=== PATIENT | male | born 1950 | race Two or more races ===

== ENCOUNTER 2020-08-12 08:43 | Outpatient (REF) | payer MEDICARE, MEDICAID, SELFPAY ==
[2020-08-12 11:23] LABS: Blood Urea Nitrogen 31 mg/dL (9-16); Estimated Glomerular Filt Rate > 60
== END 2020-08-12 08:44 | disposition home or self-care (01) ==
LOC: HO.LAB 08:43
PROVIDERS: PCP Internal Medicine; Visit Provider Urology
DX: C61 Malignant neoplasm of prostate (principal)
CPT/HCPCS: 36415; 82565; 84520

== ENCOUNTER → 2020-08-15 10:47 | Outpatient (REF) | payer MEDICARE, MEDICAID, SELFPAY ==
--- NOTE | 2020-08-15 | NM_ITS ---
EXAMINATION: NM BONE SCAN OF THE WHOLE BODY CLINICAL INFORMATION: Prostate cancer. COMPARISON: No previous bone scan or recent radiographs are available for comparison. TECHNIQUE: Multiple gamma scintillation camera images of the whole body were performed 2.5 hours following the intravenous administration of 37 mCi Tc-99m MDP. FINDINGS: In the head, no significant abnormalities are present. In the thoracic cage and upper extremities, there is mildly increased activity in the acromioclavicular and sternoclavicular joints bilaterally. Some residual radiopharmaceutical at the injection site in the right antecubital fossa is noted. In the spine, no significant abnormalities are present. In the pelvis, no significant abnormalities are present. In the lower extremities, minimally increased activity is present in the patellar and medial compartments of both knees and there is a mild diffuse increase in activity in the proximal right foot. No other definite bony abnormalities are noted. The urinary bladder and faint visualization of both kidneys are noted. IMPRESSION: A few mild nonspecific abnormalities are noted as described above and these are all likely arthritic or traumatic in etiology. None of these abnormalities is strongly suspicious for metastatic disease.
== END ==
LOC: HO.NUCMED 10:47
PROVIDERS: PCP Internal Medicine; Visit Provider Urology
DX: C61 Malignant neoplasm of prostate (principal)
CPT/HCPCS: 78306; A9503

== ENCOUNTER 2020-08-23 07:43 | Outpatient (REF) | payer MEDICARE, MEDICAID, SELFPAY ==
--- NOTE | 2020-08-23 08:02 | CT_ITS ---
EXAMINATION: CT ABDOMEN AND PELVIS WITH CONTRAST CLINICAL INFORMATION: Prostate cancer. COMPARISON: Previous bone scan from earlier this month. TECHNIQUE: Multidetector volumetric images were obtained from the superior aspect of the liver through the pubic symphysis following administration 85 mL of Omnipaque 350 intravenous contrast. Sagittal and coronal reformatted images were obtained on the technologist's workstation. Oral contrast: No This CT examination was performed using dose optimization techniques as appropriate, variously including the following: *Automated exposure control *Adjustment of mA and/or kV according to patient size (this includes techniques or standardized protocols for targeted exams where dose is matched to indication/reason for exam; i.e. extremities or head) *Use of iterative reconstruction technique DLP: 707 mGy-cm FINDINGS: LUNG BASES: There are 2 small calcified 3 mm left lower lobe pulmonary nodules. These may represent calcified granulomas. Lung bases are otherwise clear. LIVER, GALLBLADDER, AND BILIARY TREE: The liver is normal in size, shape, and attenuation. No focal hepatic lesion or biliary ductal dilatation is present. The gallbladder is unremarkable with no evidence of radiopaque gallstones, gallbladder wall thickening, or obvious pericholecystic inflammatory changes. PANCREAS: Unremarkable. SPLEEN: Unremarkable. ADRENAL GLANDS: Unremarkable. KIDNEYS AND URETERS: There is a small, 4 mm, low-attenuation lesion in the lower pole of the left kidney axial image 37 series 3. This is difficult to characterize due to small size and is questionable for angiomyolipoma versus cyst. There is a small, 3 mm, low-attenuation lesion in the upper pole of the right kidney axial images 31 and 32 series 3 also too small to definitely characterize. The kidneys are otherwise unremarkable. BLADDER: Not optimally distended. GASTROINTESTINAL TRACT: The small and large bowel are unremarkable. The appendix is unremarkable. ABDOMINAL WALL: No significant hernia is appreciated. LYMPH NODES: There are small bilateral retroperitoneal lymph nodes. Largest right lymph node is an iliac bifurcation lymph node measuring 8 mm axial image 75 series 3. Largest left lymph node is an external iliac node measuring 6 mm in diameter axial image 77 series 3. There are also bilateral lymph nodes adjacent to the common femoral arteries measuring 1 cm in diameter axial image 85 series 3. VASCULAR: Unremarkable. PELVIC VISCERA: The prostate gland is slightly enlarged measuring 4.7 x 5.2 cm in AP and transverse dimension. The periprostatic soft tissues are unremarkable. OSSEOUS STRUCTURES: There are degenerative changes of the spine. No bone lesion is seen. IMPRESSION: Slightly enlarged prostate gland. Small bilateral pelvic retroperitoneal lymph nodes.
[2020-08-23 08:49] LABS: Blood Urea Nitrogen 22 mg/dL (9-16); Estimated Glomerular Filt Rate > 60
[2020-08-23] MEDS: iohexoL 350 MG/ML 100 ML INFUS..BTL IV (10:23)
[2020-08-23] MEDS: Barium Sulfate Oral (Vanilla) 450 ML ORAL.SUSP 900 ML PO (10:24)
== END 2020-08-23 07:44 | disposition home or self-care (01) ==
LOC: HO.CT 07:43
PROVIDERS: PCP Internal Medicine; Visit Provider Urology
DX: C61 Malignant neoplasm of prostate (principal)
CPT/HCPCS: 74177; 82565; 84520

== ENCOUNTER → 2020-09-02 09:34 | Outpatient (BNVA) | payer MEDICARE, MEDICAID, SELFPAY | PROVIDERS: PCP Internal Medicine; Visit Provider Urology | DX: C61 Malignant neoplasm of prostate (principal); Z87.891 Personal history of nicotine dependence | CPT/HCPCS: 99214 ==

== ENCOUNTER → 2020-09-24 14:00 | Outpatient (BNVA) | payer MEDICARE, MEDICAID, SELFPAY | PROVIDERS: PCP Internal Medicine; Visit Provider Urology | DX: Z76.89 Persons encountering health services in other specified circumstances (principal) | CPT/HCPCS: 99212 ==

== ENCOUNTER 2020-10-22 07:49 | Outpatient (REF) | payer MEDICARE, MEDICAID, SELFPAY ==
[2020-10-22 08:09] VITALS: BP 163/79; PULSE 75; RESP 16; TEMP 37; O2SAT 96
[2020-10-22 08:13] VITALS: BMI 34.2
[2020-10-22 08:52] VITALS: BP 146/49; PULSE 71; RESP 16; O2SAT 99
--- NOTE | 2020-10-22 08:53 | P.HPSUR_ITS ---
Pre-Procedural Eval Section B Chief Complaint: PROSTATE CA, GOLD SEED IN MINOR Details of Present Illness: prostate cancer Relevant Family History (Specify if Yes): No Relevant Social History: None Present Medications: see Short Stay Collaborative assessment Medical History: No relevant PMH Allergies: Allergies Allergy/AdvReac Type Severity Reaction Status Date / Time seafood AdvReac Mild Nausea and Verified 08/26/20 09:33 Vomiting Review of Systems Sugical H&P ROS: Negative: Constitution, Cardiovascular, Respiratory, Neurological, Psychiatric, Hem-Onc, Allergic/Immunologic, Gastrointestinal, Genitourinary, Musculoskeletal, Integumentary, Endocrine and Eyes/Ears/Nose/Thr oat Exam Surgical H&P Exam: Normal: HEENT, Normal: Heart, Normal: Lungs, Normal: Extremities, Normal: Abdomen, Normal: Skin and Normal: Neurological Plan Diagnosis/Plan: Unchanged Patient has been examined and remains a candidate for the planned procedure
--- NOTE | 2020-10-22 08:54 | PM.OP ---
Brief Operative Note Date of Service: 10/22/20 Pre-op diagnosis: prostate cancer Post-op diagnosis: same Procedure: US guided gold seed implants Implants: 3 gold seeds Surgeon: Stuart Long MD Anesthesia: local Estimated blood loss (mL): 0 Pathology: none sent Condition: stable Disposition: same day
--- NOTE | 2020-10-22 08:55 | W.PM.OPN ---
Operative Note Operative Note Date of Service: 10/22/20 Narrative: Preoperative diagnosis: Prostate cancer Postoperative diagnosis: Prostate cancer Procedure: 1. Transrectal ultrasound-guided pudendal nerve block 2. Transrectal ultrasound-guided gold seed placement Surgeon: Dr. Stuart Long Anesthetic: Local Indications for procedure: Prostate Cancer Procedure: After informed consent was verified, the patient was brought into the procedure area and lay left-hand side down on the table. Patient identity confirmed. Perioperative antibiotics confirmed. Gel was placed per rectum Ultrasound probe was placed per rectum A ultrasound-guided pudendal nerve block was performed using 10 cc of 1% lidocaine. 8 cc was placed at the base and 2 cc of the apex. 3 gold seed markers placed. 2 on the right, 1 on the left. The purpose is for triangulation. He tolerated the procedure well. Was able to ambulate to bathroom after 5 minutes. Printed instructions regarding antibiotic use and common side effects such as low-grade temperature and bleeding were given
== END 2020-10-22 07:50 | disposition home or self-care (01) ==
LOC: HO.MS 07:49
PROVIDERS: Urology; PCP Internal Medicine; Visit Provider Nuclear Medicine
PROC: (CPT 55876; principal; 2020-10-22 08:30)
DX: C61 Malignant neoplasm of prostate (principal)
CPT/HCPCS: 55876; 76942; A4648

== ENCOUNTER 2020-11-28 08:54 | Outpatient (REF) | payer MEDICARE, MEDICAID, SELFPAY ==
[2020-11-28 09:34] LABS: MANUAL DIFF FLAG NO
[2020-11-28 09:38] LABS: Basophils Percent Auto 0.8 % (0-2); Eosinophils Absolute Auto 0.2 X10*3/uL (0.0-0.4); Eosinophils Percent Auto 4.2 % (0-4); Hemoglobin 13.7 g/dl (14.0-18.0); Imm Gran Abs Auto 0.02 X10*3/uL (0.00-0.03); Imm Gran Pct Auto 0.4 % (0.0-0.4); Lymphocytes Absolute Auto 1.5 X10*3/uL (1.2-4.9); Lymphocytes Percent Auto 29.8 % (20-40); Mean Corpuscular HGB Conc 32.6 g/dl (31.0-36.0); Mean Corpuscular Hemoglobin 29.1 pg (27.0-33.0); Mean Corpuscular Volume 89.4 fL (80-98); Mean Platelet Volume 10.9 fL (9.4-12.4); Monocytes Absolute Auto 0.4 X10*3/uL (0.1-1.2); Monocytes Percent Auto 8.8 % (2-11); Neutrophils Absolute Auto 2.8 X10*3/uL (2.0-8.3); Platelet Count 165 X10*3/uL (160-400); Red Cell Distribution Width 12.6 % (11.0-16.0)
[2020-11-28 09:45] LABS: Glucose Urine UA NEG (NEG); Leukocyte Esterase Urine NEG (NEG); Nitrite Urine NEG (NEG); PH 5.5 (5.0-8.0); Specific Gravity - Urine >= 1.030 (1.005-1.025); Urine Blood 2+ (NEG); Urine Ketones NEG (NEG); Urine Protein NEG (NEG-TRACE)
[2020-11-28 09:46] LABS: Appearance Urine CLEAR; Color Urine YELLOW
[2020-11-28 10:01] LABS: Mucus Urine TRACE /LPF; WBC Urine 0-2 /HPF (0-4)
[2020-11-28 10:08] LABS: Alanine Aminotransferase 17 U/L (0-40); Albumin Level 4.3 g/dL (3.5-5.0); Alkaline Phosphatase 40 U/L (39-117); Anion Gap 13 (12-20); Aspartate Amino Transferase 18 U/L (5-37); Bilirubin Total 0.7 mg/dL (0.0-1.0); Blood Urea Nitrogen 23 mg/dL (9-16); Calcium 8.9 mg/dL (8.4-10.2); Carbon Dioxide 26 mmol/L (22-29); Chloride 104 mmol/L (96-108); Cholesterol 171 mg/dL; Estimated Glomerular Filt Rate > 60; Glucose Fasting 156 mg/dL (60-99); HDL Cholesterol 57 mg/dL; LDL Cholesterol Calculated 97 mg/dl; Sodium 139 mmol/L (135-145); Total Protein 7.3 g/dL (6.5-8.0); Triglycerides 86 mg/dL
[2020-11-28 10:35] LABS: TSH reflex Free T4 1.17 mIU/mL (0.32-4.0)
[2020-11-28 10:49] LABS: Creatinine Urine 177.51 mg/dL; Microalbum/Creatinine Ratio Ur 19.1 ug/mg cr
[2020-11-28 10:53] LABS: Estimated Average Glucose 143 mg/dL; Hemoglobin A1c % 6.6 %
== END 2020-11-28 08:55 | disposition home or self-care (01) ==
LOC: HO.LAB 08:54
PROVIDERS: PCP Internal Medicine; Visit Provider Internal Medicine
DX: I10 Essential (primary) hypertension (principal); E11.9 Type 2 diabetes mellitus without complications; C61 Malignant neoplasm of prostate; D69.3 Immune thrombocytopenic purpura; E66.9 Obesity, unspecified
CPT/HCPCS: 36415; 80053; 80061; 81001; 82043; 83036; 84443; 85025

== ENCOUNTER → 2021-02-19 09:33 | Outpatient (BNVA) | payer MEDICARE, MEDICAID, SELFPAY | PROVIDERS: PCP Internal Medicine; Visit Provider Urology | DX: C61 Malignant neoplasm of prostate (principal) | CPT/HCPCS: 51798; 99212 ==

== ENCOUNTER 2021-03-18 09:13 | Outpatient (REF) | payer MEDICARE, MEDICAID, SELFPAY ==
[2021-03-18 10:59] LABS: Prostate Specific Antigen < 0.05 ng/mL (<0.05-4.0)
[2021-03-23 12:23] LABS: Testosterone, Total 14 ng/dL (250-1100)
== END 2021-03-18 09:14 | disposition home or self-care (01) ==
LOC: HO.LAB 09:13
PROVIDERS: PCP Internal Medicine; Visit Provider Urology
DX: N40.1 Benign prostatic hyperplasia with lower urinary tract symptoms (principal); N13.8 Other obstructive and reflux uropathy; E29.1 Testicular hypofunction; C61 Malignant neoplasm of prostate; Z12.5 Encounter for screening for malignant neoplasm of prostate
CPT/HCPCS: 36415; 84153; 84403

== ENCOUNTER 2021-03-31 09:43 | Outpatient (REF) | payer MEDICARE, MEDICAID, SELFPAY ==
[2021-03-31 10:21] LABS: MANUAL DIFF FLAG NO
[2021-03-31 10:42] LABS: Alanine Aminotransferase 17 U/L (0-40); Albumin Level 4.3 g/dL (3.5-5.0); Alkaline Phosphatase 44 U/L (39-117); Anion Gap 12 (12-20); Aspartate Amino Transferase 18 U/L (5-37); Bilirubin Total 0.9 mg/dL (0.0-1.0); Blood Urea Nitrogen 25 mg/dL (9-16); Calcium 9.2 mg/dL (8.4-10.2); Carbon Dioxide 25 mmol/L (22-29); Chloride 105 mmol/L (96-108); Cholesterol 175 mg/dL; Estimated Average Glucose 128 mg/dL; Estimated Glomerular Filt Rate > 60; Glucose Fasting 143 mg/dL (60-99); HDL Cholesterol 58 mg/dL; Hemoglobin A1c % 6.1 %; LDL Cholesterol Calculated 103 mg/dl; Sodium 138 mmol/L (135-145); Total Protein 7.2 g/dL (6.5-8.0); Triglycerides 72 mg/dL
[2021-03-31 10:46] LABS: Glucose Urine UA NEG (NEG); Leukocyte Esterase Urine NEG (NEG); Nitrite Urine NEG (NEG); PH 5.5 (5.0-8.0); Specific Gravity - Urine >= 1.030 (1.005-1.025); Urine Blood 2+ (NEG); Urine Ketones NEG (NEG); Urine Protein NEG (NEG-TRACE)
[2021-03-31 10:47] LABS: Appearance Urine CLEAR; Color Urine YELLOW
[2021-03-31 10:56] LABS: Eosinophils Absolute Auto 0.2 X10*3/uL (0.0-0.4); Eosinophils Percent Auto 4.9 % (0-4); Hematocrit 41.3 % (42-52); Hemoglobin 13.1 g/dl (14.0-18.0); Imm Gran Abs Auto 0.01 X10*3/uL (0.00-0.03); Imm Gran Pct Auto 0.3 % (0.0-0.4); Lymphocytes Absolute Auto 0.9 X10*3/uL (1.2-4.9); Lymphocytes Percent Auto 22.4 % (20-40); Mean Corpuscular HGB Conc 31.7 g/dl (31.0-36.0); Mean Corpuscular Hemoglobin 28.7 pg (27.0-33.0); Mean Corpuscular Volume 90.6 fL (80-98); Mean Platelet Volume 11.1 fL (9.4-12.4); Monocytes Absolute Auto 0.3 X10*3/uL (0.1-1.2); Monocytes Percent Auto 8.8 % (2-11); Neutrophils Absolute Auto 2.4 X10*3/uL (2.0-8.3); Neutrophils Percent Auto 62.6 % (45-73); Platelet Count 159 X10*3/uL (160-400); Red Blood Count 4.56 X10*6/uL (4.60-5.80); Red Cell Distribution Width 12.2 % (11.0-16.0); White Blood Count 3.9 X10*3/uL (4.8-10.8)
[2021-03-31 10:58] LABS: Mucus Urine 1+ /LPF; WBC Urine 0 /HPF (0-4)
[2021-03-31 10:59] LABS: Amorphous Sediment Urine 1+ /LPF; Uric Acid Crystals Urine 1+ /LPF
[2021-03-31 11:05] LABS: TSH reflex Free T4 1.09 uIU/mL (0.32-4.0)
[2021-03-31 11:23] LABS: Creatinine Urine 246.41 mg/dL; Microalbum/Creatinine Ratio Ur 12.9 ug/mg cr
== END 2021-03-31 09:44 | disposition home or self-care (01) ==
LOC: HO.LAB 09:43
PROVIDERS: PCP Internal Medicine; Visit Provider Internal Medicine
DX: I10 Essential (primary) hypertension (principal); E11.9 Type 2 diabetes mellitus without complications; D69.3 Immune thrombocytopenic purpura; C61 Malignant neoplasm of prostate; E66.9 Obesity, unspecified
CPT/HCPCS: 36415; 80053; 80061; 81001; 82043; 83036; 84443; 85025

== ENCOUNTER → 2021-04-04 13:04 | Outpatient (BNVA) | payer MEDICARE, MEDICAID, SELFPAY | PROVIDERS: PCP Internal Medicine; Visit Provider Urology | DX: C61 Malignant neoplasm of prostate (principal); N52.9 Male erectile dysfunction, unspecified; I10 Essential (primary) hypertension; E11.9 Type 2 diabetes mellitus without complications; Z79.899 Other long term (current) drug therapy; Z87.891 Personal history of nicotine dependence | CPT/HCPCS: 96402; 99212; J9217 ==

== ENCOUNTER 2021-07-25 08:29 | Outpatient (REF) | payer MEDICARE, MEDICAID, SELFPAY ==
[2021-07-25 11:40] LABS: Prostate Specific Antigen < 0.05 ng/mL (<0.05-4.0)
[2021-07-30 11:21] LABS: Testosterone, Total 17 ng/dL (250-1100)
== END 2021-07-25 08:30 | disposition home or self-care (01) ==
LOC: HO.LAB 08:29
PROVIDERS: PCP Internal Medicine; Visit Provider Urology
DX: C61 Malignant neoplasm of prostate (principal)
CPT/HCPCS: 36415; 84153; 84403

== ENCOUNTER 2021-09-03 09:14 | Outpatient (REF) | payer MEDICARE, MEDICAID, SELFPAY ==
[2021-09-03 09:31] LABS: MANUAL DIFF FLAG NO
[2021-09-03 09:45] LABS: Eosinophils Absolute Auto 0.2 X10*3/uL (0.0-0.4); Eosinophils Percent Auto 4.3 % (0-4); Hematocrit 39.9 % (42-52); Hemoglobin 12.5 g/dl (14.0-18.0); Imm Gran Abs Auto 0.01 X10*3/uL (0.00-0.03); Imm Gran Pct Auto 0.2 % (0.0-0.4); Lymphocytes Absolute Auto 0.9 X10*3/uL (1.2-4.9); Lymphocytes Percent Auto 21.4 % (20-40); Mean Corpuscular HGB Conc 31.3 g/dl (31.0-36.0); Mean Corpuscular Hemoglobin 28.5 pg (27.0-33.0); Mean Corpuscular Volume 91.1 fL (80-98); Mean Platelet Volume 10.6 fL (9.4-12.4); Monocytes Absolute Auto 0.4 X10*3/uL (0.1-1.2); Monocytes Percent Auto 8.6 % (2-11); Neutrophils Absolute Auto 2.7 X10*3/uL (2.0-8.3); Neutrophils Percent Auto 64.5 % (45-73); Platelet Count 169 X10*3/uL (160-400); Red Blood Count 4.38 X10*6/uL (4.60-5.80); White Blood Count 4.2 X10*3/uL (4.8-10.8)
[2021-09-03 09:57] LABS: Estimated Average Glucose 140 mg/dL; Hemoglobin A1c % 6.5 %
[2021-09-03 10:14] LABS: Appearance Urine CLEAR; Color Urine YELLOW; Glucose Urine UA NEG (NEG); Leukocyte Esterase Urine NEG (NEG); Nitrite Urine NEG (NEG); PH 5.5 (5.0-8.0); Specific Gravity - Urine >= 1.030 (1.005-1.025); UACC Culture Trigger NO; Urine Blood 2+ (NEG); Urine Ketones NEG (NEG); Urine Protein NEG (NEG-TRACE)
[2021-09-03 10:14] LABS: Alanine Aminotransferase 13 U/L (0-40); Albumin Level 4.2 g/dL (3.5-5.0); Alkaline Phosphatase 46 U/L (39-117); Anion Gap 12 (12-20); Aspartate Amino Transferase 16 U/L (5-37); Bilirubin Total 0.5 mg/dL (0.0-1.0); Blood Urea Nitrogen 26 mg/dL (9-16); Calcium 8.9 mg/dL (8.4-10.2); Carbon Dioxide 26 mmol/L (22-29); Chloride 104 mmol/L (96-108); Cholesterol 164 mg/dL; Estimated Glomerular Filt Rate > 60; Glucose Fasting 165 mg/dL (60-99); HDL Cholesterol 54 mg/dL; LDL Cholesterol Calculated 91 mg/dl; Potassium 4.4 mmol/L (3.3-5.1); Sodium 138 mmol/L (135-145); Total Protein 7.2 g/dL (6.5-8.0); Triglycerides 95 mg/dL
[2021-09-03 10:26] LABS: Squamous Epithelial Cell Urine TRACE /LPF; WBC Urine 0 /HPF (0-4)
[2021-09-03 10:36] LABS: TSH reflex Free T4 1.16 uIU/mL (0.32-4.0)
[2021-09-03 10:38] LABS: Creatinine Urine 158.34 mg/dL; Microalbum/Creatinine Ratio Ur 17.6 ug/mg cr
== END 2021-09-03 09:15 | disposition home or self-care (01) ==
LOC: HO.LAB 09:14
PROVIDERS: PCP Internal Medicine; Visit Provider Internal Medicine
DX: I10 Essential (primary) hypertension (principal); E78.00 Pure hypercholesterolemia, unspecified; E66.9 Obesity, unspecified; E11.9 Type 2 diabetes mellitus without complications; C61 Malignant neoplasm of prostate; G47.33 Obstructive sleep apnea (adult) (pediatric); Z86.2 Personal history of diseases of the blood and blood-forming organs and certain disorders involving the immune mechanism
CPT/HCPCS: 36415; 80053; 80061; 81001; 82043; 83036; 84443; 85025

== ENCOUNTER → 2021-10-21 11:06 | Outpatient (BNVA) | payer MEDICARE, MEDICAID, SELFPAY | PROVIDERS: PCP Internal Medicine; Visit Provider Urology | DX: C61 Malignant neoplasm of prostate (principal) | CPT/HCPCS: 96402; 99212; J9217 ==

== ENCOUNTER → 2021-12-17 09:52 | Outpatient (BNVA) | payer MEDICARE, MEDICAID, SELFPAY | PROVIDERS: PCP Internal Medicine; Visit Provider Internal Medicine | DX: G47.33 Obstructive sleep apnea (adult) (pediatric) (principal); E66.9 Obesity, unspecified; Z68.36 Body mass index [BMI] 36.0-36.9, adult | CPT/HCPCS: 99202 ==

== ENCOUNTER 2022-01-01 08:29 | Outpatient (REF) | payer MEDICARE, MEDICAID, SELFPAY ==
[2022-01-01 09:05] LABS: MANUAL DIFF FLAG NO
[2022-01-01 09:31] LABS: Basophils Percent Auto 0.8 % (0-2); Eosinophils Absolute Auto 0.2 X10*3/uL (0.0-0.4); Hematocrit 42.1 % (42.0-52.0); Hemoglobin 13.1 g/dl (14.0-18.0); Lymphocytes Percent Auto 25.8 % (20-40); Mean Corpuscular HGB Conc 31.1 g/dl (31.0-36.0); Mean Corpuscular Hemoglobin 27.8 pg (27.0-33.0); Mean Corpuscular Volume 89.2 fL (80.0-98.0); Mean Platelet Volume 10.7 fL (9.4-12.4); Monocytes Absolute Auto 0.3 X10*3/uL (0.1-1.2); Neutrophils Absolute Auto 2.4 x10*3/uL (2.0-8.3); Neutrophils Percent Auto 59.4 % (45-73); Platelet Count 184 X10*3/uL (160-400); Red Blood Count 4.72 X10*6/uL (4.60-5.80); Red Cell Distribution Width 13.1 % (11.0-16.0)
[2022-01-01 09:56] LABS: Alanine Aminotransferase 14 U/L (0-40); Albumin Level 4.2 g/dL (3.5-5.0); Alkaline Phosphatase 49 U/L (39-117); Anion Gap 10 (12-20); Aspartate Amino Transferase 19 U/L (5-37); Bilirubin Total 0.6 mg/dL (0.0-1.0); Blood Urea Nitrogen 22 mg/dL (9-16); Calcium 9.3 mg/dL (8.4-10.2); Carbon Dioxide 28 mmol/L (22-29); Chloride 104 mmol/L (96-108); Cholesterol 168 mg/dL; Estimated Glomerular Filt Rate > 60; Glucose Fasting 140 mg/dL (60-99); HDL Cholesterol 53 mg/dL; LDL Cholesterol Calculated 96 mg/dl; Potassium 4.4 mmol/L (3.3-5.1); Sodium 138 mmol/L (135-145); Total Protein 7.4 g/dL (6.5-8.0); Triglycerides 98 mg/dL
[2022-01-01 10:02] LABS: Estimated Average Glucose 148 mg/dL; Hemoglobin A1c % 6.8 %
[2022-01-01 10:21] LABS: TSH reflex Free T4 1.23 uIU/mL (0.32-4.0); Vitamin D 25-OH Total 21.5 ng/mL (>30)
[2022-01-01 10:51] LABS: Appearance Urine CLEAR; Color Urine YELLOW; Creatinine Urine 155.77 mg/dL; Glucose Urine UA NEG (NEG); Leukocyte Esterase Urine NEG (NEG); Microalbum/Creatinine Ratio Ur 16.6 ug/mg cr; Nitrite Urine NEG (NEG); PH 5.5 (5.0-8.0); Specific Gravity - Urine 1.025 (1.005-1.025); UACC Culture Trigger NO; Urine Blood 2+ (NEG); Urine Ketones NEG (NEG); Urine Protein NEG (NEG-TRACE)
[2022-01-01 11:04] LABS: Mucus Urine 1+ /LPF; WBC Urine 0-2 /HPF (0-4)
[2022-01-01 11:28] LABS: PSA,Total (Free>4and<10) < 0.05 ng/mL (0.00-4.00)
[2022-01-07 00:16] LABS: Testosterone, Total 16 ng/dL (250-1100)
== END 2022-01-01 08:30 | disposition home or self-care (01) ==
LOC: HO.LAB 08:29
PROVIDERS: PCP Internal Medicine; Visit Provider Urology
DX: I10 Essential (primary) hypertension (principal); E11.9 Type 2 diabetes mellitus without complications; E78.00 Pure hypercholesterolemia, unspecified; E66.9 Obesity, unspecified; E55.9 Vitamin D deficiency, unspecified; C61 Malignant neoplasm of prostate; G47.33 Obstructive sleep apnea (adult) (pediatric); Z12.5 Encounter for screening for malignant neoplasm of prostate
CPT/HCPCS: 36415; 80053; 80061; 81001; 82043; 82306; 83036; 84153; 84403; 84443; 85025

== ENCOUNTER → 2022-01-12 09:58 | Outpatient (REF) | payer MEDICARE, MEDICAID, SELFPAY | LOC: HO.SL 09:58 | PROVIDERS: PCP Internal Medicine; Visit Provider Internal Medicine | DX: G47.33 Obstructive sleep apnea (adult) (pediatric) (principal); R40.0 Somnolence; E66.9 Obesity, unspecified | CPT/HCPCS: 95806 ==

== ENCOUNTER 2022-01-26 10:08 | Outpatient (REF) | payer MEDICARE, MEDICAID, SELFPAY ==
[2022-01-26 10:57] LABS: Appearance Urine HAZY; Color Urine YELLOW; Glucose Urine UA NEG (NEG); Leukocyte Esterase Urine NEG (NEG); Nitrite Urine NEG (NEG); Specific Gravity - Urine >= 1.030 (1.005-1.025); UACC Culture Trigger NO; Urine Blood 2+ (NEG); Urine Ketones NEG (NEG); Urine Protein NEG (NEG-TRACE)
[2022-01-26 12:17] LABS: Mucus Urine 2+ /LPF; WBC Urine 0 /HPF (0-4)
== END 2022-01-26 10:09 | disposition home or self-care (01) ==
LOC: HO.LAB 10:08
PROVIDERS: PCP Internal Medicine; Visit Provider Internal Medicine
DX: I10 Essential (primary) hypertension (principal)
CPT/HCPCS: 81001

== ENCOUNTER → 2022-02-05 08:38 | Outpatient (BNVA) | payer MEDICARE, MEDICAID, SELFPAY | PROVIDERS: PCP Internal Medicine; Visit Provider Urology | DX: Z13.89 Encounter for screening for other disorder (principal) | CPT/HCPCS: Q3014 ==

== ENCOUNTER → 2022-02-11 10:17 | Outpatient (BNVA) | payer MEDICARE, MEDICAID, SELFPAY | PROVIDERS: PCP Internal Medicine; Visit Provider Internal Medicine | DX: E66.9 Obesity, unspecified (principal); G47.33 Obstructive sleep apnea (adult) (pediatric) | CPT/HCPCS: 99212 ==

== ENCOUNTER 2022-04-02 08:40 | Outpatient (REF) | payer MEDICARE, MEDICAID, SELFPAY ==
[2022-04-02 10:26] LABS: Prostate Specific Antigen < 0.05 ng/mL (<0.05-4.0)
[2022-04-07 18:57] LABS: Testosterone, Total 15 ng/dL (250-1100)
== END 2022-04-02 08:41 | disposition home or self-care (01) ==
LOC: HO.LAB 08:40
PROVIDERS: PCP Internal Medicine; Visit Provider Urology
DX: C61 Malignant neoplasm of prostate (principal); Z12.5 Encounter for screening for malignant neoplasm of prostate
CPT/HCPCS: 36415; 84153; 84403

== ENCOUNTER → 2022-04-10 08:08 | Outpatient (BNVA) | payer MEDICARE, MEDICAID, SELFPAY | PROVIDERS: PCP Internal Medicine; Visit Provider Urology | DX: C61 Malignant neoplasm of prostate (principal) | CPT/HCPCS: 99212 ==

== ENCOUNTER → 2022-04-15 10:24 | Outpatient (BNVA) | payer MEDICARE, MEDICAID, SELFPAY | PROVIDERS: PCP Internal Medicine; Visit Provider Internal Medicine | DX: G47.33 Obstructive sleep apnea (adult) (pediatric) (principal); E66.9 Obesity, unspecified; J45.909 Unspecified asthma, uncomplicated; U07.1 COVID-19 | CPT/HCPCS: Q3014 ==

== ENCOUNTER 2022-06-24 07:47 | Outpatient (REF) | payer MEDICARE, MEDICAID, SELFPAY ==
[2022-06-24 08:01] LABS: MANUAL DIFF FLAG NO
[2022-06-24 08:27] LABS: Estimated Average Glucose 146 mg/dL; Hemoglobin A1c % 6.7 %
[2022-06-24 08:31] LABS: Basophils Percent Auto 0.9 % (0-2); Eosinophils Absolute Auto 0.3 X10*3/uL (0.0-0.4); Eosinophils Percent Auto 5.7 % (0-4); Hematocrit 39.3 % (42.0-52.0); Hemoglobin 12.4 g/dl (14.0-18.0); Imm Gran Abs Auto 0.02 X10*3/uL (0.00-0.03); Imm Gran Pct Auto 0.5 % (0.0-0.4); Lymphocytes Absolute Auto 1.5 X10*3/uL (1.2-4.9); Lymphocytes Percent Auto 33.6 % (20-40); Mean Corpuscular HGB Conc 31.6 g/dl (31.0-36.0); Mean Corpuscular Hemoglobin 28.1 pg (27.0-33.0); Mean Corpuscular Volume 88.9 fL (80.0-98.0); Mean Platelet Volume 11.2 fL (9.4-12.4); Monocytes Absolute Auto 0.4 X10*3/uL (0.1-1.2); Neutrophils Absolute Auto 2.2 x10*3/uL (2.0-8.3); Neutrophils Percent Auto 49.3 % (45-73); Platelet Count 158 X10*3/uL (160-400); Red Blood Count 4.42 X10*6/uL (4.60-5.80); Red Cell Distribution Width 14.1 % (11.0-16.0); White Blood Count 4.4 X10*3/uL (4.8-10.8)
[2022-06-24 08:57] LABS: Alanine Aminotransferase 17 U/L (0-40); Alkaline Phosphatase 47 U/L (39-117); Anion Gap 15 (12-20); Aspartate Amino Transferase 17 U/L (5-37); Bilirubin Total 0.3 mg/dL (0.0-1.0); Blood Urea Nitrogen 24 mg/dL (9-16); Calcium 8.9 mg/dL (8.4-10.2); Carbon Dioxide 26 mmol/L (22-29); Chloride 105 mmol/L (96-108); Cholesterol 175 mg/dL; Estimated Glomerular Filt Rate > 60; Glucose Fasting 154 mg/dL (60-99); HDL Cholesterol 54 mg/dL; Potassium 4.4 mmol/L (3.3-5.1); Sodium 142 mmol/L (135-145); Total Protein 7.3 g/dL (6.5-8.0)
[2022-06-24 09:03] LABS: LDL Cholesterol Calculated 107 mg/dl; Triglycerides 70 mg/dL
[2022-06-24 09:12] LABS: TSH reflex Free T4 1.88 uIU/mL (0.32-4.0); Vitamin D 25-OH Total 22.7 ng/mL (>30)
[2022-06-24 09:39] LABS: Appearance Urine Clear; Color Urine Yellow; Glucose Urine UA Negative (Negative); Leukocyte Esterase Urine Negative (Negative); Nitrite Urine Negative (Negative); Urine Blood Small (1+) (Negative); Urine Ketones Negative (Negative); Urine Protein Negative (Neg-Trace)
[2022-06-24 09:52] LABS: Creatinine Urine 137.58 mg/dL; Microalbum/Creatinine Ratio Ur 15.2 ug/mg cr
[2022-06-24 09:58] LABS: Bacteria Urine None Seen (None Seen); Hyaline Casts Urine 0-2 /LPF (0-2); RBC Urine 0-2 /HPF (0-2); Squamous Epithelial Cell Urine 0-2 /HPF (0-2); WBC Urine 0-5 /HPF (0-5)
== END 2022-06-24 07:48 | disposition home or self-care (01) ==
LOC: HO.LAB 07:47
PROVIDERS: PCP Internal Medicine; Visit Provider Internal Medicine
DX: I10 Essential (primary) hypertension (principal); E55.9 Vitamin D deficiency, unspecified; E11.9 Type 2 diabetes mellitus without complications; E78.00 Pure hypercholesterolemia, unspecified
CPT/HCPCS: 36415; 80053; 80061; 81001; 82043; 82306; 83036; 84443; 85025

== ENCOUNTER 2022-07-29 08:40 | Outpatient (REF) | payer MEDICARE, MEDICAID, SELFPAY ==
[2022-07-29 09:52] LABS: Prostate Specific Antigen < 0.05 ng/mL (<0.05-4.0)
[2022-08-03 14:06] LABS: Testosterone, Total 91 ng/dL (250-1100)
== END 2022-07-29 08:41 | disposition home or self-care (01) ==
LOC: HO.LAB 08:40
PROVIDERS: PCP Internal Medicine; Visit Provider Urology
DX: Z12.5 Encounter for screening for malignant neoplasm of prostate (principal); J45.909 Unspecified asthma, uncomplicated; E66.9 Obesity, unspecified; G47.33 Obstructive sleep apnea (adult) (pediatric)
CPT/HCPCS: 36415; 84153; 84403; 99212

== ENCOUNTER → 2022-08-11 11:23 | Outpatient (BNVA) | payer MEDICARE, MEDICAID, SELFPAY | PROVIDERS: PCP Internal Medicine; Visit Provider Urology | DX: E11.69 Type 2 diabetes mellitus with other specified complication (principal); N52.1 Erectile dysfunction due to diseases classified elsewhere; C61 Malignant neoplasm of prostate; E34.9 Endocrine disorder, unspecified | CPT/HCPCS: Q3014 ==

== ENCOUNTER 2022-10-21 09:38 | Outpatient (REF) | payer MEDICARE, MEDICAID, SELFPAY ==
[2022-10-21 09:59] LABS: MANUAL DIFF FLAG NO
[2022-10-21 10:20] LABS: Basophils Percent Auto 0.9 % (0-2); Eosinophils Absolute Auto 0.2 X10*3/uL (0.0-0.4); Eosinophils Percent Auto 3.7 % (0-4); Hematocrit 38.9 % (42.0-52.0); Imm Gran Abs Auto 0.01 X10*3/uL (0.00-0.03); Imm Gran Pct Auto 0.2 % (0.0-0.4); Lymphocytes Percent Auto 23.3 % (20-40); Mean Corpuscular HGB Conc 30.8 g/dl (31.0-36.0); Mean Corpuscular Hemoglobin 27.3 pg (27.0-33.0); Mean Corpuscular Volume 88.6 fL (80.0-98.0); Mean Platelet Volume 10.8 fL (9.4-12.4); Monocytes Absolute Auto 0.3 X10*3/uL (0.1-1.2); Monocytes Percent Auto 7.6 % (2-11); Neutrophils Absolute Auto 2.8 x10*3/uL (2.0-8.3); Neutrophils Percent Auto 64.3 % (45-73); Platelet Count 181 X10*3/uL (160-400); Red Blood Count 4.39 X10*6/uL (4.60-5.80); Red Cell Distribution Width 13.5 % (11.0-16.0); White Blood Count 4.3 X10*3/uL (4.8-10.8)
[2022-10-21 10:46] LABS: Appearance Urine Clear; Color Urine Yellow; Glucose Urine UA Negative (Negative); Leukocyte Esterase Urine Negative (Negative); Nitrite Urine Negative (Negative); UMIC TRIGGER UACC YES; Urine Blood Small (1+) (Negative); Urine Ketones Negative (Negative); Urine Protein Negative (Neg-Trace)
[2022-10-21 10:57] LABS: Bacteria Urine None Seen (None Seen); Hyaline Casts Urine 0-2 /LPF (0-2); RBC Urine 0-2 /HPF (0-2); Squamous Epithelial Cell Urine 0-2 /HPF (0-2); WBC Urine 0-5 /HPF (0-5)
[2022-10-21 11:13] LABS: Creatinine Urine 144.62 mg/dL; Microalbum/Creatinine Ratio Ur 18.6 ug/mg cr
[2022-10-21 11:14] LABS: Estimated Average Glucose 137 mg/dL; Hemoglobin A1c % 6.4 %
[2022-10-21 15:09] LABS: Folate 14.8 ng/mL (> or = 4.0); Vitamin B12 575 pg/mL (200-900)
[2022-10-21 16:57] LABS: Alanine Aminotransferase 18 U/L (0-40); Albumin Level 4.1 g/dL (3.5-5.0); Alkaline Phosphatase 49 U/L (39-117); Anion Gap 12 (12-20); Aspartate Amino Transferase 18 U/L (5-37); Bilirubin Total 0.5 mg/dL (0.0-1.0); Blood Urea Nitrogen 23 mg/dL (9-16); Carbon Dioxide 25 mmol/L (22-29); Chloride 106 mmol/L (96-108); Cholesterol 156 mg/dL; Estimated Glomerular Filt Rate > 60; Glucose Fasting 163 mg/dL (60-99); HDL Cholesterol 55 mg/dL; LDL Cholesterol Calculated 91 mg/dl; Potassium 4.3 mmol/L (3.3-5.1); Sodium 139 mmol/L (135-145); TSH reflex Free T4 1.21 uIU/mL (0.32-4.0); Triglycerides 51 mg/dL; Vitamin D 25-OH Total 29.7 ng/mL (>30)
== END 2022-10-21 09:39 | disposition home or self-care (01) ==
LOC: HO.LAB 09:38
PROVIDERS: PCP Internal Medicine; Visit Provider Internal Medicine
DX: E78.00 Pure hypercholesterolemia, unspecified (principal); E11.9 Type 2 diabetes mellitus without complications; E53.8 Deficiency of other specified B group vitamins; I10 Essential (primary) hypertension; E55.9 Vitamin D deficiency, unspecified; Z86.2 Personal history of diseases of the blood and blood-forming organs and certain disorders involving the immune mechanism
CPT/HCPCS: 36415; 80053; 80061; 81001; 82043; 82306; 82607; 82746; 83036; 84443; 85025

== ENCOUNTER → 2022-11-19 09:18 | Outpatient (BNVA) | payer MEDICARE, MEDICAID, SELFPAY | PROVIDERS: PCP Internal Medicine; Visit Provider Internal Medicine | DX: G47.33 Obstructive sleep apnea (adult) (pediatric) (principal); E66.9 Obesity, unspecified; J45.909 Unspecified asthma, uncomplicated; Z68.35 Body mass index [BMI] 35.0-35.9, adult | CPT/HCPCS: 99212 ==

== ENCOUNTER 2022-12-04 09:20 | Outpatient (REF) | payer MEDICARE, MEDICAID, SELFPAY ==
[2022-12-04 12:20] LABS: Prostate Specific Antigen < 0.10 ng/mL (<0.05-4.0)
[2022-12-17 10:49] LABS: Testosterone, Total 202 ng/dL (250-1100)
== END 2022-12-04 09:21 | disposition home or self-care (01) ==
LOC: HO.LAB 09:20
PROVIDERS: PCP Internal Medicine; Visit Provider Urology
DX: Z12.5 Encounter for screening for malignant neoplasm of prostate (principal); C61 Malignant neoplasm of prostate; E29.1 Testicular hypofunction
CPT/HCPCS: 36415; 84153; 84403

== ENCOUNTER → 2022-12-17 08:56 | Outpatient (BNVA) | payer MEDICARE, MEDICAID, SELFPAY | PROVIDERS: PCP Internal Medicine; Visit Provider Urology | DX: E11.69 Type 2 diabetes mellitus with other specified complication (principal); N52.1 Erectile dysfunction due to diseases classified elsewhere; C61 Malignant neoplasm of prostate | CPT/HCPCS: 99212 ==

== ENCOUNTER 2023-02-25 09:33 | Outpatient (REF) | payer MEDICARE, MEDICAID, SELFPAY ==
[2023-02-25 09:45] LABS: MANUAL DIFF FLAG NO
[2023-02-25 09:58] LABS: Basophils Percent Auto 0.9 % (0-2); Eosinophils Absolute Auto 0.2 X10*3/uL (0.0-0.4); Eosinophils Percent Auto 3.5 % (0-4); Hematocrit 41.7 % (42.0-52.0); Hemoglobin 12.9 g/dl (14.0-18.0); Imm Gran Abs Auto 0.01 X10*3/uL (0.00-0.03); Imm Gran Pct Auto 0.2 % (0.0-0.4); Lymphocytes Absolute Auto 1.1 X10*3/uL (1.2-4.9); Lymphocytes Percent Auto 24.9 % (20-40); Mean Corpuscular HGB Conc 30.9 g/dl (31.0-36.0); Mean Corpuscular Hemoglobin 27.3 pg (27.0-33.0); Mean Corpuscular Volume 88.3 fL (80.0-98.0); Monocytes Absolute Auto 0.4 X10*3/uL (0.1-1.2); Monocytes Percent Auto 8.5 % (2-11); Neutrophils Absolute Auto 2.6 x10*3/uL (2.0-8.3); Platelet Count 176 X10*3/uL (160-400); Red Blood Count 4.72 X10*6/uL (4.60-5.80); Red Cell Distribution Width 13.7 % (11.0-16.0); White Blood Count 4.3 X10*3/uL (4.8-10.8)
[2023-02-25 10:22] LABS: Estimated Average Glucose 154 mg/dL
[2023-02-25 10:46] LABS: Alanine Aminotransferase 16 U/L (0-40); Albumin Level 4.2 g/dL (3.5-5.0); Alkaline Phosphatase 49 U/L (39-117); Anion Gap 13 (12-20); Aspartate Amino Transferase 16 U/L (5-37); Bilirubin Total 0.7 mg/dL (0.0-1.0); Blood Urea Nitrogen 22 mg/dL (9-16); Calcium 9.1 mg/dL (8.4-10.2); Carbon Dioxide 27 mmol/L (22-29); Chloride 105 mmol/L (96-108); Cholesterol 154 mg/dL; Estimated Glomerular Filt Rate 59; Glucose Fasting 166 mg/dL (60-99); HDL Cholesterol 51 mg/dL; LDL Cholesterol Calculated 94 mg/dl; Potassium 4.5 mmol/L (3.3-5.1); Sodium 140 mmol/L (135-145); Total Protein 7.1 g/dL (6.5-8.0); Triglycerides 46 mg/dL
[2023-02-25 11:19] LABS: Folate 15.2 ng/mL (> or = 4.0); Vitamin B12 600 pg/mL (200-900); Vitamin D 25-OH Total 33.8 ng/mL (>30)
[2023-02-25 11:23] LABS: Appearance Urine Clear; Color Urine Yellow; Glucose Urine UA Negative (Negative); Leukocyte Esterase Urine Negative (Negative); Nitrite Urine Negative (Negative); PH 5.5 (5.0-9.0); Specific Gravity - Urine 1.025 (1.005-1.025); UMIC TRIGGER UACC YES; Urine Blood Small (1+) (Negative); Urine Ketones Negative (Negative); Urine Protein Negative (Neg-Trace)
[2023-02-25 11:33] LABS: Bacteria Urine None Seen (None Seen); Hyaline Casts Urine 0-2 /LPF (0-2); RBC Urine 0-2 /HPF (0-2); Squamous Epithelial Cell Urine 0-2 /HPF (0-2); WBC Urine 0-5 /HPF (0-5)
[2023-02-25 11:39] LABS: Creatinine Urine 168.53 mg/dL; Microalbum/Creatinine Ratio Ur 26.7 ug/mg cr
== END 2023-02-25 09:34 | disposition home or self-care (01) ==
LOC: HO.LAB 09:33
PROVIDERS: PCP Internal Medicine; Visit Provider Internal Medicine
DX: E11.9 Type 2 diabetes mellitus without complications (principal); E78.00 Pure hypercholesterolemia, unspecified; E55.9 Vitamin D deficiency, unspecified; E53.8 Deficiency of other specified B group vitamins; I10 Essential (primary) hypertension
CPT/HCPCS: 36415; 80053; 80061; 81001; 81003; 82043; 82306; 82607; 82746; 83036; 84443; 85025

== ENCOUNTER 2023-03-26 09:23 | Outpatient (REF) | payer MEDICARE, MEDICAID, SELFPAY ==
[2023-03-26 11:31] LABS: Prostate Specific Antigen < 0.10 ng/mL (<0.05-4.0)
[2023-04-02 12:14] LABS: Testosterone, Total 224 ng/dL (250-1100)
== END 2023-03-26 09:24 | disposition home or self-care (01) ==
LOC: HO.LAB 09:23
PROVIDERS: PCP Internal Medicine; Visit Provider Urology
DX: Z12.5 Encounter for screening for malignant neoplasm of prostate (principal); C61 Malignant neoplasm of prostate
CPT/HCPCS: 36415; 84153; 84403

== ENCOUNTER → 2023-04-08 09:29 | Outpatient (BNVA) | payer MEDICARE, MEDICAID, SELFPAY | PROVIDERS: PCP Internal Medicine; Visit Provider Internal Medicine | DX: G47.33 Obstructive sleep apnea (adult) (pediatric) (principal); J45.909 Unspecified asthma, uncomplicated; E66.9 Obesity, unspecified; Z68.35 Body mass index [BMI] 35.0-35.9, adult | CPT/HCPCS: 99212 ==

== ENCOUNTER → 2023-04-09 08:52 | Outpatient (BNVA) | payer MEDICARE, MEDICAID, SELFPAY | PROVIDERS: PCP Internal Medicine; Visit Provider Urology | DX: E11.69 Type 2 diabetes mellitus with other specified complication (principal); N52.1 Erectile dysfunction due to diseases classified elsewhere; C61 Malignant neoplasm of prostate | CPT/HCPCS: 99212 ==

== ENCOUNTER 2023-07-26 08:54 | Outpatient (REF) | payer MEDICARE, MEDICAID, SELFPAY ==
[2023-07-26 10:56] LABS: Prostate Specific Antigen < 0.10 ng/mL (<0.05-4.0)
[2023-07-30 13:33] LABS: Testosterone, Total 269 ng/dL (250-1100)
== END 2023-07-26 08:55 | disposition home or self-care (01) ==
LOC: HO.LAB 08:54
PROVIDERS: Absent Provider Urology; PCP Internal Medicine; Visit Provider Internal Medicine
DX: Z12.5 Encounter for screening for malignant neoplasm of prostate (principal); C61 Malignant neoplasm of prostate
CPT/HCPCS: 36415; 84153; 84403

== ENCOUNTER 2023-08-02 09:32 | Outpatient (AMB) | payer MEDICARE, MEDICAID, SELFPAY ==
[2023-08-02 09:38] VITALS: BP 110/76; PULSE 74; O2SAT 98; BMI 34.4
--- NOTE | 2023-08-02 09:38 | A.OFFPC_ITS ---
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 Required: No Accompanied by: Self / Same As Patient Allergies seafood Adverse Reaction (Mild, Verified 08/02/23 10:03) Nausea and Vomiting Medication List - Last Reconciled 08/02/23 by Colton Gagnon MD blood sugar diagnostic (FreeStyle Test strips) As directed- test once a day - E11.9 blood-glucose meter (FreeStyle Lite Meter kit) As directed cholecalciferol (vitamin D3) 50 mcg PO DAILY 90 days lancets (FreeStyle Lancets) As directed - test once a day - E11.9 leuprolide acetate (6 month) (Eligard) 45 mg subcut [id number] lisinopril 10 mg PO DAILY 90 days tadalafil 5 mg PO DAILY 90 days tamsulosin 0.8 mg (2 x 0.4 mg) PO DAILY Tobacco use date assessed: 08/02/23 Fall risk assessment: No Falls in past year Last assessed Fall Risk: 08/02/23 Dental Screening Dental Screen Date: 08/02/23 Did you have a dental visit in the last 12 months?: No Did you have a dental problem in the last 6 months where you did not have access to dental care?: No Was dental information given to patient?: No HPI 5 month f/u HPI Details Patient comes in today for his follow up visit States that he feels okay He denies any headaches or dizziness Denies any chest pains, no SOB No nausea/vomiting, no abdominal pain No change in bowel habits noted States that he went to the lab last week and got his PSA and testosterone level done but for unknown reasons, never had the rest of his follow up labs done - recalls that he was advised that he had lab orders from both Dr. Long and Dr. Gagnon when he was there [facility] Medical History COVID-19 Asthma Vitamin D deficiency Somnolence, daytime Hypotestosteronism Tubular adenoma of colon (~08/20/17) Obesity (BMI 30-39.9) Obstructive sleep apnea hypopnea, severe History of autoimmune thrombocytopenia Type 2 diabetes mellitus without complication Benign essential hypertension Primary prostate adenocarcinoma Synovial cyst of sacral region Asthma Surgical History Status post surgery (~1999) Family History Brother Gallbladder cancer Mother Cancer Social History Household Members: Family Housing: House Alcohol intake: current Alcohol intake frequency: holidays/special occasions only Patient Tobacco Use Status: Former Tobacco user Tobacco use type: Cigarette e-Cigarette/Vaping Use: Never Used Second Hand Smoke Exposure: Yes service: No Current occupational status: disabled Cognitive needs: No Hearing needs: No Vision needs: Yes Questionnaire PHQ-9 Over the last 2 weeks, how often have you been bothered by any of the following problems? 1. Little interest or pleasure in doing things: not at all 2. Feeling down, depressed, or hopeless: not at all 3. Trouble falling or staying asleep, or sleeping too much: not at all 4. Feeling tired or having little energy: not at all 5. Poor appetite or overeating: not at all 6. Feeling bad about yourself - or that you are a failure or have let yourself or your family down: not at all 7. Trouble concentrating on things, such as reading the newspaper or watching television: not at all 8. Moving or speaking so slowly that other people could have noticed. Or the opposite - being so fidgety or restless that you have been moving around a lot more than usual: not at all 9. Thoughts that you would be better off or of hurting yourself in some way: not at all Total score: 0 Depression Screening Interpretation: Negative [id number] - PHQ-9 Billing: Yes Source: Developed by Drs. Buzz Camacho, Sheree Long, Edgar Meyers and colleagues, with an educational toro from [employer]. Thrive Questionnaire Date Thrive assessed: 08/02/23 I am a: Patient What is your living situation today?: I have a steady place to live Within the past 12 months, did the food you bought not last and you didn't have the money to get more?: Never true Within the past 12 months, did you worry whether your food would run out before you got money to buy more?: Never true Do you have trouble paying for medicines?: No Do you have trouble getting transportation to medical appointments?: No Do you have trouble paying your heating and electricity bill?: No Do you have trouble taking care of your child, family member or friend?: No Do you have trouble with day-to-day activities such as bathing, preparing meals, shopping, managing finances, etc.?: No Are you currently unemployed and looking for a job?: No Are you interested in more education?: No Please select the resources that you would like help with: None Currently or been in a relationship where the following occur: no concerns reported AUDIT C Alcohol Use Questionnaire (AUDIT-C) 1. How often do you have a drink containing alcohol?: Monthly or less 2. How many drinks containing alcohol do you have on a typical day when you are drinking?: 1 or 2 3. How often do you have six or more drinks on one occasion?: Never Total Score: 1 Score Reviewed/Action Taken: Yes JIMENEZ-7 AMB Questionnaire JIMENEZ-7 Date JIMENEZ - 7 assessed: 08/02/23 Feeling nervous, anxious, or on edge: 0 = Not at all Not being able to stop or control worryin = Not at all Worrying too much about different things: 0 = Not at all Trouble relaxin = Not at all Being so restless that it is hard to sit still: 0 = Not at all Becoming easily annoyed or irritable: 0 = Not at all Feeling afraid as if something awful might happen: 0 = Not at all Total JIMENEZ-7 score (0-4 normal; 5-9 mild; 10-14 moderate; 15-21 severe): 0 Source: Developed by Drs. Buzz Camacho, Sheree Long, Edgar Meyers and colleagues, with an educational toro from [employer]. Review of Systems Const Denies chills, Denies fatigue, Denies fever(s) and Denies headache(s) ENT Denies dysphagia, Denies dizziness, Denies otalgia, Denies headache(s), Denies neck pain, Denies odynophagia and Denies sore throat Card Denies chest pain, Denies palpitations and Denies dyspnea Resp Denies cough, Denies dyspnea and Denies wheezing GI Denies abdominal pain, Denies constipation, Denies dysphagia, Denies heartburn, Denies diarrhea, Denies nausea, Denies odynophagia and Denies vomiting Denies dysuria, Denies nocturia and Denies urinary frequency Musc Denies back pain and Denies neck pain Skin/Breast Denies rash Neuro Denies dizziness and Denies headache(s) Endo Denies fatigue and Denies palpitations Aller/Immun Denies wheezing Physical exam (Primary Care) Vital Signs: Last Vital Signs Pulse 74 08/02/23 09:38 BP 110/76 08/02/23 09:38 Pulse Ox 98 08/02/23 09:38 Oxygen Delivery Method Room Air 08/02/23 09:38 BMI result Body Mass Index 34.4 Tobacco/Smoking Status: Tobacco use Status Tobacco use date assessed 08/02/23 08/02/23 09:43 Patient Tobacco Use Status Former Tobacco user 08/02/23 09:43 Tobacco use type Cigarette 08/02/23 09:43 e-Cigarette/Vaping Use Never Used 08/02/23 09:43 PHQ-9: PHQ-9 Score PHQ-9: Total score 0 08/02/23 10:04 Depression Screening Interpretation: Negative Thrive Assessment: Date of Thrive Assessment Date Thrive assessed 08/02/23 08/02/23 09:43 Currently or been in a relationship where the following occur: no concerns reported Const General: no acute distress and alert HENMT Ears: TM's normal bilaterally and EAC's normal Throat: Yes posterior oropharynx normal and Yes tonsils normal (no TP congestion noted) Neck Neck: Yes no lymphadenopathy and Yes supple Resp Auscultation: clear to auscultation bilaterally, no rales and no wheezes Cardio Rate: regular rate Rhythm: regular rhythm Heart sounds: no murmurs GI Palpation (GI): Soft to palpation and nontender Auscultation: normal bowel sounds General: Yes no CVA tenderness Back/Spine/Pelvis Back: no CVA tenderness Skin Rashes: no rashes Extrem General: Yes no clubbing, cyanosis or edema Results AMB Hemoglobin A1c AMB Hemoglobin A1c 6.5 % Last Edit by Quentin Woods on 08/02/23 10:19 Assessment and Plan Assessment & Plan (1) Type 2 diabetes mellitus without complication: Code(s): E11.9 - Type 2 diabetes mellitus without complications Qualifiers: Diabetes mellitus supervisor intermediates insulin use: without supervisor intermediates use Qualified Code(s): E11.9 - Type 2 diabetes mellitus without complications Plan: Patient states that he went to the lab last week but for unclear reasons, his follow up labs were not done and he only had his PSA and testosterone level drawn In-office HgbA1c done today is at 6.5% (his HgbA1c increased to 7.0% from 6.4% previously) - goal is at least < 7.0%, but preferably < 6.5% Reinforced diabetic diet Patient was taken off Metformin a couple of years ago as his sensor was reportedly showing frequent episodes of hypoglycemia As his HgbA1c has again improved from previous, advised that we can hold off on starting him back on Rx and just have him continue to watch his diet for now Follow up with endocrinology as scheduled Will have him recheck his labs in 4 months for follow up - lab orders are printed out and handed to patient so hopefully we can avoid what happened again this time when the lab inexplicably did not do his follow up labs and only did the ones urology ordered (2) Benign essential hypertension: Code(s): I10 - Essential (primary) hypertension Plan: Reinforced low sodium diet - goal is systolic BP of at least 130 to 140 mm or less Continue Lisinopril 10 mg QD Patient again notes that his blood pressure readings tend to be a lot lower when he has it checked at home (3) Obstructive sleep apnea hypopnea, severe: Comment: PATIENT IS A KNOWN CASE OF SEVERE OBSTRUCTIVE SLEEP APNEA WITH TOTAL SLEEP TIME AHI 85 PATIENT ON CPAP , VERY COMPLIANT AND BENEFITTING . PRESSURE SETTING 6-20 CM WITH FULL FACE MASK. COMPLIANCE DATA COULD NOT BE DOWNLOADED. BUT ACCORDING TO HIM HE IS USING EVERY NIGHT AND IS SLEEPING OK. I ADVISED HIM TO CONTINUE USING IT EVERY NIGHT . WILL RECHECK HIM IN 6 MONTHS WITH THE COMPLIANCE DATA. Code(s): G47.33 - Obstructive sleep apnea (adult) (pediatric) Plan: Continue using his CPAP device when sleeping at night daily Follow up with Sleep Medicine as scheduled (4) Vitamin D deficiency: Code(s): E55.9 - Vitamin D deficiency, unspecified Plan: Continue Vitamin D3 2000 units QD (5) Prostate cancer: Code(s): C61 - Malignant neoplasm of prostate Plan: Completed external beam radiation with Dr Hill at [facility] (total of 8 weeks) last year (2020) Is currently still on GnRH (Eligard 45 mg Q 6 months) - started in 09/2020 Continue Tamsulosin 0.8 mg Q HS Follow up with urology as scheduled (6) Hypotestosteronism: Code(s): E34.9 - Endocrine disorder, unspecified Plan: Serum testosterone level remained very low when last checked a few months ago Follow up with urology as scheduled for this as testosterone replacement Tx needs to be done with caution in patients with prior malignancy (7) History of autoimmune thrombocytopenia: Code(s): Z86.2 - Personal history of diseases of the blood and blood-forming organs and certain disorders involving the immune mechanism Plan: (+) Hx of ITP Stable with no recent recurrence Will continue to monitor his CBC regularly Has not seen hematology / oncology since 2019 - was advised to just follow up with them as needed as his platelet count has been stable for years now (8) Obesity (BMI 30-39.9): Comment: LONGSTANDING GROSS OBESITY. PATIENT IS AWARE OF THIS ISSUE AND HE IS TRYING TO LOSE WEIGHT GRADUALLY. HE HAS SUCCESSFULLY LOST ABOUT 11 LB OF WEIGHT IN THE LAST 6 MONTHS. Code(s): E66.9 - Obesity, unspecified Plan: Reinforced diet/exercise as tolerated/lose weight Plan Follow up in 4 months Orders: Orders Complete Blood Count Auto Diff 4 Months I10 - Essential (primary) hypertension, Z86.2 - Personal history of diseases of the blood and blood-forming organs and certain disorders involving the immune mechanism Comprehensive [place]. Panel Fast 4 Months E78.00 - Pure hypercholesterolemia, unspecified Lipid Panel 4 Months E78.00 - Pure hypercholesterolemia, unspecified Hemoglobin A1c 4 Months E11.9 - Type 2 diabetes mellitus without complications Microalbumin, Random (w Creat) 4 Months E11.9 - Type 2 diabetes mellitus without complications UA CC w/rflx Micro + Cult 4 Months R30.0 - Dysuria TSH reflex Free T4 4 Months E78.00 - Pure hypercholesterolemia, unspecified Coding Level of Care Code Est Pt Level 4 (04609) Diagnoses Type 2 diabetes mellitus without complication, without long-term current use of insulin E11.9 Diabetes mellitus penitentiary insulin use: without penitentiary use Benign essential hypertension I10 Obstructive sleep apnea hypopnea, severe G47.33 Vitamin D deficiency E55.9 Prostate cancer C61 Hypotestosteronism E34.9 History of autoimmune thrombocytopenia Z86.2 Obesity (BMI 30-39.9) E66.9
== END 2023-08-02 10:19 | disposition home or self-care (01) ==
PROVIDERS: PCP Internal Medicine; Visit Provider Internal Medicine
DX: E11.9 Type 2 diabetes mellitus without complications (principal); I10 Essential (primary) hypertension; E55.9 Vitamin D deficiency, unspecified; C61 Malignant neoplasm of prostate; E66.9 Obesity, unspecified; Z68.34 Body mass index [BMI] 34.0-34.9, adult; Z86.2 Personal history of diseases of the blood and blood-forming organs and certain disorders involving the immune mechanism; G47.33 Obstructive sleep apnea (adult) (pediatric); E34.9 Endocrine disorder, unspecified
CPT/HCPCS: 83036; 99214

== ENCOUNTER 2023-08-13 10:18 | Outpatient (AMB) | payer MEDICARE, MEDICAID, SELFPAY ==
--- NOTE | 2023-08-13 10:24 | MHC.OFFVIS ---
Intake Intake Visit Reasons: 4M PSA/TESTO(Erectile Dys/Prostate Cancer)(set) Intake Note: Patient is Present for Follow Up LABS Urology Medication: Eligard(Q6M), Tadalafil, Tamsulosin Antibiotic Allergies: None Blood Thinners: None Pharmacy: [facility] Allergies seafood Adverse Reaction (Mild, Verified 08/13/23 10:25) Nausea and Vomiting Medication List - Last Reconciled 08/13/23 by Stuart Long MD blood sugar diagnostic (FreeStyle Test strips) As directed- test once a day - E11.9 blood-glucose meter (FreeStyle Lite Meter kit) As directed cholecalciferol (vitamin D3) 50 mcg PO DAILY 90 days lancets (FreeStyle Lancets) As directed - test once a day - E11.9 leuprolide acetate (6 month) (Eligard) 45 mg subcut [id number] lisinopril 10 mg PO DAILY 90 days tadalafil 5 mg PO DAILY 90 days tamsulosin 0.8 mg (2 x 0.4 mg) PO DAILY HPI HPI Comments History of Present Illness Details Fuentes is a pleasant Urdu-speaking male. He is a patient of Dr. Gagnon. He is seen for the following urologic conditions - prostate cancer - erectile dysfunction in setting of diabetes Urdu translation provided by qualified medical records specialist PSA remains low Testosterone recovered Scanty 6 month follow-up Prostate cancer diagnosis September 2020, grade group 4, initial therapy EXBRT with hormones Last GnRH 10/28 Labs PSA 07/30 <0.1 T 91, 11/30 <0.1, 03/30 P <0.1 T 224, 07/31 <0.1 T 269 Prostate cancer diagnosed by Dr. Nina September 2020 Initial biopsy - Jane 8 multi core Initial therapy - external beam radiation with [facility] GnRH - 09/27, 03/28, 10/28 Staging - 08/27 bone scan negative, CT scan NAD PSA 07/29 <0.1 T 17, 12/30 <0.1 16, 07/30 <0.1 T 91 Associated symptoms erectile dysfunction managed with generic Viagra Therapeutic plan continue Q 6 month surveillance Erectile dysfunction Background diabetes Initiate daily tadalafil PFSH Medical History COVID-19 Asthma Vitamin D deficiency Somnolence, daytime Hypotestosteronism Tubular adenoma of colon (~08/20/17) Obesity (BMI 30-39.9) Obstructive sleep apnea hypopnea, severe History of autoimmune thrombocytopenia Type 2 diabetes mellitus without complication Benign essential hypertension Primary prostate adenocarcinoma Synovial cyst of sacral region Asthma Surgical History Status post surgery (~1999) Family History Brother Gallbladder cancer Mother Cancer Social History Household Members: Family Housing: House Alcohol intake: current Alcohol intake frequency: holidays/special occasions only Patient Tobacco Use Status: Former Tobacco user Tobacco use type: Cigarette e-Cigarette/Vaping Use: Never Used Second Hand Smoke Exposure: Yes service: No Current occupational status: disabled Cognitive needs: No Hearing needs: No Vision needs: Yes Review of Systems Const Denies chills and Denies fever(s) Card Reports no additional complaints and Denies syncope Resp Denies cough GI Denies abdominal pain and Denies heartburn Reports as per HPI and Denies change in libido Neuro Denies syncope Psych Denies change in libido Endo Denies change in libido Physical Exam Const General: cooperative, healthy appearing, comfortable and no acute distress Orientation/consciousness: patient oriented x3 HEENT Face and sinus: Yes normal facial exam Mouth: moist mucous membranes Neck Neck: Yes normal visual inspection, Yes full ROM and Yes trachea midline Chest Chest palpation & inspection: normal inspection of the chest Resp Effort & Inspection: normal respiratory effort, able to speak in complete sentences and no respiratory distress GI Inspection: Yes normal to inspection Back/Spine/Pelvis Cervical Spine: normal cervical lordosis Thoracic/Lumbar Spine: thoracic and lumbar spine normal to inspection Skin General skin exam: no rashes or lesions noted Neuro General: patient oriented x3, gait normal, tone normal and moves all extremities Extrem General: Yes normal to inspection and Yes capillary refill normal Assessment & Plan Assessment & Plan (1) Erectile dysfunction associated with type 2 diabetes mellitus: Code(s): E11.69 - Type 2 diabetes mellitus with other specified complication; N52.1 - Erectile dysfunction due to diseases classified elsewhere (2) Primary prostate adenocarcinoma: Comment: High-grade disease. External beam radiation with hormones September 2020 Code(s): C61 - Malignant neoplasm of prostate Plan 6 month Orders: Orders Prostate Specific Antigen 6 Months C61 - Malignant neoplasm of prostate Medications: Refilled tadalafil 5 mg PO DAILY 90 tabs 1RF sexual activity 90 days E11.69 - Type 2 diabetes mellitus with other specified complication, N52.1 - Erectile dysfunction due to diseases classified elsewhere Patient Instructions: Imaging studies, laboratory and physical exam results were discussed and reviewed in detail. No major barriers to patient understanding were identified. An opportunity to ask questions regarding the treatment plan was provided. All questions were answered. The patient expressed understanding and agreement with the above treatment plan. The patient is aware they should contact our office by phone for worsening of their current condition or the appearance of new urologic symptoms. Compliance is encouraged with any medications and followup testing that is ordered. It is a privilege to participate in the urologic care of your patient. If you have any questions or concerns regarding treatment for the above conditions, or other urologic issues, please do not hesitate to contact me. The office telephone contact is [phone]. This note is constructed using voice recognition software. While every effort has been made to ensure accuracy group president errors may have been included. Yours sincerely, Dr Stuart Long MD, [facility] - Urology Providers of Expert, Compassionate Care for the Genitourinary System Coding Level of Care Code Est Pt Level 4 (92628) Diagnoses Erectile dysfunction associated with type 2 diabetes mellitus E11.; N52.1 Primary prostate adenocarcinoma C61
== END 2023-08-13 10:57 | disposition home or self-care (01) ==
PROVIDERS: PCP Internal Medicine; Visit Provider Urology
DX: E11.69 Type 2 diabetes mellitus with other specified complication (principal); N52.1 Erectile dysfunction due to diseases classified elsewhere; C61 Malignant neoplasm of prostate
CPT/HCPCS: 99213

== ENCOUNTER → 2023-08-13 10:18 | Outpatient (BNVA) | payer MEDICARE, MEDICAID, SELFPAY | PROVIDERS: PCP Internal Medicine; Visit Provider Urology | DX: E11.69 Type 2 diabetes mellitus with other specified complication (principal); N52.1 Erectile dysfunction due to diseases classified elsewhere; C61 Malignant neoplasm of prostate | CPT/HCPCS: 99212 ==

== ENCOUNTER 2023-10-20 09:14 | Outpatient (AMB) | payer MEDICARE, MEDICAID, SELFPAY ==
[2023-10-20 09:26] VITALS: BP 140/70; PULSE 71; O2SAT 98
--- NOTE | 2023-10-20 09:26 | MHC.OFFVIS ---
Intake Vital Signs 10/20/23 09:26 Weight 244 lb BP 140/70 H Blood Pressure Location Lt brachial Position Sitting Pulse 71 Pulse Source Pulse Oximeter Pulse Oximetry (%) 98 Oxygen Delivery Method Room Air Intake Visit Reasons: Obstructive sleep apnea Allergies seafood Adverse Reaction (Mild, Verified 10/20/23 09:45) Nausea and Vomiting Medication List - Last Reconciled 10/20/23 by Tamera Simon MD blood sugar diagnostic (FreeStyle Test strips) As directed- test once a day - E11.9 blood-glucose meter (FreeStyle Lite Meter kit) As directed cholecalciferol (vitamin D3) 50 mcg PO DAILY 90 days lancets (FreeStyle Lancets) As directed - test once a day - E11.9 leuprolide acetate (6 month) (Eligard) 45 mg subcut [id number] lisinopril 10 mg PO DAILY 90 days tadalafil 5 mg PO DAILY 90 days tamsulosin 0.8 mg (2 x 0.4 mg) PO DAILY Do you need a note to return to daycare/school/sports/work: No HPI Obstructive sleep apnea HPI Details This 73 years old gentleman who is grossly obese and diagnosis of obstructive sleep apnea is coming for follow-up after 6 months. He claims that he uses the CPAP every night and sleeps about 6-7 hours with the mask on. He is having some issue with the supplies and the mask, has not gotten any new supplies in the last 6 months. His machine does not record compliance but he expresses that he uses every night. Breathing simon has been stable no symptoms of cough or wheezing. [facility] Medical History COVID-19 Asthma Vitamin D deficiency Somnolence, daytime Hypotestosteronism Tubular adenoma of colon (~08/20/17) Obesity (BMI 30-39.9) Obstructive sleep apnea hypopnea, severe History of autoimmune thrombocytopenia Type 2 diabetes mellitus without complication Benign essential hypertension Primary prostate adenocarcinoma Synovial cyst of sacral region Asthma Surgical History Status post surgery (~1999) Family History Brother Gallbladder cancer Mother Cancer Social History Household Members: Family Housing: House Alcohol intake: current Alcohol intake frequency: holidays/special occasions only Patient Tobacco Use Status: Former Tobacco user Tobacco use type: Cigarette e-Cigarette/Vaping Use: Never Used Second Hand Smoke Exposure: Yes service: No Current occupational status: disabled Cognitive needs: No Hearing needs: No Vision needs: Yes Review of Systems Const All systems reviewed & are unremarkable except as noted in HPI and below Eyes Reports no additional complaints ENT Reports no additional complaints Card Denies chest pain, Denies irregular heart rhythm and Denies leg edema Resp Reports cough (Mild to moderate at this time because of COVID infection) and Denies wheezing GI Reports no additional complaints Reports nocturia Musc Reports no additional complaints Skin/Breast Reports dry skin Neuro Reports no additional complaints Psych Reports no additional complaints Aller/Immun Denies wheezing Physical Exam Vital Signs: Last Vital Signs Pulse 71 10/20/23 09:26 BP 140/70 H 10/20/23 09:26 Pulse Ox 98 10/20/23 09:26 Oxygen Delivery Method Room Air 10/20/23 09:26 LOOKS GROSSLY OBESE WITH A ROUND FACE AND VERY FAT NECK. Const General: comfortable, no acute distress, alert and awake Orientation/consciousness: patient oriented x3 HEENT Head: Yes normal to inspection General nose exam: No nasal polyps present and No nasal discharge present Face and sinus: Yes sinuses nontender Mouth: oropharynx abnormals (MALLAMPATI CLASS 4) Throat: Yes posterior oropharynx normal Eyes General: appearance normal, both eyes and all related structures Neck Neck: Yes normal visual inspection, Yes no lymphadenopathy, Yes trachea midline, Yes no JVD and Yes other (NECK SIZE 19 INCH) Thyroid: Thyroid normal Chest Chest palpation & inspection: normal inspection of the chest, normal palpation of entire chest wall and no tenderness Resp Effort & Inspection: normal respiratory effort Auscultation: clear to auscultation bilaterally, no crackles, no rales and no wheezes Percussion: percussion normal Cardio Palpation: normal PMI Rate: regular rate Rhythm: regular rhythm Heart sounds: no gallops and no murmurs GI Palpation (GI): Soft to palpation, nontender, No hepatosplenomegaly present, no masses and Other GI palpation findings present (IS GROSSLY OBESE AND PROTUBERANT) Auscultation: normal bowel sounds Back/Spine/Pelvis Thoracic/Lumbar Spine: thoracic and lumbar spine normal to inspection Skin General skin exam: no rashes or lesions noted Neuro General: patient oriented x3 and no focal motor deficits Cranial nerves: Yes CN's II-XII intact bilaterally Extrem General: Yes normal to inspection, Yes no clubbing, cyanosis or edema and Yes no calf tenderness Psych Appearance: grossly normal and well kempt Speech and movement: Normal speech and movement present Results Reviewed Results Reviewed: No printable compliance report, but he claims that he is using the CPAP every night 6-7 hours per night Assessment & Plan Assessment & Plan (1) Obesity (BMI 30-39.9): Comment: LONGSTANDING GROSS OBESITY. PATIENT IS AWARE OF THIS ISSUE AND HE IS TRYING TO LOSE WEIGHT GRADUALLY. NOW IT IS AT A STANDSTILL. Code(s): E66.9 - Obesity, unspecified Plan: ABOVE (2) Obstructive sleep apnea hypopnea, severe: Comment: PATIENT IS A KNOWN CASE OF SEVERE OBSTRUCTIVE SLEEP APNEA WITH TOTAL SLEEP TIME AHI 85 PATIENT ON CPAP , VERY COMPLIANT AND BENEFITTING . PRESSURE SETTING 6-20 CM WITH FULL FACE MASK. COMPLIANCE DATA COULD NOT BE DOWNLOADED. BUT ACCORDING TO HIM HE IS USING EVERY NIGHT AND IS SLEEPING OK. CLAIMS THAT HE NEEDS NEW SUPPLIES, ALSO HE NEEDS A FULLFACE MASK. I ADVISED HIM TO CONTINUE USING IT EVERY NIGHT . WILL RECHECK HIM IN 6 MONTHS WITH THE COMPLIANCE DATA. Code(s): G47.33 - Obstructive sleep apnea (adult) (pediatric) Plan: ADVISED TO CONTINUE USING THE CPAP EVERY NIGHT. ORDER FOR NEW SUPPLIES IS SENT TO DME SUPPLIER. (3) Asthma: Comment: MILD INTERMITTENT, DOES NOT NEED TO USE ANY BRONCHODILATORS REGULARLY. MAY USE PROAIR 2 PUFFS Q 4-6 HOURS ONLY P.R.N. Code(s): J45.909 - Unspecified asthma, uncomplicated Plan: ABOVE Coding Level of Care Code Est Pt Level 3 (47201) Diagnoses Obesity (BMI 30-39.9) E66.9 Obstructive sleep apnea hypopnea, severe G47.33 Asthma J45.909
== END 2023-10-20 09:47 | disposition home or self-care (01) ==
PROVIDERS: PCP Internal Medicine; Visit Provider Internal Medicine
DX: E66.9 Obesity, unspecified (principal); G47.33 Obstructive sleep apnea (adult) (pediatric); J45.909 Unspecified asthma, uncomplicated
CPT/HCPCS: 99213

== ENCOUNTER → 2023-10-20 09:14 | Outpatient (BNVA) | payer MEDICARE, MEDICAID, SELFPAY | PROVIDERS: PCP Internal Medicine; Visit Provider Internal Medicine | DX: G47.33 Obstructive sleep apnea (adult) (pediatric) (principal); J45.909 Unspecified asthma, uncomplicated; E66.9 Obesity, unspecified | CPT/HCPCS: 99212 ==

== ENCOUNTER 2023-11-17 08:07 | Outpatient (REF) | payer MEDICARE, MEDICAID, SELFPAY ==
[2023-11-17 08:28] LABS: MANUAL DIFF FLAG NO
[2023-11-17 08:47] LABS: Basophils Percent Auto 0.7 % (0-2); Eosinophils Absolute Auto 0.2 X10*3/uL (0.0-0.4); Eosinophils Percent Auto 3.6 % (0-4); Hematocrit 41.2 % (42.0-52.0); Hemoglobin 12.8 g/dl (14.0-18.0); Imm Gran Abs Auto 0.01 X10*3/uL (0.00-0.03); Imm Gran Pct Auto 0.2 % (0.0-0.4); Lymphocytes Absolute Auto 1.3 X10*3/uL (1.2-4.9); Lymphocytes Percent Auto 31.2 % (20-40); Mean Corpuscular HGB Conc 31.1 g/dl (31.0-36.0); Mean Corpuscular Hemoglobin 27.4 pg (27.0-33.0); Mean Platelet Volume 11.6 fL (9.4-12.4); Monocytes Absolute Auto 0.4 X10*3/uL (0.1-1.2); Monocytes Percent Auto 8.7 % (2-11); Neutrophils Absolute Auto 2.3 x10*3/uL (2.0-8.3); Neutrophils Percent Auto 55.6 % (45-73); Platelet Count 147 X10*3/uL (160-400); Red Blood Count 4.68 X10*6/uL (4.60-5.80); Red Cell Distribution Width 13.7 % (11.0-16.0); White Blood Count 4.1 X10*3/uL (4.8-10.8)
[2023-11-17 08:56] LABS: Estimated Average Glucose 126 mg/dL
[2023-11-17 09:00] LABS: Appearance Urine Clear; Color Urine Yellow; Glucose Urine UA Negative (Negative); Leukocyte Esterase Urine Negative (Negative); Nitrite Urine Negative (Negative); Urine Blood Negative (Negative); Urine Ketones Negative (Negative); Urine Protein Negative (Neg-Trace)
[2023-11-17 09:18] LABS: Creatinine Urine 136.71 mg/dL; Microalbum/Creatinine Ratio Ur 23.4 ug/mg cr (<30)
[2023-11-17 09:26] LABS: Alanine Aminotransferase 20 U/L (0-40); Albumin Level 4.2 g/dL (3.5-5.0); Alkaline Phosphatase 42 U/L (39-117); Anion Gap 13 (12-20); Aspartate Amino Transferase 20 U/L (5-37); Bilirubin Total 0.7 mg/dL (0.0-1.0); Blood Urea Nitrogen 23 mg/dL (9-16); Calcium 9.3 mg/dL (8.4-10.2); Carbon Dioxide 26 mmol/L (22-29); Chloride 106 mmol/L (96-108); Cholesterol 153 mg/dL (<200); Estimated Glomerular Filt Rate > 60; Glucose Fasting 136 mg/dL (60-99); HDL Cholesterol 57 mg/dL (>40); LDL Cholesterol Calculated 86 mg/dL (<100); Sodium 141 mmol/L (135-145); Total Protein 7.4 g/dL (6.5-8.0); Triglycerides 51 mg/dL (<150)
[2023-11-17 09:34] LABS: TSH reflex Free T4 1.43 uIU/mL (0.32-4.0); Vitamin D 25-OH Total 31.3 ng/mL (>30)
== END 2023-11-17 08:08 | disposition home or self-care (01) ==
LOC: HO.LAB 08:07
PROVIDERS: PCP Internal Medicine; Visit Provider Internal Medicine
DX: E78.00 Pure hypercholesterolemia, unspecified (principal); I10 Essential (primary) hypertension; E55.9 Vitamin D deficiency, unspecified; E11.9 Type 2 diabetes mellitus without complications; R30.0 Dysuria; Z86.2 Personal history of diseases of the blood and blood-forming organs and certain disorders involving the immune mechanism
CPT/HCPCS: 36415; 80053; 80061; 81003; 82043; 82306; 82570; 83036; 84443; 85025

== ENCOUNTER 2023-11-29 10:32 | Outpatient (AMB) | payer MEDICARE, MEDICAID, SELFPAY ==
--- NOTE | 2023-11-29 10:50 | A.OFFPC_ITS ---
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: No Accompanied by: Self / Same As Patient Allergies seafood Adverse Reaction (Mild, Verified 11/29/23 11:02) Nausea and Vomiting Medication List - Last Reconciled 11/29/23 by Colton Gagnon MD blood sugar diagnostic (FreeStyle Test strips) As directed- test once a day - E11.9 blood-glucose meter (FreeStyle Lite Meter kit) As directed cholecalciferol (vitamin D3) 50 mcg PO DAILY 90 days lancets (FreeStyle Lancets) As directed - test once a day - E11.9 leuprolide acetate (6 month) (Eligard) 45 mg subcut [id number] lisinopril 10 mg PO DAILY 90 days tadalafil 5 mg PO DAILY 90 days tamsulosin 0.8 mg (2 x 0.4 mg) PO DAILY Tobacco use date assessed: 11/29/23 Fall risk assessment: No Falls in past year Last assessed Fall Risk: 11/29/23 Dental Screening Dental Screen Date: 11/29/23 Did you have a dental visit in the last 12 months?: No Did you have a dental problem in the last 6 months where you did not have access to dental care?: No Was dental information given to patient?: No HPI 4 month f/u HPI Details Patient comes in today for his follow up visit States that he feels okay except for some pain in his toenails lately - states that a few of his toenails have gotten very thick and disfigured and is not difficult to trim and manage and a couple of them are started to hurt at times Would like to see if he can get a referral to podiatry to help him get these addressed He denies any headaches or dizziness Denies any chest pains, no SOB No nausea/vomiting, no abdominal pain No change in bowel habits noted Needs Rx refills for his glucometer test strips and lancets Also needs Rx for a new face mask for his CPAP device Had his follow up labs done a couple of weeks ago - to discuss his results [facility] Medical History COVID-19 Asthma Vitamin D deficiency Somnolence, daytime Hypotestosteronism Tubular adenoma of colon (~08/20/17) Obesity (BMI 30-39.9) Obstructive sleep apnea hypopnea, severe History of autoimmune thrombocytopenia Type 2 diabetes mellitus without complication Benign essential hypertension Primary prostate adenocarcinoma Synovial cyst of sacral region Asthma Surgical History Status post surgery (~1999) Family History Brother Gallbladder cancer Mother Cancer Social History Household Members: Family Housing: House Alcohol intake: current Alcohol intake frequency: holidays/special occasions only Patient Tobacco Use Status: Former Tobacco user Tobacco use type: Cigarette e-Cigarette/Vaping Use: Never Used Second Hand Smoke Exposure: Yes service: No Current occupational status: disabled Cognitive needs: No Hearing needs: No Vision needs: Yes Questionnaire PHQ-9 Over the last 2 weeks, how often have you been bothered by any of the following problems? 1. Little interest or pleasure in doing things: not at all 2. Feeling down, depressed, or hopeless: not at all 3. Trouble falling or staying asleep, or sleeping too much: not at all 4. Feeling tired or having little energy: not at all 5. Poor appetite or overeating: not at all 6. Feeling bad about yourself - or that you are a failure or have let yourself or your family down: not at all 7. Trouble concentrating on things, such as reading the newspaper or watching television: not at all 8. Moving or speaking so slowly that other people could have noticed. Or the opposite - being so fidgety or restless that you have been moving around a lot more than usual: not at all 9. Thoughts that you would be better off or of hurting yourself in some way: not at all Total score: 0 Depression Screening Interpretation: Negative Depression Screening Done: Yes 83654 - PHQ-9 Billing: Yes Source: Developed by Drs. Buzz Camacho, Sheree BEdgar Bermudez and colleagues, with an educational toro from [employer] Thrive Questionnaire Date Thrive assessed: 11/29/23 I am a: Patient What is your living situation today?: I have a steady place to live Within the past 12 months, did the food you bought not last and you didn't have the money to get more?: Never true Within the past 12 months, did you worry whether your food would run out before you got money to buy more?: Never true Do you have trouble paying for medicines?: No Do you have trouble getting transportation to medical appointments?: No Do you have trouble paying your heating and electricity bill?: No Do you have trouble taking care of your child, family member or friend?: No Do you have trouble with day-to-day activities such as bathing, preparing meals, shopping, managing finances, etc.?: No Are you currently unemployed and looking for a job?: No Are you interested in more education?: No Please select the resources that you would like help with: None Currently or been in a relationship where the following occur: no concerns reported THRIVE Score: 0 AUDIT C Alcohol Use Questionnaire (AUDIT-C) 1. How often do you have a drink containing alcohol?: Monthly or less 2. How many drinks containing alcohol do you have on a typical day when you are drinking?: 1 or 2 3. How often do you have six or more drinks on one occasion?: Never Total Score: 1 Score Reviewed/Action Taken: Yes JIMENEZ-7 AMB Questionnaire JIMENEZ-7 Date JIMENEZ - 7 assessed: 11/29/23 Feeling nervous, anxious, or on edge: 0 = Not at all Not being able to stop or control worryin = Not at all Worrying too much about different things: 0 = Not at all Trouble relaxin = Not at all Being so restless that it is hard to sit still: 0 = Not at all Becoming easily annoyed or irritable: 0 = Not at all Feeling afraid as if something awful might happen: 0 = Not at all Total JIMENEZ-7 score (0-4 normal; 5-9 mild; 10-14 moderate; 15-21 severe): 0 Source: Developed by Drs. Buzz Camacho, Edgar Enriquez and colleagues, with an educational toro from [employer] Review of Systems Const Denies chills, Denies fatigue, Denies fever(s) and Denies headache(s) ENT Denies dysphagia, Denies dizziness, Denies otalgia, Denies headache(s), Denies neck pain, Denies odynophagia and Denies sore throat Card Denies chest pain, Denies palpitations and Denies dyspnea Resp Denies cough, Denies dyspnea and Denies wheezing GI Denies abdominal pain, Denies constipation, Denies dysphagia, Denies heartburn, Denies diarrhea, Denies nausea, Denies odynophagia and Denies vomiting Denies dysuria, Denies nocturia and Denies urinary frequency Musc Denies back pain and Denies neck pain Skin/Breast Details: (+) painful and disfigured/thickened toenails Denies rash Neuro Denies dizziness and Denies headache(s) Endo Denies fatigue and Denies palpitations Aller/Immun Denies wheezing Physical exam (Primary Care) Vital Signs: Last Vital Signs Pulse 72 11/29/23 10:51 BP 130/62 11/29/23 10:51 Pulse Ox 96 11/29/23 10:51 Oxygen Delivery Method Room Air 11/29/23 10:51 BMI result Body Mass Index 33.9 Tobacco/Smoking Status: Tobacco use Status Tobacco use date assessed 11/29/23 11/29/23 10:54 Patient Tobacco Use Status Former Tobacco user 11/29/23 10:54 Tobacco use type Cigarette 11/29/23 10:54 e-Cigarette/Vaping Use Never Used 11/29/23 10:54 PHQ-9: PHQ-9 Score PHQ-9: Total score 0 11/29/23 10:54 Depression Screening Interpretation: Negative Thrive Assessment: Date of Thrive Assessment Date Thrive assessed 11/29/23 11/29/23 10:54 Currently or been in a relationship where the following occur: no concerns reported Const General: no acute distress and alert HENMT Ears: TM's normal bilaterally and EAC's normal Throat: Yes posterior oropharynx normal and Yes tonsils normal (no TP congestion noted) Neck Neck: Yes no lymphadenopathy and Yes supple Resp Auscultation: clear to auscultation bilaterally, no rales and no wheezes Cardio Rate: regular rate Rhythm: regular rhythm Heart sounds: no murmurs GI Palpation (GI): Soft to palpation and nontender Auscultation: normal bowel sounds General: Yes no CVA tenderness Back/Spine/Pelvis Back: no CVA tenderness Skin Rashes: no rashes Extrem General: Yes no clubbing, cyanosis or edema Results Reviewed Results Reviewed: Laboratory Tests 11/17/23 11/17/23 11/17/23 08:11 08:27 08:27 WBC 4.1 L Hgb 12.8 L Hct 41.2 L Plt Count 147 L Sodium 141 Potassium 4.0 Creatinine 1.11 Estimated GFR > 60 Fasting Glucose 136 H Hemoglobin A1c % 6.0 Calcium 9.3 AST 20 ALT 20 Triglycerides 51 Cholesterol 153 LDL Cholesterol, Calc 86 HDL Cholesterol 57 25-OH Vitamin D Total 31.3 TSH 1.43 Ur Specific [place] 1.020 Urine Protein Negative Urine Glucose (UA) Negative Urine Blood Negative Urine Nitrite Negative Ur Leukocyte Esterase Negative Microalb/Creat Ratio 23.4 Assessment and Plan Assessment & Plan (1) Type 2 diabetes mellitus without complication: Code(s): E11.9 - Type 2 diabetes mellitus without complications Qualifiers: Diabetes mellitus detention insulin use: without detention use Qualified Code(s): E11.9 - Type 2 diabetes mellitus without complications Plan: His HgbA1c has improved to 6.0% on his labs done a couple of weeks ago (in- office HgbA1c was at 6.5% a few months ago) - goal is at least < 7.0%, but preferably < 6.5% Reinforced diabetic diet Patient was taken off Metformin a couple of years ago as his sensor was reported ly showing frequent episodes of hypoglycemia and he has been controlling his diabetes with only diet modification since Follow up with endocrinology as scheduled Will have him recheck his labs in 4 months for follow up Per request, Rx refilled for glucometer test strips and lancets (2) Benign essential hypertension: Code(s): I10 - Essential (primary) hypertension Plan: Reinforced low sodium diet - goal is systolic BP of at least 130 to 140 mm or less Continue Lisinopril 10 mg QD Patient again notes that his blood pressure readings tend to be a lot lower when he has it checked at home (3) Obstructive sleep apnea hypopnea, severe: Comment: PATIENT IS A KNOWN CASE OF SEVERE OBSTRUCTIVE SLEEP APNEA WITH TOTAL SLEEP TIME AHI 85 PATIENT ON CPAP , VERY COMPLIANT AND BENEFITTING . PRESSURE SETTING 6-20 CM WITH FULL FACE MASK. COMPLIANCE DATA COULD NOT BE DOWNLOADED. BUT ACCORDING TO HIM HE IS USING EVERY NIGHT AND IS SLEEPING OK. CLAIMS THAT HE NEEDS NEW SUPPLIES, ALSO HE NEEDS A FULLFACE MASK. I ADVISED HIM TO CONTINUE USING IT EVERY NIGHT . WILL RECHECK HIM IN 6 MONTHS WITH THE COMPLIANCE DATA. Code(s): G47.33 - Obstructive sleep apnea (adult) (pediatric) Plan: Continue using his CPAP device when sleeping at night daily He is instructed to contact the company that provided him with his CPAP device for a new face mask Follow up with Sleep Medicine as scheduled (4) Vitamin D deficiency: Code(s): E55.9 - Vitamin D deficiency, unspecified Plan: Continue Vitamin D3 2000 units QD (5) Prostate cancer: Code(s): C61 - Malignant neoplasm of prostate Plan: Completed external beam radiation with Dr Hill at [facility] (for a total of 8 weeks) back in 2020 Is currently still on GnRH (Eligard 45 mg Q 6 months) - started in 09/2020 Continue Tamsulosin 0.8 mg Q HS Follow up with urology as scheduled (6) Hypotestosteronism: Code(s): E34.9 - Endocrine disorder, unspecified Plan: Serum testosterone level remained very low when last checked last year Follow up with urology as scheduled for this as testosterone replacement Tx needs to be done with caution in patients with prior malignancy (7) History of autoimmune thrombocytopenia: Code(s): Z86.2 - Personal history of diseases of the blood and blood-forming organs and certain disorders involving the immune mechanism Plan: (+) Hx of ITP He is reassured that his platelet count has been stable for a while now with no recent recurrence Will continue to monitor his CBC regularly Has not seen hematology / oncology since 2019 - was advised to just follow up with them as needed as his platelet count has been stable for years now (8) Onychomycosis: Code(s): B35.1 - Tinea unguium Plan: Will refer him to podiatry for further evaluation and management (9) Obesity (BMI 30-39.9): Comment: LONGSTANDING GROSS OBESITY. PATIENT IS AWARE OF THIS ISSUE AND HE IS TRYING TO LOSE WEIGHT GRADUALLY. NOW IT IS AT A STANDSTILL. Code(s): E66.9 - Obesity, unspecified Plan: Reinforced diet/exercise as tolerated/lose weight Plan Follow up in 4 months Orders: Orders Comprehensive Chicken. Panel Fast 4 Months E78.00 - Pure hypercholesterolemia, unspecified Lipid Panel 4 Months E78.00 - Pure hypercholesterolemia, unspecified TSH reflex Free T4 4 Months E78.00 - Pure hypercholesterolemia, unspecified UA CC w/rflx Micro + Cult 4 Months R30.0 - Dysuria Vitamin B12 and Folate 4 Months E53.8 - Deficiency of other specified B group vitamins Complete Blood Count Auto Diff 4 Months D64.9 - Anemia, unspecified Hemoglobin A1c 4 Months E11.9 - Type 2 diabetes mellitus without complications Microalbumin, Random (w Creat) 4 Months E11.9 - Type 2 diabetes mellitus without complications Vitamin D 25-OH Total 4 Months E55.9 - Vitamin D deficiency, unspecified Referrals Podiatry Referral B35.1 - Tinea unguium Medications: Refilled blood sugar diagnostic (FreeStyle Test strips) As directed- test once a day - E11.9 100 ea 5RF E11.9 - Type 2 diabetes mellitus without complications lancets (FreeStyle Lancets) As directed - test once a day - E11.9 100 ea 5RF E11.9 - Type 2 diabetes mellitus without complications Coding Level of Care Code Est Pt Level 4 (25306) Diagnoses Type 2 diabetes mellitus without complication, without long-term current use of insulin E11.9 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
[2023-11-29 10:51] VITALS: BP 130/62; PULSE 72; O2SAT 96; BMI 33.9
== END 2023-11-29 11:29 | disposition home or self-care (01) ==
PROVIDERS: PCP Internal Medicine; Visit Provider Internal Medicine
DX: E11.9 Type 2 diabetes mellitus without complications (principal); C61 Malignant neoplasm of prostate; E66.9 Obesity, unspecified; Z68.33 Body mass index [BMI] 33.0-33.9, adult; I10 Essential (primary) hypertension; G47.33 Obstructive sleep apnea (adult) (pediatric); E55.9 Vitamin D deficiency, unspecified; E34.9 Endocrine disorder, unspecified; Z86.2 Personal history of diseases of the blood and blood-forming organs and certain disorders involving the immune mechanism; B35.1 Tinea unguium
CPT/HCPCS: 99214

== ENCOUNTER 2023-12-25 10:57 | Outpatient (AMB) | payer MEDICARE, MEDICAID, SELFPAY ==
[2023-12-25 11:08] VITALS: BP 130/60; PULSE 80; TEMP 36.9; O2SAT 98; BMI 35.6
--- NOTE | 2023-12-25 11:08 | AM.OFFWIN_ITS ---
Intake Vital Signs 12/25/23 11:08 Height 5 ft 11 in Weight 255 lb BMI 35.6 BP 130/60 Blood Pressure Location Rt brachial Position Sitting Pulse 80 Pulse Source Pulse Oximeter Temp 98.5 F Temp Source Oral Pulse Oximetry (%) 98 Oxygen Delivery Method Room Air Intake Visit Reasons: EP Dizzy, Sore throat, Congestion Intake Note: Pt is here today c/o vertigo, S/T and chest congestion x3days Patient Tobacco Use Status: Former Tobacco user Allergies seafood Adverse Reaction (Mild, Verified 12/25/23 11:09) Nausea and Vomiting HPI HPI Comments History of Present Illness Details 73-year-old male who presents for upper respiratory symptoms patient has been congested sore through ear pain x3 4 days. In addition he endorses some episodic dizziness that is present only with rapid changes in position standing and sitting. Denies headaches or vision changes. [facility] Medical History COVID-19 Asthma Vitamin D deficiency Somnolence, daytime Hypotestosteronism Tubular adenoma of colon (~08/20/17) Obesity (BMI 30-39.9) Obstructive sleep apnea hypopnea, severe History of autoimmune thrombocytopenia Type 2 diabetes mellitus without complication Benign essential hypertension Primary prostate adenocarcinoma Synovial cyst of sacral region Asthma Surgical History Status post surgery (~1999) Family History Brother Gallbladder cancer Mother Cancer Social History Household Members: Family Housing: House Alcohol intake: current Alcohol intake frequency: holidays/special occasions only Patient Tobacco Use Status: Former Tobacco user Tobacco use type: Cigarette e-Cigarette/Vaping Use: Never Used Second Hand Smoke Exposure: Yes service: No Current occupational status: disabled Cognitive needs: No Hearing needs: No Vision needs: Yes Review of Systems ENT Reports vertigo, Reports sinus pressure and Reports sore throat Resp Reports chest congestion and Reports cough Neuro Reports vertigo Physical Exam Vital Signs: Last Vital Signs Temp 98.5 F 12/25/23 11:08 Pulse 80 12/25/23 11:08 BP 130/60 12/25/23 11:08 Pulse Ox 98 12/25/23 11:08 Oxygen Delivery Method Room Air 12/25/23 11:08 BMI result Body Mass Index 35.6 Const General: cooperative, no acute distress and alert Orientation/consciousness: patient oriented x3 Limitations: no limitations HEENT Head: Yes normal to inspection Ears: hearing grossly normal bilaterally and external ears normal General nose exam: Normal external nose present Eyes General: appearance normal, both eyes and all related structures Neck Neck: Yes normal visual inspection Chest Chest palpation & inspection: normal inspection of the chest Resp Effort & Inspection: normal respiratory effort, able to speak in complete sentences and no audible wheezes Auscultation: clear to auscultation bilaterally Cardio Rate: regular rate Rhythm: regular rhythm GI Inspection: Yes normal to inspection Palpation (GI): Soft to palpation and nontender Skin General skin exam: no rashes or lesions noted Neuro Other: NEURO PHYSCIAL EXAM Alert and oriented to person, place, time speech: clear, fluent CN II: visual acuity grossly intact b/l, PERRLA CN III, IV, : EOMI CN V: facial sensation grossly intact to light touch b/l CN VII: symmetric facial movement b/l, no facial droop CN VIII: hearing intact to finger rub b/l, no nystagmus CN IX, X: uvula midline CN XI: 5/5 strength with SCM and trapezius b/l CN XII: midline tongue protrusion, no atrophy or fasciculations motor: 5/5 muscle strength of UE/LE b/l, no pronator drift sensory: grossly intact b/l to light touch coordination: No dysmetria or dysdiadochokinesia with rapid alternating movement and finger to nose testing General: patient oriented x3 Psych Appearance: grossly normal Mental Status: mental status grossly normal Speech and movement: Normal speech and movement present Affect: normal affect Attitude: cooperative Thought process: Normal thought process present Thought content: Normal thought content present Results AMB Rapid Strep AMB Rapid Strep Negative Last Edit by Maira Duran CMA on 12/25/23 11:17 Results Reviewed Results Reviewed: Laboratory Last Values Strep Scn Rapid [facility] Negative 12/25/23 11:16 Assessment & Plan Assessment & Plan (1) URI (upper respiratory infection): Code(s): J06.9 - Acute upper respiratory infection, unspecified Qualifiers: URI type: unspecified URI Qualified Code(s): J06.9 - Acute upper respi ratory infection, unspecified Plan: Suspect URI viral versus bacterial coverage with azithromycin. We will also send for COVID test with regard to dizziness suspect orthostasis versus vertigo. Given absence of other concerning signs neuro mole neurological examination and intermittent episodes of dizziness particularly with standing and sitting. Strict return precautions given. Orders: Orders AMB Rapid Strep Screen Today Z13.9 - Encounter for screening, unspecified BinaxNOW Covid-19 Ag Today J06.9 - Acute upper respiratory infection, unspecified Medications: New azithromycin For 250 mg dose pack: take 500 mg today (day 1), then 250 mg for 4 days (days 2-5) PO 6 tabs 0RF Coding Level of Care Code Est Pt Level 3 (67484) Diagnoses Upper respiratory tract infection, unspecified type J06.9 URI type: unspecified URI
== END 2023-12-25 11:47 | disposition home or self-care (01) ==
PROVIDERS: PCP Internal Medicine; Visit Provider Physician Assistant
DX: J06.9 Acute upper respiratory infection, unspecified (principal); J02.9 Acute pharyngitis, unspecified
CPT/HCPCS: 87880; 99213

== ENCOUNTER 2023-12-25 11:44 | Outpatient (REF) | payer MEDICARE, MEDICAID, SELFPAY ==
[2023-12-25 12:06] LABS: Binax Internal Control QC Valid; Binax Now Covid-19 Ag Negative (Negative); Binax Performed by: HO.BONILM
== END 2023-12-25 11:45 | disposition home or self-care (01) ==
LOC: HO.HMGCLDS 11:44
PROVIDERS: Visit Provider Physician Assistant
DX: J06.9 Acute upper respiratory infection, unspecified (principal); Z11.52 Encounter for screening for COVID-19; Z20.828 Contact with and (suspected) exposure to other viral communicable diseases
CPT/HCPCS: 87811

== ENCOUNTER 2024-01-20 09:40 | Outpatient (REF) | payer OTHER, SELFPAY ==
[2024-01-20 11:53] LABS: Prostate Specific Antigen < 0.10 ng/mL (<0.05-4.0)
== END 2024-01-20 09:41 | disposition home or self-care (01) ==
LOC: HO.LAB 09:40
PROVIDERS: PCP Internal Medicine; Visit Provider Urology
DX: Z12.5 Encounter for screening for malignant neoplasm of prostate (principal); C61 Malignant neoplasm of prostate
CPT/HCPCS: 36415; 84153

== ENCOUNTER → 2024-02-15 10:07 | Outpatient (BNVA) | payer OTHER, MEDICAID, SELFPAY | PROVIDERS: PCP Internal Medicine; Visit Provider Urology | DX: C61 Malignant neoplasm of prostate (principal); E11.69 Type 2 diabetes mellitus with other specified complication; N52.1 Erectile dysfunction due to diseases classified elsewhere | CPT/HCPCS: 99212 ==

== ENCOUNTER 2024-02-15 10:23 | Outpatient (AMB) | payer OTHER, SELFPAY ==
--- NOTE | 2024-02-15 10:14 | A.OFFVIS_ITS ---
Intake Intake Visit Reasons: 6m PSA(set)Confirmed Allergies seafood Adverse Reaction (Mild, Verified 12/25/23 11:09) Nausea and Vomiting HPI HPI Comments History of Present Illness Details Fuentes is a pleasant Tanzanian-speaking male. He is a patient of Dr. Gagnon. He is seen for the following urologic conditions - prostate cancer - erectile dysfunction in setting of miguel yulia Tanzanian translation provided by qualified medical front desk coordinator Continues with six-month follow-up out to 10 years Prostate cancer diagnosis September 2020, grade group 4, initial therapy EXBRT with hormones Last GnRH 10/28 Labs PSA 07/30 <0.1 T 91, 11/30 <0.1, 03/30 P <0.1 T 224, 07/31 <0.1 T 269, 01/29 <0.1 Prostate cancer diagnosed by Dr. Nina September 2020 Initial biopsy - Anthony 8 multi core Initial therapy - external beam radiation with [facility] Dr [facility] GnRH - 09/27, 03/28, 10/28 Staging - 08/27 bone scan negative, CT scan NAD PSA 07/29 <0.1 T 17, 12/30 <0.1 16, 07/30 <0.1 T 91 Associated symptoms erectile dysfunction managed with generic Viagra Therapeutic plan continue Q 6 month surveillance Erectile dysfunction Background diabetes Initiate daily tadalafil PFSH Medical History COVID-19 Asthma Vitamin D deficiency Somnolence, daytime Hypotestosteronism Tubular adenoma of colon (~08/20/17) Obesity (BMI 30-39.9) Obstructive sleep apnea hypopnea, severe History of autoimmune thrombocytopenia Type 2 diabetes mellitus without complication Benign essential hypertension Primary prostate adenocarcinoma Synovial cyst of sacral region Asthma Surgical History Status post surgery (~1999) Family History Brother Gallbladder cancer Mother Cancer Social History Household Members: Family Housing: House Alcohol intake: current Alcohol intake frequency: holidays/special occasions only Patient Tobacco Use Status: Former Tobacco user Tobacco use type: Cigarette e-Cigarette/Vaping Use: Never Used Second Hand Smoke Exposure: Yes service: No Current occupational status: disabled Cognitive needs: No Hearing needs: No Vision needs: Yes Review of Systems Const Denies chills and Denies fever(s) Card Reports no additional complaints and Denies syncope Resp Denies cough GI Denies abdominal pain and Denies heartburn Reports as per HPI and Denies change in libido Neuro Denies syncope Psych Denies change in libido Endo Denies change in libido Physical Exam Const General: cooperative, healthy appearing, comfortable and no acute distress Orientation/consciousness: patient oriented x3 HEENT Face and sinus: Yes normal facial exam Mouth: moist mucous membranes Neck Neck: Yes normal visual inspection, Yes full ROM and Yes trachea midline Chest Chest palpation & inspection: normal inspection of the chest Resp Effort & Inspection: normal respiratory effort, able to speak in complete sentences and no respiratory distress GI Inspection: Yes normal to inspection Back/Spine/Pelvis Cervical Spine: normal cervical lordosis Thoracic/Lumbar Spine: thoracic and lumbar spine normal to inspection Skin General skin exam: no rashes or lesions noted Neuro General: patient oriented x3, gait normal, tone normal and moves all extremities Extrem General: Yes normal to inspection and Yes capillary refill normal Assessment & Plan Assessment & Plan (1) Primary prostate adenocarcinoma: Comment: High-grade disease. External beam radiation with hormones September 2020 Code(s): C61 - Malignant neoplasm of prostate (2) Erectile dysfunction associated with type 2 diabetes mellitus: Code(s): E11.69 - Type 2 diabetes mellitus with other specified complication; N52.1 - Erectile dysfunction due to diseases classified elsewhere Plan Continue six-month follow-up PSA Orders: Orders Prostate Specific Antigen 6 Months C61 - Malignant neoplasm of prostate Patient Instructions: Imaging studies, laboratory and physical exam results were discussed and reviewed in detail. No major barriers to patient understanding were identified. An opportunity to ask questions regarding the treatment plan was provided. All questions were answered. The patient expressed understanding and agreement with the above treatment plan. The patient is aware they should contact our office by phone for worsening of their current condition or the appearance of new urologic symptoms. Compliance is encouraged with any medications and followup testing that is ordered. It is a privilege to participate in the urologic care of your patient. If you have any questions or concerns regarding treatment for the above conditions, or other urologic issues, please do not hesitate to contact me. The office telepho ne contact is [phone]. This note is constructed using voice recognition software. While every effort has been made to ensure accuracy office machinery or equipment installer errors may have been included. Yours sincerely, Dr Stuart Long MD, [facility] - Urology Providers of Expert, Compassionate Care for the Genitourinary System Coding Level of Care Code Est Pt Level 3 (66782) Diagnoses Primary prostate adenocarcinoma C61 Erectile dysfunction associated with type 2 diabetes mellitus E11.69; N52.1
== END 2024-02-15 10:38 | disposition home or self-care (01) ==
PROVIDERS: PCP Internal Medicine; Visit Provider Urology
DX: C61 Malignant neoplasm of prostate (principal); E11.69 Type 2 diabetes mellitus with other specified complication; N52.1 Erectile dysfunction due to diseases classified elsewhere
CPT/HCPCS: 99213

== ENCOUNTER 2024-03-07 10:14 | Outpatient (AMB) | payer OTHER, MEDICAID, SELFPAY ==
[2024-03-07 10:25] VITALS: BP 128/58; PULSE 70; O2SAT 98; BMI 34.6
--- NOTE | 2024-03-07 10:25 | MHC.OFFVIS ---
Vital Signs 03/07/24 10:25 Height 5 ft 11 in Weight 248 lb BMI 34.6 BP 128/58 L Blood Pressure Location Lt brachial Position Sitting Pulse 70 Pulse Source Pulse Oximeter Pulse Oximetry (%) 98 Oxygen Delivery Method Room Air Intake Visit Reasons: conrado Intake Note: pt is here for follow up and states he is feeling good, using cap every night. Pharmaceutical Scientist Required: Yes Pharmaceutical Scientist Name: [id number] Allergies seafood Adverse Reaction (Mild, Verified 03/07/24 10:39) Nausea and Vomiting Medication List - Last Reconciled 03/07/24 by Tamera Simon MD blood sugar diagnostic (FreeStyle Test strips) As directed- test once a day - E11.9 blood-glucose meter (FreeStyle Lite Meter kit) As directed cholecalciferol (vitamin D3) 50 mcg PO DAILY PRN lancets (FreeStyle Lancets) As directed - test once a day - E11.9 lisinopril 10 mg PO DAILY 90 days tamsulosin 0.8 mg (2 x 0.4 mg) PO DAILY Do you need a note to return to daycare/school/sports/work: No HPI HPI conrado: Details: 73 YEARS OLD GENTLEMAN, GROSSLY OBESE WITH A ROUND FACE. COMES FOR FOLLOW-UP AFTER 6 MONTHS. HE CLAIMS THAT HE USES HIS CPAP, WITH FULLFACE MASK EVERY NIGHT AND SLEEPS WELL. HE CLAIMS THAT HE WOULD NOT BE ABLE TO SLEEP WITHOUT THE CPAP. HIS CPAP MACHINE DOES NOT REGISTER THE COMPLIANCE DATA. HE REMAINS GROSSLY OVERWEIGHT BUT IN THE LAST 6 MONTHS HAS LOST ABOUT 7 LB AND HE IS HAPPY ABOUT. HE DENIES ANY COUGH OR WHEEZING. HE HAD INITIAL POLYSOMNOGRAM STUDY IN 2015 AND WAS TREATED WITH CPAP FOR A FEW YEARS THEN HE GAVE UP ON USING THE CPAP. THEN AGAIN HE HAD A SLEEP STUDY IN 2021, WHICH CONFIRMED THAT HE HAD SEVERE OBSTRUCTIVE SLEEP APNEA. SINCE THEN HE IS USING THE CPAP WITH AUTO PAP MODE, AND HAS DONE RELATIVELY WELL. [facility] Medical History COVID-19 Asthma Vitamin D deficiency Somnolence, daytime Hypotestosteronism Tubular adenoma of colon (~08/20/17) Obesity (BMI 30-39.9) Obstructive sleep apnea hypopnea, severe History of autoimmune thrombocytopenia Type 2 diabetes mellitus without complication Benign essential hypertension Primary prostate adenocarcinoma Synovial cyst of sacral region Asthma Surgical History Status post surgery (~1999) Family History Brother Gallbladder cancer Mother Cancer Social History Household Members: Family Housing: House Alcohol intake: current Alcohol intake frequency: holidays/special occasions only Patient Tobacco Use Status: Former Tobacco user Tobacco use type: Cigarette e-Cigarette/Vaping Use: Never Used Second Hand Smoke Exposure: Yes service: No Current occupational status: disabled Cognitive needs: No Hearing needs: No Vision needs: Yes Review of Systems Const All systems reviewed & are unremarkable except as noted in HPI and below Eyes Reports no additional complaints ENT Reports no additional complaints Card Denies chest pain, Denies irregular heart rhythm and Denies leg edema Resp Reports cough (Mild to moderate at this time because of COVID infection) and Denies wheezing GI Reports no additional complaints Reports nocturia Musc Reports no additional complaints Skin/Breast Reports dry skin Neuro Reports no additional complaints Psych Reports no additional complaints Aller/Immun Denies wheezing Physical Exam Vital Signs: Last Vital Signs Pulse 70 03/07/24 10:25 BP 128/58 L 03/07/24 10:25 Pulse Ox 98 03/07/24 10:25 Oxygen Delivery Method Room Air 03/07/24 10:25 BMI result Body Mass Index 34.6 LOOKS GROSSLY OBESE WITH A ROUND FACE AND VERY FAT NECK. Const General: comfortable, no acute distress, alert and awake Orientation/consciousness: patient oriented x3 HEENT Head: Yes normal to inspection General nose exam: No nasal polyps present and No nasal discharge present Face and sinus: Yes sinuses nontender Mouth: oropharynx abnormals (MALLAMPATI CLASS 4) Throat: Yes posterior oropharynx normal Eyes General: appearance normal, both eyes and all related structures Neck Neck: Yes normal visual inspection, Yes no lymphadenopathy, Yes trachea midline, Yes no JVD and Yes other (NECK SIZE 19 INCH) Thyroid: Thyroid normal Chest Chest palpation & inspection: normal inspection of the chest, normal palpation of entire chest wall and no tenderness Resp Effort & Inspection: normal respiratory effort Auscultation: clear to auscultation bilaterally, no crackles, no rales and no wheezes Percussion: percussion normal Cardio Palpation: normal PMI Rate: regular rate Rhythm: regular rhythm Heart sounds: no gallops and no murmurs GI Palpation (GI): Soft to palpation, nontender, No hepatosplenomegaly present, no masses and Other GI palpation findings present (IS GROSSLY OBESE AND PROTUBERANT) Auscultation: normal bowel sounds Back/Spine/Pelvis Thoracic/Lumbar Spine: thoracic and lumbar spine normal to inspection Skin General skin exam: no rashes or lesions noted Neuro General: patient oriented x3 and no focal motor deficits Cranial nerves: Yes CN's II-XII intact bilaterally Extrem General: Yes normal to inspection, Yes no clubbing, cyanosis or edema and Yes no calf tenderness Psych Appearance: grossly normal and well kempt Speech and movement: Normal speech and movement present Results Reviewed Results Reviewed: COMPLIANCE REPORT NOT AVAILABLE HOWEVER HE STATES THAT HE IS USING CPAP EVERY NIGHT MORE THAN 6 HOURS EVERY NIGHT Assessment & Plan Assessment & Plan (1) Obesity (BMI 30-39.9): Comment: LONGSTANDING GROSS OBESITY. PATIENT IS AWARE OF THIS ISSUE AND HE IS TRYING TO LOSE WEIGHT GRADUALLY. NOW IT IS AT A STANDSTILL. Code(s): E66.9 - Obesity, unspecified Category: Medical Plan: COMMENDED FOR LOSING ABOUT 6 LB IN THE LAST 6 MONTHS. ENCOURAGED TO KEEP ON WALKING EVERY DAY AND CUT DOWN THE CALORIES INTAKE (2) Obstructive sleep apnea hypopnea, severe: Comment: PATIENT IS A KNOWN CASE OF SEVERE OBSTRUCTIVE SLEEP APNEA WITH TOTAL SLEEP TIME AHI 85 PATIENT ON CPAP , VERY COMPLIANT AND BENEFITTING . PRESSURE SETTING 6-20 CM WITH FULL FACE MASK. COMPLIANCE DATA COULD NOT BE DOWNLOADED. BUT ACCORDING TO HIM HE IS USING EVERY NIGHT AND IS SLEEPING OK. Code(s): G47.33 - Obstructive sleep apnea (adult) (pediatric) Category: Medical Plan: COMMENDED. FOR GOOD COMPLIANCE ENCOURAGED TO KEEP ON USING MASK EVERY NIGHT AT LEAST FOR 5-6 HOURS PER NIGHT. (3) Asthma: Comment: MILD INTERMITTENT, DOES NOT NEED TO USE ANY BRONCHODILATORS REGULARLY. Code(s): J45.909 - Unspecified asthma, uncomplicated Category: Medical Plan: MAY USE PROAIR 2 PUFFS Q 4-6 HOURS ONLY P.R.N. Medications: Changed From cholecalciferol (vitamin D3) 50 mcg PO DAILY 90 caps 3RF 90 days E55.9 - Vitamin D deficiency, unspecified To cholecalciferol (vitamin D3) 50 mcg PO DAILY PRN E55.9 - Vitamin D deficiency, unspecified Coding Level of Care Code Est Pt Level 3 (29296) Diagnoses Obesity (BMI 30-39.9) E66.9 Obstructive sleep apnea hypopnea, severe G47.33 Asthma J45.909
== END 2024-03-07 10:35 | disposition home or self-care (01) ==
PROVIDERS: PCP Internal Medicine; Visit Provider Internal Medicine
DX: E66.9 Obesity, unspecified (principal); G47.33 Obstructive sleep apnea (adult) (pediatric); J45.909 Unspecified asthma, uncomplicated
CPT/HCPCS: 99213

== ENCOUNTER → 2024-03-07 10:14 | Outpatient (BNVA) | payer OTHER, SELFPAY | PROVIDERS: PCP Internal Medicine; Visit Provider Internal Medicine | DX: J45.909 Unspecified asthma, uncomplicated (principal); G47.33 Obstructive sleep apnea (adult) (pediatric); E66.9 Obesity, unspecified; Z68.34 Body mass index [BMI] 34.0-34.9, adult | CPT/HCPCS: 99212 ==

== ENCOUNTER 2024-03-23 08:59 | Outpatient (REF) | payer OTHER, SELFPAY ==
[2024-03-23 09:15] LABS: MANUAL DIFF FLAG NO
[2024-03-23 09:27] LABS: Basophils Percent Auto 0.7 % (0-2); Eosinophils Absolute Auto 0.2 X10*3/uL (0.0-0.4); Hematocrit 41.8 % (42.0-52.0); Hemoglobin 13.1 g/dl (14.0-18.0); Imm Gran Abs Auto 0.01 X10*3/uL (0.00-0.03); Imm Gran Pct Auto 0.2 % (0.0-0.4); Lymphocytes Absolute Auto 1.4 X10*3/uL (1.2-4.9); Lymphocytes Percent Auto 30.8 % (20-40); Mean Corpuscular HGB Conc 31.3 g/dl (31.0-36.0); Mean Corpuscular Hemoglobin 27.2 pg (27.0-33.0); Mean Corpuscular Volume 86.7 fL (80.0-98.0); Mean Platelet Volume 11.3 fL (9.4-12.4); Monocytes Absolute Auto 0.4 X10*3/uL (0.1-1.2); Neutrophils Absolute Auto 2.4 x10*3/uL (2.0-8.3); Neutrophils Percent Auto 55.3 % (45-73); Platelet Count 153 X10*3/uL (160-400); Red Blood Count 4.82 X10*6/uL (4.60-5.80); White Blood Count 4.4 X10*3/uL (4.8-10.8)
[2024-03-23 09:45] LABS: Estimated Average Glucose 140 mg/dL; Hemoglobin A1c % 6.5 % (<6.0)
[2024-03-23 10:04] LABS: Appearance Urine Clear; Color Urine Yellow; Glucose Urine UA Negative (Negative); Leukocyte Esterase Urine Negative (Negative); Nitrite Urine Negative (Negative); PH 5.5 (5.0-9.0); Urine Blood Negative (Negative); Urine Ketones Negative (Negative); Urine Protein Negative (Neg-Trace)
[2024-03-23 10:12] LABS: Alanine Aminotransferase 15 U/L (0-40); Albumin Level 4.1 g/dL (3.5-5.0); Alkaline Phosphatase 39 U/L (39-117); Anion Gap 13 (12-20); Aspartate Amino Transferase 18 U/L (5-37); Bilirubin Total 0.6 mg/dL (0.0-1.0); Blood Urea Nitrogen 22 mg/dL (9-16); Calcium 9.1 mg/dL (8.4-10.2); Carbon Dioxide 25 mmol/L (22-29); Chloride 107 mmol/L (96-108); Cholesterol 159 mg/dL (<200); Estimated Glomerular Filt Rate 60; Glucose Fasting 139 mg/dL (60-99); HDL Cholesterol 55 mg/dL (>40); LDL Cholesterol Calculated 91 mg/dL (<100); Potassium 4.2 mmol/L (3.3-5.1); Sodium 141 mmol/L (135-145); Total Protein 7.3 g/dL (6.5-8.0); Triglycerides 69 mg/dL (<150)
[2024-03-23 10:17] LABS: TSH reflex Free T4 1.46 uIU/mL (0.32-4.0); Vitamin D 25-OH Total 27.4 ng/mL (>30)
[2024-03-23 10:59] LABS: Creatinine Urine 146.61 mg/dL; Microalbum/Creatinine Ratio Ur 17.7 ug/mg cr (<30)
[2024-03-23 11:23] LABS: Folate 14.3 ng/mL (> or = 4.0); Vitamin B12 466 pg/mL (200-900)
== END 2024-03-23 09:00 | disposition home or self-care (01) ==
LOC: HO.LAB 08:59
PROVIDERS: PCP Internal Medicine; Visit Provider Internal Medicine
DX: I10 Essential (primary) hypertension (principal); E78.00 Pure hypercholesterolemia, unspecified; R30.0 Dysuria; E53.8 Deficiency of other specified B group vitamins; E55.9 Vitamin D deficiency, unspecified
CPT/HCPCS: 36415; 80053; 80061; 81003; 82043; 82306; 82570; 82607; 82746; 83036; 84443; 85025

== ENCOUNTER 2024-03-30 10:22 | Outpatient (AMB) | payer OTHER, MEDICAID, SELFPAY ==
[2024-03-30 10:30] VITALS: BP 132/70; PULSE 80; O2SAT 98; BMI 34.3
--- NOTE | 2024-03-30 10:30 | MHC.PC.OV ---
Vital Signs 03/30/24 10:30 Height 5 ft 11 in Weight 246 lb BMI 34.3 BP 132/70 Blood Pressure Location Lt brachial Position Sitting Pulse 80 Pulse Source Pulse Oximeter Pulse Oximetry (%) 98 Oxygen Delivery Method Room Air Intake Visit Reasons: 4 month f/u, left heel pain for a week Allergies seafood Adverse Reaction (Mild, Verified 03/30/24 11:25) Nausea and Vomiting Medication List - Last Reconciled 03/30/24 by Colton Gagnon MD blood sugar diagnostic (FreeStyle Test strips) As directed- test once a day - E11.9 blood-glucose meter (FreeStyle Lite Meter kit) As directed cholecalciferol (vitamin D3) 50 mcg PO DAILY PRN lancets (FreeStyle Lancets) As directed - test once a day - E11.9 lisinopril 10 mg PO DAILY 90 days tamsulosin 0.8 mg (2 x 0.4 mg) PO DAILY Tobacco use date assessed: 11/29/23 Fall risk assessment: No Falls in past year Last assessed Fall Risk: 03/30/24 Dental Screening Dental Screen Date: 11/29/23 HPI 4 month f/u HPI Details Patient comes in today for his follow up visit States that he has been experiencing increased pain over his left heel area for the past week He does not recall any recent injury or trauma to his left heel States that he feels okay otherwise He denies any headaches or dizziness Denies any chest pains, no shortness of breath No nausea /vomiting, no abdominal pain No change in bowel habits noted Needs his glucometer test strips Rx refilled Had his follow up labs done last week - to discuss his results [facility] Medical History COVID-19 Asthma Vitamin D deficiency Somnolence, daytime Hypotestosteronism Tubular adenoma of colon (~08/20/17) Obesity (BMI 30-39.9) Obstructive sleep apnea hypopnea, severe History of autoimmune thrombocytopenia Type 2 diabetes mellitus without complication Benign essential hypertension Primary prostate adenocarcinoma Synovial cyst of sacral region Asthma Surgical History Status post surgery (~1999) Family History Brother Gallbladder cancer Mother Cancer Social History Household Members: Family Housing: House Alcohol intake: current Alcohol intake frequency: holidays/special occasions only Patient Tobacco Use Status: Former Tobacco user Tobacco use type: Cigarette e-Cigarette/Vaping Use: Never Used Second Hand Smoke Exposure: Yes service: No Current occupational status: disabled Cognitive needs: No Hearing needs: No Vision needs: Yes Questionnaire PHQ-9 Over the last 2 weeks, how often have you been bothered by any of the following problems? 1. Little interest or pleasure in doing things: not at all 2. Feeling down, depressed, or hopeless: not at all 3. Trouble falling or staying asleep, or sleeping too much: not at all 4. Feeling tired or having little energy: not at all 5. Poor appetite or overeating: not at all 6. Feeling bad about yourself - or that you are a failure or have let yourself or your family down: not at all 7. Trouble concentrating on things, such as reading the newspaper or watching television: not at all 8. Moving or speaking so slowly that other people could have noticed. Or the opposite - being so fidgety or restless that you have been moving around a lot more than usual: not at all 9. Thoughts that you would be better off or of hurting yourself in some way: not at all Total score: 0 Depression Screening Interpretation: Negative Depression Screening Done: Yes 33464 - PHQ-9 Billing: Yes Source: Developed by Drs. Buzz Camacho, Sheree Long, Edgar Meyers and colleagues, with an educational toro from [employer]. Thrive Questionnaire Date Thrive assessed: 11/29/23 AUDIT C Alcohol Use Questionnaire (AUDIT-C) 1. How often do you have a drink containing alcohol?: Monthly or less 2. How many drinks containing alcohol do you have on a typical day when you are drinking?: 1 or 2 3. How often do you have six or more drinks on one occasion?: Never Total Score: 1 Score Reviewed/Action Taken: Yes JIMENEZ-7 AMB Questionnaire JIMENEZ-7 Date JIMENEZ - 7 assessed: 11/29/23 Source: Developed by Drs. Buzz Camacho, Sheree Long, Edgar Meyers and colleagues, with an educational toro from [employer]. Review of Systems Const Denies chills, Denies fatigue, Denies fever(s) and Denies headache(s) ENT Denies dysphagia, Denies dizziness, Denies otalgia, Denies headache(s), Denies neck pain, Denies odynophagia and Denies sore throat Card Denies chest pain, Denies palpitations and Denies dyspnea Resp Denies cough, Denies dyspnea and Denies wheezing GI Denies abdominal pain, Denies constipation, Denies dysphagia, Denies heartburn, Denies diarrhea, Denies nausea, Denies odynophagia and Denies vomiting Denies dysuria, Denies nocturia and Denies urinary frequency Musc Denies back pain and Denies neck pain Skin/Breast Denies rash Neuro Denies dizziness and Denies headache(s) Endo Denies fatigue and Denies palpitations Aller/Immun Denies wheezing Physical exam (Primary Care) Vital Signs: Last Vital Signs Pulse 80 03/30/24 10:30 BP 132/70 03/30/24 10:30 Pulse Ox 98 03/30/24 10:30 Oxygen Delivery Method Room Air 03/30/24 10:30 BMI result Body Mass Index 34.3 Tobacco/Smoking Status: Tobacco use Status Tobacco use date assessed 11/29/23 03/30/24 10:31 Patient Tobacco Use Status Former Tobacco user 03/30/24 10:31 Tobacco use type Cigarette 03/30/24 10:31 e-Cigarette/Vaping Use Never Used 03/30/24 10:31 PHQ-9: PHQ-9 Score PHQ-9: Total score 0 03/30/24 11:26 Depression Screening Interpretation: Negative Thrive Assessment: Date of Thrive Assessment Date Thrive assessed 11/29/23 03/30/24 10:31 Const General: no acute distress and alert HENMT Ears: TM's normal bilaterally and EAC's normal Throat: Yes posterior oropharynx normal and Yes tonsils normal (no TP congestion noted) Neck Neck: Yes no lymphadenopathy and Yes supple Resp Auscultation: clear to auscultation bilaterally, no rales and no wheezes Cardio Rate: regular rate Rhythm: regular rhythm Heart sounds: no murmurs GI Palpation (GI): Soft to palpation and nontender Auscultation: normal bowel sounds General: Yes no CVA tenderness Back/Spine/Pelvis Back: no CVA tenderness Skin Rashes: no rashes Extrem General: Yes no clubbing, cyanosis or edema Results Reviewed Results Reviewed: Laboratory Tests 03/23/24 03/23/24 09:14 09:15 WBC 4.4 L Hgb 13.1 L Hct 41.8 L Plt Count 153 L Potassium 4.2 Creatinine 1.20 Estimated GFR 60 Fasting Glucose 139 H Hemoglobin A1c % 6.5 H Calcium 9.1 AST 18 ALT 15 Triglycerides 69 Cholesterol 159 LDL Cholesterol, Calc 91 HDL Cholesterol 55 Vitamin B12 466 25-OH Vitamin D Total 27.4 L TSH 1.46 Ur Specific [place] 1.020 Urine Protein Negative Urine Glucose (UA) Negative Urine Blood Negative Urine Nitrite Negative Ur Leukocyte Esterase Negative Microalb/Creat Ratio 17.7 Assessment and Plan Assessment & Plan (1) Type 2 diabetes mellitus without complication: Code(s): E11.9 - Type 2 diabetes mellitus without complications Qualifiers: Diabetes mellitus watermelon inspector insulin use: without watermelon inspector use Qualified Code(s): E11.9 - Type 2 diabetes mellitus without complications Plan: His HgbA1c was at 6.5% on his labs done last week (was at 6.0% a few months ago) - goal is at least < 7.0%, but preferably < 6.5% Reinforced diabetic diet Patient was taken off Metformin a couple of years ago as his sensor was reportedly showing frequent episodes of hypoglycemia and he has been controlling his diabetes with only diet modification since Follow up with endocrinology as scheduled Will have him recheck his labs in 4 months for follow up Per request, Rx refilled for glucometer test strips (2) Benign essential hypertension: Code(s): I10 - Essential (primary) hypertension Plan: Reinforced low sodium diet - goal is systolic BP of at least 130 to 140 mm or less Continue Lisinopril 10 mg QD Patient again states that his blood pressure readings tend to be a lot lower when he has it checked at home (3) Obstructive sleep apnea hypopnea, severe: Comment: PATIENT IS A KNOWN CASE OF SEVERE OBSTRUCTIVE SLEEP APNEA WITH TOTAL SLEEP TIME AHI 85 PATIENT ON CPAP , VERY COMPLIANT AND BENEFITTING . PRESSURE SETTING 6-20 CM WITH FULL FACE MASK. COMPLIANCE DATA COULD NOT BE DOWNLOADED. BUT ACCORDING TO HIM HE IS USING EVERY NIGHT AND IS SLEEPING OK. Code(s): G47.33 - Obstructive sleep apnea (adult) (pediatric) Plan: Continue using his CPAP device when sleeping at night daily Follow up with Sleep Medicine as scheduled (4) Vitamin D deficiency: Code(s): E55.9 - Vitamin D deficiency, unspecified Plan: Continue Vitamin D3 2000 units QD (5) Prostate cancer: Code(s): C61 - Malignant neoplasm of prostate Plan: Completed external beam radiation with Dr Hill at [facility] (for a total of 8 weeks) back in 2020 Is currently still on GnRH (Eligard 45 mg Q 6 months) - started in 09/2020 Continue Tamsulosin 0.8 mg Q HS Follow up with urology as scheduled (6) Hypotestosteronism: Code(s): E34.9 - Endocrine disorder, unspecified Plan: Serum testosterone level remained very low when last checked last year Follow up with urology as scheduled for this as testosterone replacement Tx needs to be done with caution in patients with prior malignancy (7) History of autoimmune thrombocytopenia: Code(s): Z86.2 - Personal history of diseases of the blood and blood-forming organs and certain disorders involving the immune mechanism Plan: (+) Hx of ITP He is reassured that his platelet count has been stable for a while now with no recent recurrence Will continue to monitor his CBC regularly Has not seen hematology / oncology since 2019 - was advised to just follow up with them as needed as his platelet count has been stable for years now (8) Pain of left heel: Code(s): M79.672 - Pain in left foot Plan: Will send patient for x-rays of the left foot for further evaluation (9) Obesity (BMI 30-39.9): Comment: LONGSTANDING GROSS OBESITY. PATIENT IS AWARE OF THIS ISSUE AND HE IS TRYING TO LOSE WEIGHT GRADUALLY. NOW IT IS AT A STANDSTILL. Code(s): E66.9 - Obesity, unspecified Plan: Reinforced diet/exercise as tolerated/lose weight Plan Follow up in 4 months Orders: Orders UA CC w/rflx Micro + Cult 4 Months R30.0 - Dysuria Vitamin D 25-OH Total 4 Months E55.9 - Vitamin D deficiency, unspecified XR foot LT min 3V 03/30/24 M79.672 - Pain in left foot Complete Blood Count Auto Diff 4 Months D64.9 - Anemia, unspecified Comprehensive [place]. Panel Fast 4 Months E78.00 - Pure hypercholesterolemia, unspecified Lipid Panel 4 Months E78.00 - Pure hypercholesterolemia, unspecified TSH reflex Free T4 4 Months E78.00 - Pure hypercholesterolemia, unspecified Hemoglobin A1c 4 Months E11.9 - Type 2 diabetes mellitus without complications Medications: Refilled blood sugar diagnostic (FreeStyle Test strips) As directed- test once a day - E11.9 100 ea 5RF E11.9 - Type 2 diabetes mellitus without complications Coding Level of Care Code Est Pt Level 4 (73163) Diagnoses Type 2 diabetes mellitus without complication, without long-term current use of insulin E11.9 Diabetes mellitus watermelon inspector insulin use: without watermelon inspector use Benign essential hypertension I10 Obstructive sleep apnea hypopnea, severe G47.33 Vitamin D deficiency E55.9 Prostate cancer C61 Hypotestosteronism E34.9 History of autoimmune thrombocytopenia Z86.2 Pain of left heel M79.672 Obesity (BMI 30-39.9) E66.9
== END 2024-03-30 11:32 | disposition home or self-care (01) ==
PROVIDERS: PCP Internal Medicine; Visit Provider Internal Medicine
DX: E11.9 Type 2 diabetes mellitus without complications (principal); I10 Essential (primary) hypertension; G47.33 Obstructive sleep apnea (adult) (pediatric); E55.9 Vitamin D deficiency, unspecified; C61 Malignant neoplasm of prostate; E34.9 Endocrine disorder, unspecified; Z86.2 Personal history of diseases of the blood and blood-forming organs and certain disorders involving the immune mechanism; M79.672 Pain in left foot; E66.9 Obesity, unspecified
CPT/HCPCS: 99214

== ENCOUNTER 2024-03-30 11:57 | Outpatient (REF) | payer OTHER, SELFPAY ==
--- NOTE | ~2024-03-30 | XR_ITS ---
EXAMINATION: XR FOOT, LEFT CLINICAL INFORMATION: Pain in the left foot. Patient reports pain in the heel. COMPARISON: None available. TECHNIQUE: AP, lateral, and oblique views of the left foot. FINDINGS: There are small posterior and plantar calcaneal spurs. No fracture. Prominent arterial calcification. Remaining bone and joints unremarkable. XR/XR foot LT min 3V IMPRESSION: 1. Calcaneal spurs. 2. Calcific atherosclerotic disease.
== END 2024-03-30 11:58 | disposition home or self-care (01) ==
LOC: HO.XRAY 11:57
PROVIDERS: PCP Internal Medicine; Visit Provider Internal Medicine
DX: M79.672 Pain in left foot (principal)
CPT/HCPCS: 73630

== ENCOUNTER → 2024-07-04 13:59 | Outpatient (RCR) | payer MEDICARE, MEDICAID, SELFPAY ==
[2020-08-26 09:22] VITALS: BP 157/70; PULSE 74; RESP 20; TEMP 36.7; O2SAT 98
[2020-08-26 09:23] VITALS: BMI 36.1
[2020-08-26 09:50] LABS: MANUAL DIFF FLAG NO
--- NOTE | 2020-08-26 09:58 | MHC.HEMONC ---
Patient here today for follow up appt. History and medications updated. Labs drawn and patient seen by .
[2020-08-26 10:40] LABS: Basophils Percent Auto 0.7 % (0-2); Eosinophils Absolute Auto 0.2 X10*3/uL (0.0-0.4); Eosinophils Percent Auto 4.2 % (0-4); Hematocrit 42.7 % (42-52); Hemoglobin 13.4 g/dl (14.0-18.0); Imm Gran Abs Auto 0.02 X10*3/uL (0.00-0.03); Imm Gran Pct Auto 0.4 % (0.0-0.4); Lymphocytes Absolute Auto 1.6 X10*3/uL (1.2-4.9); Lymphocytes Percent Auto 28.8 % (20-40); Mean Corpuscular HGB Conc 31.4 g/dl (31.0-36.0); Mean Corpuscular Hemoglobin 28.9 pg (27.0-33.0); Mean Platelet Volume 11.4 fL (9.4-12.4); Monocytes Absolute Auto 0.5 X10*3/uL (0.1-1.2); Monocytes Percent Auto 8.1 % (2-11); Neutrophils Absolute Auto 3.3 X10*3/uL (2.0-8.3); Neutrophils Percent Auto 57.8 % (45-73); Platelet Count 171 X10*3/uL (160-400); Red Blood Count 4.64 X10*6/uL (4.60-5.80); White Blood Count 5.7 X10*3/uL (4.8-10.8)
--- NOTE | 2020-08-26 11:54 | PM.HEMONCPN ---
Medical Summary - Medical Summary Chief complaint: Follow-up Medical Summary: Admitted to [facility] on [place], when he was noted to be extremely thrombocytopenic on routine blood work. He went to his PCP for a physical, blood work showed platelet count of 10,000. Patient had no symptoms of bruising or bleeding. He was diagnosed with ITP, started on prednisone 1 mg per kilo once a day and discharged home. Interval History Interval history: Patient is here in follow-up. He is doing quite well but reports that he was recently diagnosed with prostate cancer and is being followed by Urology. He denies any bruising or bleeding. Review of Systems - Constitutional Reports as per HPI, Reports no additional constitutional complaints, Denies anorexia, Denies fatigue [facility] Medical History: Medical History (Last Updated 08/26/20 @ 12:10 by Ambika Haywood MD) Asthma Hypertension Pre-diabetes Primary prostate adenocarcinoma Sleep apnea Synovial cyst of sacral region Family History: Family History (Last Updated 08/26/20 @ 09:58 by Peyton Yee RN) Brother Gallbladder cancer Mother Cancer Smoking status: Former smoker Oncology Screenings - ECOG Performance Status ECOG Performance Status: 1 Home Medications and Allergies Home Medications Medication Instructions Recorded Confirmed Type lisinopril 1 tab PO DAILY 08/26/20 08/26/20 History tamsulosin 1 cap PO DAILY 08/26/20 08/26/20 History Allergies Allergy/AdvReac Type Severity Reaction Status Date / Time seafood AdvReac Mild Nausea and Verified 08/26/20 09:33 Vomiting Exam Vital signs: Vital Signs Temp 98.0 F 08/26/20 09:22 Pulse 74 08/26/20 09:22 Resp 20 08/26/20 09:22 BP 157/70 H 08/26/20 09:22 Pulse Ox 98 08/26/20 09:22 Intake & Output 08/25/20 08/26/20 08/26/20 18:59 06:59 18:59 Other: Weight 117.7 kg Weight 117.7 kg Body Mass Index 36.1 - Constitutional Present: no acute distress - Routine HEENT Exam Head: Present: normal inspection Eye: Present: EOMI - Routine Neck Exam Absent: lymphadenopathy - Routine Respiratory Exam Present: CTAB - Routine Cardiovascular Exam Cardiovascular: Present: S1, S2 Data - Labs CBC & Chem 7: 08/26/20 09:48 Labs: Laboratory Results - last 24 hr 08/26/20 09:48 WBC 5.7 RBC 4.64 Hgb 13.4 L Hct 42.7 MCV 92.0 MCH 28.9 MCHC 31.4 RDW 13.0 Plt Count 171 MPV 11.4 Immature Gran % (Auto) 0.4 Neut % (Auto) 57.8 Lymph % (Auto) 28.8 [place] % (Auto) 8.1 Eos % (Auto) 4.2 H Baso % (Auto) 0.7 Lymph # (Auto) 1.6 [place] # (Auto) 0.5 Eos # (Auto) 0.2 Baso # (Auto) 0.0 Abs Immat Gran (auto) 0.02 Absolute Neuts (auto) 3.3 Absolute Nucleated RBC 0.000 Nucleated RBC % (auto) 0.0 Progress Note: A/P (1) Thrombocytopenia Status: Acute Assessment and plan: 1. This is a 67-year-old male with autoimmune thrombocytopenia diagnosed in 2018. Excellent response to prednisone. He is now completely off steroids. He was advised about possibility of ITP recurring. He was educated about signs and symptoms of bruising/bleeding. His blood counts have been stable with resolution of thrombocytopenia for the last 2 years. He will now follow up as needed. - Time Spent With Patient Total time spent is greater than 50% in coordination of care (as documented) at patient's floor/unit and/or counseling patient: 15 - 24 minutes
== END | disposition home or self-care (01) ==
LOC: HO.ONC 08-23 07:58
PROVIDERS: PCP Internal Medicine; Visit Provider Internal Medicine
DX: Z86.2 Personal history of diseases of the blood and blood-forming organs and certain disorders involving the immune mechanism (principal); C61 Malignant neoplasm of prostate
CPT/HCPCS: 36415; 85025; 99212

== ENCOUNTER 2024-07-26 08:10 | Outpatient (REF) | payer MEDICARE, SELFPAY ==
[2024-07-26 08:26] LABS: MANUAL DIFF FLAG NO
[2024-07-26 09:32] LABS: Basophils Percent Auto 0.6 % (0-2); Eosinophils Absolute Auto 0.3 X10*3/uL (0.0-0.4); Eosinophils Percent Auto 5.3 % (0-4); Hematocrit 40.5 % (42.0-52.0); Hemoglobin 12.9 g/dl (14.0-18.0); Imm Gran Abs Auto 0.04 X10*3/uL (0.00-0.03); Imm Gran Pct Auto 0.8 % (0.0-0.4); Lymphocytes Absolute Auto 1.4 X10*3/uL (1.2-4.9); Lymphocytes Percent Auto 26.6 % (20-40); Mean Corpuscular HGB Conc 31.9 g/dl (31.0-36.0); Mean Corpuscular Hemoglobin 28.4 pg (27.0-33.0); Mean Platelet Volume 11.6 fL (9.4-12.4); Monocytes Absolute Auto 0.4 X10*3/uL (0.1-1.2); Monocytes Percent Auto 8.6 % (2-11); Neutrophils Percent Auto 58.1 % (45-73); Platelet Count 159 X10*3/uL (160-400); Red Blood Count 4.55 X10*6/uL (4.60-5.80); Red Cell Distribution Width 14.9 % (11.0-16.0); White Blood Count 5.1 X10*3/uL (4.8-10.8)
[2024-07-26 09:49] LABS: Appearance Urine Clear; Color Urine Yellow; Glucose Urine UA Negative (Negative); Leukocyte Esterase Urine Negative (Negative); Nitrite Urine Negative (Negative); Urine Blood Negative (Negative); Urine Ketones Negative (Negative); Urine Protein Negative (Neg-Trace)
[2024-07-26 10:20] LABS: Alanine Aminotransferase 15 U/L (0-40); Albumin Level 4.1 g/dL (3.5-5.0); Alkaline Phosphatase 46 U/L (39-117); Anion Gap 9 (12-20); Aspartate Amino Transferase 19 U/L (5-37); Bilirubin Total 0.7 mg/dL (0.0-1.0); Blood Urea Nitrogen 25 mg/dL (9-16); Calcium 9.2 mg/dL (8.4-10.2); Carbon Dioxide 27 mmol/L (22-29); Chloride 108 mmol/L (96-108); Cholesterol 152 mg/dL (<200); Estimated Glomerular Filt Rate > 60; Glucose Fasting 149 mg/dL (60-99); HDL Cholesterol 56 mg/dL (>40); LDL Cholesterol Calculated 87 mg/dL (<100); Potassium 3.9 mmol/L (3.3-5.1); Sodium 140 mmol/L (135-145); Total Protein 7.5 g/dL (6.5-8.0); Triglycerides 47 mg/dL (<150)
[2024-07-26 10:43] LABS: TSH reflex Free T4 1.16 uIU/mL (0.32-4.0); Vitamin D 25-OH Total 25.8 ng/mL (>30)
[2024-07-26 11:26] LABS: Estimated Average Glucose 137 mg/dL; Hemoglobin A1C 152.2327 umol/L; Hemoglobin A1c % 6.4 % (<6.0)
== END 2024-07-26 08:11 | disposition home or self-care (01) ==
LOC: HO.LAB 08:10
PROVIDERS: PCP Internal Medicine; Visit Provider Internal Medicine
DX: D64.9 Anemia, unspecified (principal); E78.00 Pure hypercholesterolemia, unspecified; E11.9 Type 2 diabetes mellitus without complications; R30.0 Dysuria; E55.9 Vitamin D deficiency, unspecified
CPT/HCPCS: 36415; 80053; 80061; 81003; 82306; 83036; 84443; 85025

== ENCOUNTER 2024-08-03 09:01 | Outpatient (REF) | payer MEDICARE, MEDICAID, SELFPAY ==
[2024-08-03 10:28] LABS: Prostate Specific Antigen < 0.10 ng/mL (<0.05-4.0)
== END 2024-08-03 09:02 | disposition home or self-care (01) ==
LOC: HO.LAB 09:01
PROVIDERS: PCP Internal Medicine; Visit Provider Urology
DX: E11.9 Type 2 diabetes mellitus without complications (principal); I10 Essential (primary) hypertension; G47.33 Obstructive sleep apnea (adult) (pediatric); E55.9 Vitamin D deficiency, unspecified; E34.9 Endocrine disorder, unspecified; M79.672 Pain in left foot; E66.9 Obesity, unspecified; Z68.34 Body mass index [BMI] 34.0-34.9, adult; Z86.2 Personal history of diseases of the blood and blood-forming organs and certain disorders involving the immune mechanism; C61 Malignant neoplasm of prostate; Z12.5 Encounter for screening for malignant neoplasm of prostate; Z79.899 Other long term (current) drug therapy; Z99.89 Dependence on other enabling machines and devices
CPT/HCPCS: 36415; 84153; 96127; 99212

== ENCOUNTER 2024-08-03 10:07 | Outpatient (AMB) | payer MEDICARE, MEDICAID, SELFPAY ==
[2024-08-03 10:17] VITALS: BP 128/62; PULSE 75; O2SAT 97; BMI 34.2
--- NOTE | 2024-08-03 10:17 | MHC.PC.OV ---
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 Accompanied by: Self / Same As Patient Allergies seafood Adverse Reaction (Mild, Verified 08/04/24 04:43) Nausea and Vomiting Medication List - Last Reconciled 08/04/24 by Colton Gagnon MD blood sugar diagnostic (FreeStyle Test strips) As directed- test once a day - E11.9 blood-glucose meter (FreeStyle Lite Meter kit) As directed cholecalciferol (vitamin D3) 50 mcg PO DAILY PRN lancets (FreeStyle Lancets) As directed - test once a day - E11.9 lisinopril 10 mg PO DAILY 90 days tamsulosin 0.8 mg (2 x 0.4 mg) PO DAILY Tobacco use date assessed: 08/03/24 Fall risk assessment: No Falls in past year Last assessed Fall Risk: 08/03/24 Dental Screening Dental Screen Date: 08/03/24 Did you have a dental visit in the last 12 months?: No Did you have a dental problem in the last 6 months where you did not have access to dental care?: No Was dental information given to patient?: No HPI hyperlipidemia, HTN, DM HPI Details Patient comes in today for his follow up visit States that he feels okay He denies any headaches or dizziness Denies any chest pains, no shortness of breath No nausea /vomiting, no abdominal pain No change in bowel habits noted States that he is still experiencing increased pain over his left foot (heel area) - would like to know how his foot x-rays done a few months ago came out Also needs his glucometer test strips Rx refilled again - states that for unclear reasons, he has been having trouble getting this refilled at his pharmacy He had his follow up labs done last week - to discuss his results [facility] Medical History COVID-19 Asthma Vitamin D deficiency Somnolence, daytime Hypotestosteronism Tubular adenoma of colon (~08/20/17) Obesity (BMI 30-39.9) Obstructive sleep apnea hypopnea, severe History of autoimmune thrombocytopenia Type 2 diabetes mellitus without complication Benign essential hypertension Primary prostate adenocarcinoma Synovial cyst of sacral region Asthma Surgical History Status post surgery (~1999) Family History Brother Gallbladder cancer Mother Cancer Social History Household Members: Family Housing: House Alcohol intake: current Alcohol intake frequency: holidays/special occasions only Patient Tobacco Use Status: Former Tobacco user Tobacco use type: Cigarette e-Cigarette/Vaping Use: Never Used Second Hand Smoke Exposure: Yes service: No Current occupational status: disabled Cognitive needs: No Hearing needs: No Vision needs: Yes Questionnaire PHQ-9 Over the last 2 weeks, how often have you been bothered by any of the following problems? 1. Little interest or pleasure in doing things: not at all 2. Feeling down, depressed, or hopeless: not at all 3. Trouble falling or staying asleep, or sleeping too much: not at all 4. Feeling tired or having little energy: not at all 5. Poor appetite or overeating: not at all 6. Feeling bad about yourself - or that you are a failure or have let yourself or your family down: not at all 7. Trouble concentrating on things, such as reading the newspaper or watching television: not at all 8. Moving or speaking so slowly that other people could have noticed. Or the opposite - being so fidgety or restless that you have been moving around a lot more than usual: not at all 9. Thoughts that you would be better off or of hurting yourself in some way: not at all Total score: 0 Depression Screening Interpretation: Negative Depression Screening Done: Yes [id number] - PHQ-9 Billing: Yes Source: Developed by Drs. Buzz Camacho, Sheree Long, Edgar Meyers and colleagues, with an educational toro from [employer]. Thrive Questionnaire Date Thrive assessed: 08/03/24 I am a: Patient What is your living situation today?: I have a steady place to live Within the past 12 months, did the food you bought not last and you didn't have the money to get more?: Never true Within the past 12 months, did you worry whether your food would run out before you got money to buy more?: Never true Do you have trouble paying for medicines?: No Do you have trouble getting transportation to medical appointments?: No Do you have trouble paying your heating and electricity bill?: No Do you have trouble taking care of your child, family member or friend?: No Do you have trouble with day-to-day activities such as bathing, preparing meals, shopping, managing finances, etc.?: No Are you currently unemployed and looking for a job?: Yes Are you interested in more education?: No Please select the resources that you would like help with: None Currently or been in a relationship where the following occur: No concerns reported THRIVE Score: 0 AUDIT C Alcohol Use Questionnaire (AUDIT-C) 1. How often do you have a drink containing alcohol?: Monthly or less 2. How many drinks containing alcohol do you have on a typical day when you are drinking?: 1 or 2 3. How often do you have six or more drinks on one occasion?: Never Total Score: 1 Score Reviewed/Action Taken: Yes JIMENEZ-7 AMB Questionnaire JIMENEZ-7 Date JIMENEZ - 7 assessed: 08/03/24 Feeling nervous, anxious, or on edge: 0 = Not at all Not being able to stop or control worryin = Not at all Worrying too much about different things: 0 = Not at all Trouble relaxin = Not at all Being so restless that it is hard to sit still: 0 = Not at all Becoming easily annoyed or irritable: 0 = Not at all Feeling afraid as if something awful might happen: 0 = Not at all Total JIMENEZ-7 score (0-4 normal; 5-9 mild; 10-14 moderate; 15-21 severe): 0 Source: Developed by Drs. Buzz Camacho, Sheree Long, Edgar Meyers and colleagues, with an educational toro from [employer]. Review of Systems Const Denies chills, Denies fatigue, Denies fever(s) and Denies headache(s) ENT Denies dysphagia, Denies dizziness, Denies otalgia, Denies headache(s), Denies neck pain, Denies odynophagia and Denies sore throat Card Denies chest pain, Denies palpitations and Denies dyspnea Resp Denies chest congestion, Denies cough and Denies dyspnea GI Denies abdominal pain, Denies constipation, Denies dysphagia, Denies heartburn, Denies diarrhea, Denies nausea, Denies odynophagia and Denies vomiting Denies difficulty urinating, Denies dysuria, Denies nocturia and Denies urinary frequency Musc Denies back pain and Denies neck pain Skin/Breast Denies rash Neuro Denies dizziness and Denies headache(s) Endo Denies fatigue and Denies palpitations Physical exam (Primary Care) Vital Signs: Last Vital Signs Pulse 75 08/03/24 10:17 BP 128/62 08/03/24 10:17 Pulse Ox 97 08/03/24 10:17 Oxygen Delivery Method Room Air 08/03/24 10:17 BMI result Body Mass Index 34.2 Tobacco/Smoking Status: Tobacco use Status Tobacco use date assessed 08/03/24 08/03/24 10:22 Patient Tobacco Use Status Former Tobacco user 08/03/24 10:22 Tobacco use type Cigarette 08/03/24 10:22 e-Cigarette/Vaping Use Never Used 08/03/24 10:22 PHQ-9: PHQ-9 Score PHQ-9: Total score 0 08/03/24 11:19 Depression Screening Interpretation: Negative Thrive Assessment: Date of Thrive Assessment Date Thrive assessed 08/03/24 08/03/24 10:22 Currently or been in a relationship where the following occur: No concerns reported Const General: no acute distress and alert HENMT Ears: TM's normal bilaterally and EAC's normal Throat: Yes posterior oropharynx normal and Yes tonsils normal (no TP congestion noted) Neck Neck: Yes no lymphadenopathy and Yes supple Thyroid: Thyroid normal Resp Auscultation: clear to auscultation bilaterally, no rales and no wheezes Cardio Rate: regular rate Rhythm: regular rhythm Heart sounds: no murmurs GI Palpation (GI): Soft to palpation and nontender Auscultation: normal bowel sounds General: Yes no CVA tenderness Back/Spine/Pelvis Back: no CVA tenderness Thoracic/Lumbar Spine: No lumbar spinal tenderness Skin Rashes: no rashes Extrem General: Yes no clubbing, cyanosis or edema Left lower extremity: foot Details: tenderness Location: of the calcaneus Details: point tenderness Results Reviewed Results Reviewed: Laboratory Tests 07/26/24 07/26/24 08/03/24 08:25 08:52 09:08 WBC 5.1 Hgb 12.9 L Hct 40.5 L Plt Count 159 L Sodium 140 Potassium 3.9 Creatinine 1.08 Estimated GFR > 60 Fasting Glucose 149 H Hemoglobin A1c % 6.4 H Calcium 9.2 AST 19 ALT 15 Triglycerides 47 Cholesterol 152 LDL Cholesterol, Calc 87 HDL Cholesterol 56 Prostate Specific Ag < 0.10 25-OH Vitamin D Total 25.8 L TSH 1.16 Ur Specific Lucas 1.020 Urine Protein Negative Urine Glucose (UA) Negative Urine Blood Negative Urine Nitrite Negative Ur Leukocyte Esterase Negative Assessment and Plan Assessment & Plan (1) Type 2 diabetes mellitus without complication: Code(s): E11.9 - Type 2 diabetes mellitus without complications Qualifiers: Diabetes mellitus adjunct faculty for medical terminology insulin use: without adjunct faculty for medical terminology use Qualified Code(s): E11.9 - Type 2 diabetes mellitus without complications Plan: His HgbA1c was at 6.4% on his labs done last week (was at 6.5% a few months ago) - goal is at least < 7.0%, but preferably < 6.5% Reinforced diabetic diet Patient was taken off Metformin a couple of years ago as his sensor was reportedly showing frequent episodes of hypoglycemia and he has been controlling his diabetes with only diet modification since Follow up with endocrinology as scheduled Per request, Rx refilled again for glucometer test strips Will have him recheck his FBS, HgbA1c and labs in 4 months for follow up (2) Benign essential hypertension: Code(s): I10 - Essential (primary) hypertension Plan: Reinforced low sodium diet - goal is systolic BP of at least 130 to 140 mm or less Continue Lisinopril 10 mg QD Patient again states that his blood pressure readings tend to be a lot lower when he has them checked at home (3) Obstructive sleep apnea hypopnea, severe: Comment: PATIENT IS A KNOWN CASE OF SEVERE OBSTRUCTIVE SLEEP APNEA WITH TOTAL SLEEP TIME AHI 85 PATIENT ON CPAP , VERY COMPLIANT AND BENEFITTING . PRESSURE SETTING 6-20 CM WITH FULL FACE MASK. COMPLIANCE DATA COULD NOT BE DOWNLOADED. BUT ACCORDING TO HIM HE IS USING EVERY NIGHT AND IS SLEEPING OK. Code(s): G47.33 - Obstructive sleep apnea (adult) (pediatric) Plan: Continue using his CPAP device when sleeping at night daily Follow up with Sleep Medicine as scheduled (4) Vitamin D deficiency: Code(s): E55.9 - Vitamin D deficiency, unspecified Plan: Continue Vitamin D3 2000 units QD (5) Prostate cancer: Code(s): C61 - Malignant neoplasm of prostate Plan: He completed external beam radiation with Dr Hill at [facility] (for a total of 8 weeks) back in 2020 He is currently still on GnRH (Eligard 45 mg Q 6 months) - started in 09/2020 Continue Tamsulosin 0.8 mg Q HS Follow up with urology as scheduled (6) Hypotestosteronism: Code(s): E34.9 - Endocrine disorder, unspecified Plan: Serum testosterone level remained very low when last checked last year - is advised that this is primarily due to his hormone suppression therapy with Eligard Follow up with urology as scheduled (7) History of autoimmune thrombocytopenia: Code(s): Z86.2 - Personal history of diseases of the blood and blood-forming organs and certain disorders involving the immune mechanism Plan: (+) Hx of ITP He is reassured that his platelet count has been stable for a while now with no recent recurrence Will continue to monitor his CBC regularly He has not seen hematology / oncology since 2019 - was advised to just follow up with them as needed as his platelet count has been stable for years now (8) Pain of left heel: Code(s): M79.672 - Pain in left foot Plan: X-rays of the left foot done a few months ago revealed (+) large calcaneal spurs on the left heel Will refer him to podiatry for further management (9) Obesity (BMI 30-39.9): Comment: LONGSTANDING GROSS OBESITY. PATIENT IS AWARE OF THIS ISSUE AND HE IS TRYING TO LOSE WEIGHT GRADUALLY. NOW IT IS AT A STANDSTILL. Code(s): E66.9 - Obesity, unspecified Plan: Reinforced diet/exercise as tolerated/lose weight Plan Follow up in 4 months Orders: Orders Comprehensive [place]inco. Panel Fast 4 Months E78.00 - Pure hypercholesterolemia, unspecified UA CC w/rflx Micro + Cult 4 Months R30.0 - Dysuria Complete Blood Count Auto Diff 4 Months D64.9 - Anemia, unspecified Lipid Panel 4 Months E78.00 - Pure hypercholesterolemia, unspecified Hemoglobin A1c 4 Months E11.9 - Type 2 diabetes mellitus without complications TSH reflex Free T4 4 Months E78.00 - Pure hypercholesterolemia, unspecified Microalbumin, Random (w Creat) 4 Months E11.9 - Type 2 diabetes mellitus without complications Vitamin D 25-OH Total 4 Months E55.9 - Vitamin D deficiency, unspecified Referrals Podiatry Referral M79.672 - Pain in left foot Medications: Refilled blood sugar diagnostic (FreeStyle Test strips) As directed- test once a day - E11.9 100 ea 12RF E11.9 - Type 2 diabetes mellitus without complications Coding Level of Care Code Est Pt Level 4 (42957) Diagnoses Type 2 diabetes mellitus without complication, without long-term current use of insulin E11.9 Diabetes mellitus snf insulin use: without snf use Benign essential hypertension I10 Obstructive sleep apnea hypopnea, severe G47.33 Vitamin D deficiency E55.9 Prostate cancer C61 Hypotestosteronism E34.9 History of autoimmune thrombocytopenia Z86.2 Pain of left heel M79.672 Obesity (BMI 30-39.9) E66.9
== END 2024-08-03 11:24 | disposition home or self-care (01) ==
PROVIDERS: PCP Internal Medicine; Visit Provider Internal Medicine
DX: E11.9 Type 2 diabetes mellitus without complications (principal); C61 Malignant neoplasm of prostate; E66.9 Obesity, unspecified; Z68.34 Body mass index [BMI] 34.0-34.9, adult; I10 Essential (primary) hypertension; G47.33 Obstructive sleep apnea (adult) (pediatric); E55.9 Vitamin D deficiency, unspecified; E34.9 Endocrine disorder, unspecified; Z86.2 Personal history of diseases of the blood and blood-forming organs and certain disorders involving the immune mechanism; M79.672 Pain in left foot

== ENCOUNTER 2024-08-16 10:03 | Outpatient (AMB) | payer MEDICARE, MEDICAID, SELFPAY ==
--- NOTE | 2024-08-16 10:03 | MHC.OFFVIS ---
Intake Visit Reasons: 6M PSA(Set) Intake Note: Patient is Present for Telephone Follow Up PSA Urology Med: Tamsulosin Antibiotic Allergy:None Blood Thinner: None Recent PSA: 08/03/2024- PSA: <0.10 Resent A1C: 07/26/2024 A1C: 6.4 Range Manager Required: Yes Range Manager Language: [employer] Major Services: Range Manager Present Information Interpreted: clinical only Accompanied by: Self / Same As Patient Allergies seafood Adverse Reaction (Mild, Verified 08/16/24 10:05) Nausea and Vomiting HPI Comments Details: Fuentes is a pleasant Green[place]ic-speaking male. He is a patient of Dr. Gagnon. He is seen for the following urologic conditions - prostate cancer - erectile dysfunction in setting of diabetes Telemedicine Evaluation 15 min Consultation [employer] Mikayla Video Green[place]ic translation provided by qualified medical records custodian Continues with six-month follow-up out to 10 years Prostate cancer diagnosis September 2020, grade group 4, initial therapy EXBRT with hormones Last GnRH 10/28 Labs PSA 07/30 <0.1 T 91, 11/30 <0.1, 03/30 P <0.1 T 224, 07/31 <0.1 T 269, 01/29 <0.1, 08/01 <0.1 Prostate cancer diagnosed by Dr. Nina September 2020 Initial biopsy - [place] 8 multi core Initial therapy - external beam radiation with [facility] Dr Hill GnRH - 09/27, 03/28, 10/28 Staging - 08/27 bone scan negative, CT scan NAD PSA 07/29 <0.1 T 17, 12/30 <0.1 16, 07/30 <0.1 T 91 Associated symptoms erectile dysfunction managed with generic Viagra Therapeutic plan continue Q 6 month surveillance Erectile dysfunction Background diabetes Initiate daily tadalafil PFSH Medical History COVID-19 Asthma Vitamin D deficiency Somnolence, daytime Hypotestosteronism Tubular adenoma of colon (~08/20/17) Obesity (BMI 30-39.9) Obstructive sleep apnea hypopnea, severe History of autoimmune thrombocytopenia Type 2 diabetes mellitus without complication Benign essential hypertension Primary prostate adenocarcinoma Synovial cyst of sacral region Asthma Surgical History Status post surgery (~1999) Family History Brother Gallbladder cancer Mother Cancer Social History Household Members: Family Housing: House Alcohol intake: current Alcohol intake frequency: holidays/special occasions only Patient Tobacco Use Status: Former Tobacco user Tobacco use type: Cigarette e-Cigarette/Vaping Use: Never Used Second Hand Smoke Exposure: Yes service: No Current occupational status: disabled Cognitive needs: No Hearing needs: No Vision needs: Yes Telehealth Telehealth Telehealth Platform: [employer] Location of provider rendering services: practice address Location of patient: address on file Patient Identification confirmed using: Name, : Yes Telehealth method: video Patient verbally consented to treatment: Yes Patient verbally consented to billing insurance company: Yes Patient informed of any privacy concerns related to visit: Yes Minutes spent on Phone/Video with Pt.: 15 Assessment & Plan Assessment & Plan (1) Primary prostate adenocarcinoma: Comment: High-grade disease. External beam radiation with hormones September 2020 Code(s): C61 - Malignant neoplasm of prostate Category: Medical Plan Six-month follow-up PSA Orders: Orders Prostate Specific Antigen 6 Months C61 - Malignant neoplasm of prostate Patient Instructions: Imaging studies, laboratory and physical exam results were discussed and reviewed in detail. No major barriers to patient understanding were identified. An opportunity to ask questions regarding the treatment plan was provided. All questions were answered. The patient expressed understanding and agreement with the above treatment plan. The patient is aware they should contact our office by phone for worsening of their current condition or the appearance of new urologic symptoms. Compliance is encouraged with any medications and followup testing that is ordered. It is a privilege to participate in the urologic care of your patient. If you have any questions or concerns regarding treatment for the above conditions, or other urologic issues, please do not hesitate to contact me. The office telephone contact is [phone]. This note is constructed using voice recognition software. While every effort has been made to ensure accuracy angle shearer errors may have been included. Yours sincerely, Dr Stuart Long MD, [facility] - Urology Providers of Expert, Compassionate Care for the Genitourinary System Coding Level of Care Code Tele Est Pt Level 3 (81715) Diagnoses Primary prostate adenocarcinoma C61
== END 2024-08-16 11:19 | disposition home or self-care (01) ==
LOC: HO.HUSH 10:03
PROVIDERS: PCP Internal Medicine; Visit Provider Urology
DX: C61 Malignant neoplasm of prostate (principal)
CPT/HCPCS: 99213

== ENCOUNTER → 2024-08-16 10:03 | Outpatient (BNVA) | payer MEDICARE, MEDICAID, SELFPAY | PROVIDERS: PCP Internal Medicine; Visit Provider Urology ==

== ENCOUNTER 2024-09-07 09:32 | Outpatient (AMB) | payer MEDICARE, MEDICAID, SELFPAY ==
--- NOTE | 2024-09-07 09:41 | A.OFFVIS_ITS ---
Vital Signs 09/07/24 09:42 Height 5 ft 11 in Weight 249 lb BMI 34.7 BP 130/50 L Blood Pressure Location Lt brachial Position Sitting Pulse 69 Pulse Source Pulse Oximeter Pulse Oximetry (%) 98 Oxygen Delivery Method Room Air Intake Visit Reasons: conrado Intake Note: pt is here for follow up of CONRADO and states he is feeling very good, just received a new mask in August. Composition Professor Required: Yes Composition Professor Services: Composition Professor Present Composition Professor Name: Key Allergies seafood Adverse Reaction (Mild, Verified 09/07/24 10:03) Nausea and Vomiting Medication List - Last Reconciled 09/07/24 by Tamera Simon MD blood sugar diagnostic ([email or web address] Ultra Test strips) As directed- once daily blood-glucose meter (Updateruch Verio Flex Start kit) As directed- once daily cholecalciferol (vitamin D3) 50 mcg PO DAILY PRN lancets (InnomiNetTouch Delica Plus Lancet) As directed once daily lisinopril 10 mg PO DAILY 90 days tamsulosin 0.8 mg (2 x 0.4 mg) PO DAILY Do you need a note to return to daycare/school/sports/work: No HPI HPI conrado: Details: This 74 years old gentleman grossly obese with diagnosis of obstructive sleep apnea is here for 6 months follow-up. He uses CPAP very regularly and sleeps good. In fact he has difficulty in sleeping if he does not put on the CPAP. His CPAP device does not transmit data for compliance but according to his statement he uses 100% of the time. Breathing is okay except that he sometimes gets short of breath on walking fast. No wheezing or cough. [facility] Medical History COVID-19 Asthma Vitamin D deficiency Somnolence, daytime Hypotestosteronism Tubular adenoma of colon (~08/20/17) Obesity (BMI 30-39.9) Obstructive sleep apnea hypopnea, severe History of autoimmune thrombocytopenia Type 2 diabetes mellitus without complication Benign essential hypertension Primary prostate adenocarcinoma Synovial cyst of sacral region Asthma Surgical History Status post surgery (~1999) Family History Brother Gallbladder cancer Mother Cancer Social History Household Members: Family Housing: House Alcohol intake: current Alcohol intake frequency: holidays/special occasions only Patient Tobacco Use Status: Former Tobacco user Tobacco use type: Cigarette e-Cigarette/Vaping Use: Never Used Second Hand Smoke Exposure: Yes service: No Current occupational status: disabled Cognitive needs: No Hearing needs: No Vision needs: Yes Review of Systems Const All systems reviewed & are unremarkable except as noted in HPI and below Eyes Reports no additional complaints ENT Reports no additional complaints Card Denies chest pain, Denies irregular heart rhythm and Denies leg edema Resp Reports cough (Mild to moderate at this time because of COVID infection) and Denies wheezing GI Reports no additional complaints Reports nocturia Musc Reports no additional complaints Skin/Breast Reports dry skin Neuro Reports no additional complaints Psych Reports no additional complaints Aller/Immun Denies wheezing Physical Exam Vital Signs: Last Vital Signs Pulse 69 09/07/24 09:42 BP 130/50 L 09/07/24 09:42 Pulse Ox 98 09/07/24 09:42 Oxygen Delivery Method Room Air 09/07/24 09:42 BMI result Body Mass Index 34.7 LOOKS GROSSLY OBESE WITH A ROUND FACE AND VERY FAT NECK. Const General: comfortable, no acute distress, alert and awake Orientation/consciousness: patient oriented x3 HEENT Head: Yes normal to inspection General nose exam: No nasal polyps present and No nasal discharge present Face and sinus: Yes sinuses nontender Mouth: oropharynx abnormals (MALLAMPATI CLASS 4) Throat: Yes posterior oropharynx normal Eyes General: appearance normal, both eyes and all related structures Neck Neck: Yes normal visual inspection, Yes no lymphadenopathy, Yes trachea midline, Yes no JVD and Yes other (NECK SIZE 19 INCH) Thyroid: Thyroid normal Chest Chest palpation & inspection: normal inspection of the chest, normal palpation of entire chest wall and no tenderness Resp Effort & Inspection: normal respiratory effort Auscultation: clear to auscultation bilaterally, no crackles, no rales and no wheezes Percussion: percussion normal Cardio Palpation: normal PMI Rate: regular rate Rhythm: regular rhythm Heart sounds: no gallops and no murmurs GI Palpation (GI): Soft to palpation, nontender, No hepatosplenomegaly present, no masses and Other GI palpation findings present (IS GROSSLY OBESE AND PROTUBERANT) Auscultation: normal bowel sounds Back/Spine/Pelvis Thoracic/Lumbar Spine: thoracic and lumbar spine normal to inspection Skin General skin exam: no rashes or lesions noted Neuro General: patient oriented x3 and no focal motor deficits Cranial nerves: Yes CN's II-XII intact bilaterally Extrem General: Yes normal to inspection, Yes no clubbing, cyanosis or edema and Yes no calf tenderness Psych Appearance: grossly normal and well kempt Speech and movement: Normal speech and movement present Results Reviewed Results Reviewed: Compliance report not available.. But according to his verbal statement he is 100% user of the CPAP Assessment & Plan Assessment & Plan (1) Obesity (BMI 30-39.9): Comment: LONGSTANDING GROSS OBESITY. PATIENT IS AWARE OF THIS ISSUE AND HE IS TRYING TO LOSE WEIGHT GRADUALLY. NOW IT IS AT A STANDSTILL. Code(s): E66.9 - Obesity, unspecified Category: Medical Plan: Once again discussed with him about the weight and need to lose. Diet and need to do daily walking is explain. (2) Obstructive sleep apnea hypopnea, severe: Comment: PATIENT IS A KNOWN CASE OF SEVERE OBSTRUCTIVE SLEEP APNEA WITH TOTAL SLEEP TIME AHI 85 PATIENT ON CPAP , VERY COMPLIANT AND BENEFITTING . PRESSURE SETTING 6-20 CM WITH FULL FACE MASK. COMPLIANCE DATA COULD NOT BE DOWNLOADED. BUT ACCORDING TO HIM HE IS USING EVERY NIGHT AND IS SLEEPING OK. Code(s): G47.33 - Obstructive sleep apnea (adult) (pediatric) Category: Medical Plan: Commended for good usage and advised to continue using the CPAP every night (3) Asthma: Comment: MILD INTERMITTENT, DOES NOT NEED TO USE ANY BRONCHODILATORS REGULARLY. Code(s): J45.909 - Unspecified asthma, uncomplicated Category: Medical Plan: Albuterol HFA 1 or 2 puffs Q 6 hours only p.r.n. Coding Level of Care Code Est Pt Level 3 (73167) Diagnoses Obesity (BMI 30-39.9) E66.9 Obstructive sleep apnea hypopnea, severe G47.33 Asthma J45.909
[2024-09-07 09:42] VITALS: BP 130/50; PULSE 69; O2SAT 98; BMI 34.7
== END 2024-09-07 14:20 | disposition home or self-care (01) ==
LOC: HO.HPS 09:32
PROVIDERS: PCP Internal Medicine; Visit Provider Internal Medicine
DX: E66.9 Obesity, unspecified (principal); G47.33 Obstructive sleep apnea (adult) (pediatric); J45.909 Unspecified asthma, uncomplicated
CPT/HCPCS: 99213

== ENCOUNTER → 2024-09-07 09:32 | Outpatient (BNVA) | payer MEDICARE, MEDICAID, SELFPAY | PROVIDERS: PCP Internal Medicine; Visit Provider Internal Medicine | DX: E66.9 Obesity, unspecified (principal); G47.33 Obstructive sleep apnea (adult) (pediatric); J45.909 Unspecified asthma, uncomplicated; Z68.34 Body mass index [BMI] 34.0-34.9, adult; Z99.89 Dependence on other enabling machines and devices | CPT/HCPCS: 99212 ==

== ENCOUNTER 2024-11-30 09:10 | Outpatient (REF) | payer MEDICARE, MEDICAID, SELFPAY ==
[2024-11-30 09:44] LABS: MANUAL DIFF FLAG NO
[2024-11-30 10:25] LABS: Basophils Absolute Auto 0.1 X10*3/uL (0.0-0.2); Basophils Percent Auto 1.4 % (0-2); Eosinophils Absolute Auto 0.2 X10*3/uL (0.0-0.4); Eosinophils Percent Auto 4.3 % (0-4); Hematocrit 44.8 % (42.0-52.0); Hemoglobin 14.2 g/dl (14.0-18.0); Imm Gran Abs Auto 0.02 X10*3/uL (0.00-0.03); Imm Gran Pct Auto 0.4 % (0.0-0.4); Lymphocytes Absolute Auto 1.4 X10*3/uL (1.2-4.9); Mean Corpuscular HGB Conc 31.7 g/dl (31.0-36.0); Mean Corpuscular Hemoglobin 28.6 pg (27.0-33.0); Mean Corpuscular Volume 90.1 fL (80.0-98.0); Mean Platelet Volume 11.4 fL (9.4-12.4); Monocytes Absolute Auto 0.5 X10*3/uL (0.1-1.2); Monocytes Percent Auto 9.1 % (2-11); Neutrophils Absolute Auto 2.9 x10*3/uL (2.0-8.3); Neutrophils Percent Auto 57.8 % (45-73); Platelet Count 158 X10*3/uL (160-400); Red Blood Count 4.97 X10*6/uL (4.60-5.80); Red Cell Distribution Width 13.8 % (11.0-16.0); White Blood Count 5.1 X10*3/uL (4.8-10.8)
[2024-11-30 10:35] LABS: Estimated Average Glucose 148 mg/dL; Hemoglobin A1C 187.1113 umol/L; Hemoglobin A1c % 6.8 % (<6.0); Total Hemoglobin (HGBA1C) 3708.3166 umol/L
[2024-11-30 11:01] LABS: Creatinine Urine 127.02 mg/dL; Microalbum/Creatinine Ratio Ur 29.9 ug/mg cr (<30)
[2024-11-30 11:08] LABS: Appearance Urine Clear; Color Urine Yellow; Glucose Urine UA Negative (Negative); Leukocyte Esterase Urine Negative (Negative); Nitrite Urine Negative (Negative); Urine Blood Negative (Negative); Urine Ketones Negative (Negative); Urine Protein Negative (Neg-Trace)
[2024-11-30 11:13] LABS: Alanine Aminotransferase 21 U/L (0-40); Albumin Level 4.3 g/dL (3.5-5.0); Alkaline Phosphatase 47 U/L (39-117); Anion Gap 9 (12-20); Aspartate Amino Transferase 23 U/L (5-37); Bilirubin Total 0.7 mg/dL (0.0-1.0); Blood Urea Nitrogen 24 mg/dL (9-16); Calcium 9.6 mg/dL (8.4-10.2); Carbon Dioxide 28 mmol/L (22-29); Chloride 106 mmol/L (96-108); Cholesterol 163 mg/dL (<200); Estimated Glomerular Filt Rate > 60; Glucose Fasting 160 mg/dL (60-99); HDL Cholesterol 61 mg/dL (>40); LDL Cholesterol Calculated 89 mg/dL (<100); Potassium 4.2 mmol/L (3.3-5.1); Sodium 139 mmol/L (135-145); TSH reflex Free T4 1.14 uIU/mL (0.32-4.0); Triglycerides 66 mg/dL (<150); Vitamin D 25-OH Total 31.6 ng/mL (>30)
== END 2024-11-30 09:11 | disposition home or self-care (01) ==
LOC: HO.LAB 09:10
PROVIDERS: PCP Internal Medicine; Visit Provider Internal Medicine
DX: E78.00 Pure hypercholesterolemia, unspecified (principal); E55.9 Vitamin D deficiency, unspecified; R30.0 Dysuria; D64.9 Anemia, unspecified; E11.9 Type 2 diabetes mellitus without complications
CPT/HCPCS: 36415; 80053; 80061; 81003; 82043; 82306; 82570; 83036; 84443; 85025

== ENCOUNTER 2025-02-02 09:12 | Outpatient (REF) | payer MEDICARE, SELFPAY ==
[2025-02-02 11:07] LABS: Prostate Specific Antigen < 0.10 ng/mL (<0.05-4.0)
== END 2025-02-02 09:13 | disposition home or self-care (01) ==
LOC: HO.LAB 09:12
PROVIDERS: PCP Internal Medicine; Visit Provider Urology
DX: C61 Malignant neoplasm of prostate (principal); Z12.5 Encounter for screening for malignant neoplasm of prostate
CPT/HCPCS: 36415; 84153

== ENCOUNTER 2025-02-14 09:42 | Outpatient (AMB) | payer MEDICARE, MEDICAID, SELFPAY ==
--- NOTE | 2025-02-14 09:50 | A.OFFVIS_ITS ---
Intake Visit Reasons: 6m/PSA Intake Note: Patient is present for 6M/PSA Urology Medication:TAMSULOSIN Antibiotic Allergy:NONE Blood Thinner:NONE Engineer [employer] Laboratory Required: No Allergies seafood Adverse Reaction (Mild, Verified 02/14/25 09:50) Nausea and Vomiting HPI Comments Details: Fuentes is a pleasant Serbian-speaking male. He is a patient of Dr. Gagnon. He is seen for the following urologic conditions - prostate cancer - erectile dysfunction in setting of diabetes Six-month follow-up Serbian translation provided by qualified anesthesiology medical doctor Lab work ornnie Has seen occasional blood on stool Discussed impact from radiation Continues with six-month follow-up out to 10 years Prostate cancer diagnosis September 2020, grade group 4, initial therapy EXBRT with hormones Last GnRH 10/28 Labs PSA 07/30 <0.1 T 91, 11/30 <0.1, 03/30 P <0.1 T 224, 07/31 <0.1 T 269, 01/29 <0.1, 08/01 <0.1, 01/30 <0.1 Prostate cancer diagnosed by Dr. Nina September 2020 Initial biopsy - Coats 8 multi core Initial therapy - external beam radiation with [facility] GnRH - 09/27, 03/28, 10/28 Staging - 08/27 bone scan negative, CT scan NAD PSA 07/29 <0.1 T 17, 12/30 <0.1 16, 07/30 <0.1 T 91 Associated symptoms erectile dysfunction managed with generic Viagra Therapeutic plan continue Q 6 month surveillance Erectile dysfunction Background diabetes Initiate daily tadalafil PFSH Medical History COVID-19 Asthma Vitamin D deficiency Somnolence, daytime Hypotestosteronism Tubular adenoma of colon (~08/20/17) Obesity (BMI 30-39.9) Obstructive sleep apnea hypopnea, severe History of autoimmune thrombocytopenia Type 2 diabetes mellitus without complication Benign essential hypertension Primary prostate adenocarcinoma Synovial cyst of sacral region Asthma Surgical History Status post surgery (~1999) Family History Brother Gallbladder cancer Mother Cancer Social History Household Members: Family Housing: House Alcohol intake: current Alcohol intake frequency: holidays/special occasions only Patient Tobacco Use Status: Former Tobacco user Tobacco use type: Cigarette e-Cigarette/Vaping Use: Never Used Second Hand Smoke Exposure: Yes service: No Current occupational status: disabled Cognitive needs: No Hearing needs: No Vision needs: Yes Review of Systems Const Denies chills and Denies fever(s) Card Reports no additional complaints and Denies syncope Resp Denies cough GI Denies abdominal pain and Denies heartburn Reports as per HPI and Denies change in libido Neuro Denies syncope Psych Denies change in libido Endo Denies change in libido Physical Exam Const General: cooperative, healthy appearing, comfortable and no acute distress Orientation/consciousness: patient oriented x3 HEENT Face and sinus: Yes normal facial exam Mouth: moist mucous membranes Neck Neck: Yes normal visual inspection, Yes full ROM and Yes trachea midline Chest Chest palpation & inspection: normal inspection of the chest Resp Effort & Inspection: normal respiratory effort, able to speak in complete sentences and no respiratory distress GI Inspection: Yes normal to inspection Back/Spine/Pelvis Cervical Spine: normal cervical lordosis Thoracic/Lumbar Spine: thoracic and lumbar spine normal to inspection Skin General skin exam: no rashes or lesions noted Neuro General: patient oriented x3, gait normal, tone normal and moves all extremities Extrem General: Yes normal to inspection and Yes capillary refill normal Assessment & Plan Assessment & Plan (1) Primary prostate adenocarcinoma: Comment: High-grade disease. External beam radiation with hormones September 2020 Code(s): C61 - Malignant neoplasm of prostate Category: Medical (2) Erectile dysfunction associated with type 2 diabetes mellitus: Code(s): E11.69 - Type 2 diabetes mellitus with other specified complication; N52.1 - Erectile dysfunction due to diseases classified elsewhere Category: Medical Plan Six-month follow-up PSA Orders: Orders Prostate Specific Antigen 6 Months C61 - Malignant neoplasm of prostate Patient Instructions: This note is constructed using voice recognition software. While every effort has been made to ensure accuracy sand shoveler errors may have been included. Imaging studies, laboratory and physical exam results were discussed and reviewed in detail. No major barriers to patient understanding were identified. An opportunity to ask questions regarding the treatment plan was provided. All questions were answered. The patient expressed understanding and agreement with the above treatment plan. The patient is aware they should contact our office by phone for worsening of their current condition or the appearance of new urologic symptoms. Compliance is encouraged with any medications and followup testing that is ordered. It is a privilege to participate in the urologic care of your patient. If you have any questions or concerns regarding treatment for the above conditions, or other urologic issues, please do not hesitate to contact me. The office telephone contact is [phone]. Sincerely, Dr Stuart Long MD, [facility] - Urology Compassionate Specialist Care for the Genitourinary System Coding Level of Care Code Est Pt Level 3 (23410) Complex EM visit Add On G2211 Diagnoses Primary prostate adenocarcinoma C61 Erectile dysfunction associated with type 2 diabetes mellitus E11.69; N52.1
--- OUTSIDE RECORDS SUMMARY | 2025-02-14 10:38 | XMS_ITS | Patient Health Record ---
Author Organization [facility] Address [address] [facility] [place] [address] Care Team Providers Care Boat And Plant Utility Supervisor Name Role Phone Kalin STEELE, Colton Primary Care Provider Mary Torres Unavailable [phone] Ada Han Unavailable [phone] Allergies No Known Allergies Results Component Value Reference Range Notes HEMOGLOBIN A1C (GLYCOHEMOGLO BIN) Reviewed date:12/26/2024 09:13:31 AM Interpretation: Performing Lab: Notes/Report: HEMOGLOBIN A1C % (HH) 6.5 Reason For Referral No Information Medications Medication SIG (Take, Route, Frequency, Duration) Notes Start Date End Date Status Ciclopirox Olamine 0.77 % 1 application Externally Twice a day to skin of feet including between the toes for 30 days Active Lisinopril Active Cholecalciferol Acti ve Tamsulosin HCl Activ e Extra Depth Orthopedic Shoes (1 Pair) with Customized Heat Molded Multidensity Innersoles (3 Pair) as directed Dx: NIDDM/Polyneuropathy (E11.42), Hammertoe Foot Deformity (M20.41,M20.42), Preulcerative Skin Lesion(s) (L85.1 12/26/2024 Active Night Splint AFO - L1930 1 wear at rest for 30 days Active Social History Tobacco Use: Social History Observation Description Date Details (start date - stop date) Never Smoker NA - NA Tobacco Use/Smoking Question Answer Notes Are you a: nonsmoker Additional Findings: Tobacco Non-User Current no n-smoker Alcohol Screen Question Answer Notes Did you have a drink containing alcohol in the p ast year? No Points 0 Interpretation Negative Tobacco use other than smoking: Question Answer Notes Are you an other tobacco user? No Problems Problem Type SNOMED Code ICD Code Onset Dates Problem Status W/U Status Risk Notes Problem Acquired hammer toe of right foot (830085389285308 5) Other hammer toe(s) (acquired), right foot (M20.41) Active confirmed Problem Acquired hammer toe of left foot (304245147149733 3) Other hammer toe(s) (acquired), left foot (M20.42) Active confirmed Problem Plantar fasciitis of left foot (154195520078442 01) Plantar fasciitis of left foot (M72.2) Active confirmed Problem Interstitial myositis (39956586) Interstitial myositis of left foot (M60.172) Active confirmed Vital Signs Blood pressure diastolic 81 mm Hg 12/26/2024 Height 9vq29dh in 12/26/2024 Blood pressure systolic 125 mm Hg 12/26/2024 Weight 255 lbs 12/26/2024 BMI 35.56 kg/m2 12/26/2024 Procedures Procedure Date Ordered Date Performed Result Body Sit e 94901-FEQYYXD NAIL, 6 OR MORE 09/18/2024 N/A Encounters Encounter Location Date Provider Diagnosis [facility] [address] [address] 09/18/2024 Mary Moralezaker Pain in left foot M79.672 ; Plantar fasciitis of left foot M72.2 ; Calcaneal spur, left foot M77.32 ; Interstitial myositis of left foot M60.172 ; Bursitis of left foot M77.52 ; Onychomycosis B35.1 ; Pain in right toe(s) M79.674 and Pain in left toe(s) M79.675 [facility] [address] [address] 12/26/2024 Ada Han Plantar fasciitis of left foot M72.2 ; Other hammer toe(s) (acquired), right foot M20.41 ; Calcaneal spur, left foot M77.32 ; Interstitial myositis of left foot M60.172 ; Bursitis of left foot M77.52 ; Onychomycosis B35.1 ; Tinea pedis of both feet B35.3 ; Other hammer toe(s) (acquired), left foot M20.42 and DM type 2 with diabetic peripheral neuropathy E11.42 [facility] [address] [place] [address] 08/30/2024 Mary Hartmann [facility] [address] [facility] [address] [place] [address] 09/20/2024 [facility] [address] [place] [address] 11/28/2024 Mary Hartmann Assessments Encounter Date Diagnosis (ICD Code) Assessment Notes Treatment Notes Treatment Clinical Notes Section Notes 09/18/2024 Pain in left foot (ICD-10 - M79.672) 09/18/2024 Plantar fasciitis of left foot (ICD-10 - M72.2) Patient Educated with: HEEL CORD STRETCHES.pdf (HEEL CORD STRETCHES.pdf) Patient Educated with: RICE THERAPY.pdf (RICE THERAPY.pdf) 12/26/2024 Other hammer toe(s) (acquired), right foot (ICD-10 - M20.41) Patient Educated with: DIABETIC FOOT CARE INSTRUCTIONS.p df (DIABETIC FOOT CARE INSTRUCTIONS.p df) 12/26/2024 Plantar fasciitis of left foot (ICD-10 - M72.2) 12/26/2024 Calcaneal spur, left foot (ICD-10 - M77.32) 09/18/2024 Calcaneal spur, left foot (ICD-10 - M77.32) 09/18/2024 Interstitial myositis of left foot (ICD-10 - M60.172) 12/26/2024 Interstitial myositis of left foot (ICD-10 - M60.172) 12/26/2024 Bursitis of left foot (ICD-10 - M77.52) 09/18/2024 Bursitis of left foot (ICD-10 - M77.52) 09/18/2024 Onychomycosis (ICD-10 - B35.1) 12/26/2024 Onychomycosis (ICD-10 - B35.1) 12/26/2024 Tinea pedis of both feet (ICD-10 - B35.3) 09/18/2024 Pain in right toe(s) (ICD-10 - M79.674) 09/18/2024 Pain in left toe(s) (ICD-10 - M79.675) 12/26/2024 Other hammer toe(s) (acquired), left foot (ICD-10 - M20.42) 12/26/2024 DM type 2 with diabetic peripheral neuropathy (ICD-10 - E11.42) Plan Of Treatment Pending Test Test Name Order Date X ray : Foot, left 3V 09/18/2024 67519-HVNVPLT NAIL, 6 OR MORE 09/18/2024 Next Appt Details Provider Name:Mary solis, 04/11/2025 10:15:00 AM, [address] [place] [address], [phone], Insurance Providers Payer Name Payer Address Payer Phone Subscriber Number Group Number Insured Name Patient Relationship to Insured Coverage Start Date Coverage End Date [employer] Medicare [id number] [address] [address] [place] [address] [id number] Fuentes Malik Self - patient is the insured Medical (General) History Medical History History ICD Code Cancer covid-19 High Blood Pressure
--- OUTSIDE RECORDS SUMMARY | 2025-02-14 10:38 | XMS_ITS ---
Author Organization [facility] Address [address] [place] [address] Care Team Providers Care Sales Demonstrator Name Role Phone Colton Gagnon MD Primary Care Provider Unava ilMary Osman Unavailable [phone] Brown Encounters Encounter Location Date Provider Diagnosis [address] [address] 12/20/2024 Mary Hartmann Plan Of Treatment Next Appt Details Provider Name:Mary solis, 04/11/2025 10:15:00 AM, [address] [place] [address], [phone], Progress Notes * MINGOFuentes BurdickDOB:1 (74 yo M)Acc No.[id number]:12/20/2024 Progress Note Patient:?Jonathon MARTINEZ Provider:?Mary Hartmann DPM :1950???Age:74 Y???Sex:Male Jose e:12/20/2024 Address: [id number] Pcp:Colton Gagnon MD Subjective: * Chief Complaints: * ???1. Dr Brown. * Medical History:? Objective: * Vitals:? Assessment: Plan: * Treatment: * Images: * The named appointment provid er may or may not be the originator of this progress note, and it is not deemed complete until electronically signed by the appointment provider. Sign off status: Pending * Provider:?Mary Hartmann DPM Date:?0 12/20/2024 Generated for Simran belle/Santa/Sonny on:?02/14/2025 10:38 AM EDT
--- OUTSIDE RECORDS SUMMARY | 2025-02-14 10:38 | XMS_ITS ---
Author Organization [facility] Address [address] [place] [address] Care Team Providers Care Chiropractic Neurologist Name Role Phone Kalin STEELE [place] Primary Care Provider Unava ilMary Osman Unavailable [phone] REASON FOR VISIT Balance Encounters Encounter Location Date Provider Diagnosis [address] [address] 11/28/2024 Mary Hartmann Plan Of Treatment Next Appt Details Provider Name:Mary solis, 04/11/2025 10:15:00 AM, [address] [place] [address], [phone], Progress Notes * Fuentes MARTINEZDOB:1 (74 yo M)Acc No.[id number]:11/28/2024 Patient:?Jonathon MARTINEZ :1950???Age:74 Y???Sex:Male Address:[address] [place] [address] * true * Date:? Generated for Printi ng/Faxing/eTransmitting on:?02/14/2025 10:38 AM EDT
== END 2025-02-14 10:56 | disposition home or self-care (01) ==
LOC: HO.HUSH 09:43
PROVIDERS: PCP Internal Medicine; Visit Provider Urology
DX: C61 Malignant neoplasm of prostate (principal); E11.69 Type 2 diabetes mellitus with other specified complication; N52.1 Erectile dysfunction due to diseases classified elsewhere
CPT/HCPCS: 99213; G2211

== ENCOUNTER → 2025-02-14 09:42 | Outpatient (BNVA) | payer MEDICARE, MEDICAID, SELFPAY | PROVIDERS: PCP Internal Medicine; Visit Provider Urology | DX: C61 Malignant neoplasm of prostate (principal); E11.69 Type 2 diabetes mellitus with other specified complication; N52.1 Erectile dysfunction due to diseases classified elsewhere | CPT/HCPCS: 99212 ==

== ENCOUNTER 2025-02-22 09:42 | Outpatient (AMB) | payer MEDICARE, MEDICAID, SELFPAY ==
[2025-02-22 09:46] VITALS: BP 112/60; PULSE 72; O2SAT 99; BMI 35.4
--- NOTE | 2025-02-22 09:46 | A.OFFVIS_ITS ---
Vital Signs 02/22/25 09:46 Height 5 ft 11 in Weight 254 lb 2 oz BMI 35.4 BP 112/60 Blood Pressure Location Lt brachial Position Sitting Pulse 72 Pulse Source Doppler Pulse Oximetry (%) 99 Oxygen Delivery Method Room Air Intake Visit Reasons: Obstructive sleep apnea Intake Note: Patient is here for a follow up on ELLEN, patient is using his CPAP machine. Patient requesting a rescue inhaler for wheezing at night. Sustainable Communities Designer Required: Yes Sustainable Communities Designer Name: Karey Perera Juan J Allergies seafood Adverse Reaction (Mild, Verified 02/22/25 10:18) Nausea and Vomiting Medication List - Last Reconciled 02/22/25 by Tamera Simon MD blood sugar diagnostic (myfab5uch Ultra Test strips) As directed- once daily blood-glucose meter (myfab5uch Verio Flex Start kit) As directed- once daily cholecalciferol (vitamin D3) 50 mcg PO DAILY PRN lancets (PerfectSearchTouch Delica Plus Lancet) As directed once daily lisinopril 10 mg PO DAILY 90 days tamsulosin 0.8 mg (2 x 0.4 mg) PO DAILY Do you need a note to return to daycare/school/sports/work: No HPI HPI Obstructive sleep apnea: Details: This 74 years old gentleman is grossly obese and has obstructive sleep apnea. He uses CPAP every night with good results. CPAP machine does not transmit the compliance data , usually needs to send the chip to DME. Supplier . Which he has not done this time. His weight has not changed much. He has mild bronchial asthma which ex up at night and he feels like using albuterol before putting on the CPAP mask. [facility] Medical History COVID-19 Asthma Vitamin D deficiency Somnolence, daytime Hypotestosteronism Tubular adenoma of colon (~08/20/17) Obesity (BMI 30-39.9) Obstructive sleep apnea hypopnea, severe History of autoimmune thrombocytopenia Type 2 diabetes mellitus without complication Benign essential hypertension Primary prostate adenocarcinoma Synovial cyst of sacral region Asthma Surgical History Status post surgery (~1999) Family History Brother Gallbladder cancer Mother Cancer Social History Household Members: Family Housing: House Alcohol intake: current Alcohol intake frequency: holidays/special occasions only Patient Tobacco Use Status: Former Tobacco user Tobacco use type: Cigarette e-Cigarette/Vaping Use: Never Used Second Hand Smoke Exposure: Yes service: No Current occupational status: disabled Cognitive needs: No Hearing needs: No Vision needs: Yes Review of Systems Const All systems reviewed & are unremarkable except as noted in HPI and below Eyes Reports no additional complaints ENT Reports no additional complaints Card Denies chest pain, Denies irregular heart rhythm and Denies leg edema Resp Reports cough (Mild to moderate at this time because of COVID infection) and Denies wheezing GI Reports no additional complaints Reports nocturia Musc Reports no additional complaints Skin/Breast Reports dry skin Neuro Reports no additional complaints Psych Reports no additional complaints Aller/Immun Denies wheezing Physical Exam Vital Signs: Last Vital Signs Pulse 72 02/22/25 09:46 BP 112/60 02/22/25 09:46 Pulse Ox 99 02/22/25 09:46 Oxygen Delivery Method Room Air 02/22/25 09:46 BMI result Body Mass Index 35.4 LOOKS GROSSLY OBESE WITH A ROUND FACE AND VERY FAT NECK. Const General: comfortable, no acute distress, alert and awake Orientation/consciousness: patient oriented x3 HEENT Head: Yes normal to inspection General nose exam: No nasal polyps present and No nasal discharge present Face and sinus: Yes sinuses nontender Mouth: oropharynx abnormals (MALLAMPATI CLASS 4) Throat: Yes posterior oropharynx normal Eyes General: appearance normal, both eyes and all related structures Neck Neck: Yes normal visual inspection, Yes no lymphadenopathy, Yes trachea midline, Yes no JVD and Yes other (NECK SIZE 19 INCH) Thyroid: Thyroid normal Chest Chest palpation & inspection: normal inspection of the chest, normal palpation of entire chest wall and no tenderness Resp Effort & Inspection: normal respiratory effort Auscultation: clear to auscultation bilaterally, no crackles, no rales and no wheezes Percussion: percussion normal Cardio Palpation: normal PMI Rate: regular rate Rhythm: regular rhythm Heart sounds: no gallops and no murmurs GI Palpation (GI): Soft to palpation, nontender, No hepatosplenomegaly present, no masses and Other GI palpation findings present (IS GROSSLY OBESE AND PROTUBERANT) Auscultation: normal bowel sounds Back/Spine/Pelvis Thoracic/Lumbar Spine: thoracic and lumbar spine normal to inspection Skin General skin exam: no rashes or lesions noted Neuro General: patient oriented x3 and no focal motor deficits Cranial nerves: Yes CN's II-XII intact bilaterally Extrem General: Yes normal to inspection, Yes no clubbing, cyanosis or edema and Yes no calf tenderness Psych Appearance: grossly normal and well kempt Speech and movement: Normal speech and movement present Assessment & Plan Assessment & Plan (1) Obesity (BMI 30-39.9): Comment: LONGSTANDING GROSS OBESITY. PATIENT IS AWARE OF THIS ISSUE AND HE IS TRYING TO LOSE WEIGHT GRADUALLY. NOW IT IS AT A STANDSTILL. Code(s): E66.9 - Obesity, unspecified Category: Medical Plan: Again stressed that he should limit calories intake, try to walk more every day. And try to lose some weight. (2) Obstructive sleep apnea hypopnea, severe: Comment: PATIENT IS A KNOWN CASE OF SEVERE OBSTRUCTIVE SLEEP APNEA WITH TOTAL SLEEP TIME AHI 85 PATIENT ON CPAP , VERY COMPLIANT AND BENEFITTING . PRESSURE SETTING 6-20 CM WITH FULL FACE MASK. COMPLIANCE DATA COULD NOT BE DOWNLOADED. BUT ACCORDING TO HIM HE IS USING EVERY NIGHT AND IS SLEEPING OK. Code(s): G47.33 - Obstructive sleep apnea (adult) (pediatric) Category: Medical Plan: Advised to continue using CPAP every night at least for 6 hours every night. Make sure the straps are tight enough to avoid any air leak. (3) Asthma: Comment: MILD INTERMITTENT, DOES NOT NEED TO USE ANY BRONCHODILATORS REGULARLY, BUT LATELY HE IS GETTING SOME WHEEZING EPISODES AT NIGHT. Code(s): J45.909 - Unspecified asthma, uncomplicated Category: Medical Plan: ADVISED TO USE ALBUTEROL 2 PUFFS BEFORE PUTTING ON THE CPAP MASK AT NIGHT Medications: New albuterol sulfate 90 mcg/actuation 2 puffs inhalation Q4-6H 30 days PRN 8.5 g azul 4RF shortness of breath or wheezing Coding Level of Care Code Est Pt Level 3 (41684) Diagnoses Obesity (BMI 30-39.9) E66.9 Obstructive sleep apnea hypopnea, severe G47.33 Asthma J45.909
--- OUTSIDE RECORDS SUMMARY | 2025-02-22 11:06 | XMS_ITS ---
Author Organization [facility] Address [address] [place] [address] Care Team Providers Care Manager Printing Name Role Phone Kalin STEELE [place] Primary Care Provider Unava ilMary Osman Unavailable [phone] REASON FOR VISIT Balance Encounters Encounter Location Date Provider Diagnosis [address] [address] 11/28/2024 Mary Hartmann Plan Of Treatment Next Appt Details Provider Name:Mary solis, 04/11/2025 10:15:00 AM, [address] [place] [address], [phone], Progress Notes * Fuentes MARTINEZDOB:1 (74 yo M)Acc No.[id number]:11/28/2024 Patient:?Jonathon MARTINEZ :1950???Age:74 Y???Sex:Male Address:[address] [facility] [place] [address] * true * Date:? Generated for Printi ng/Faxing/eTransmitting on:?02/22/2025 11:06 AM EDT
== END 2025-02-22 10:19 | disposition home or self-care (01) ==
LOC: HO.HPS 09:42
PROVIDERS: PCP Internal Medicine; Visit Provider Internal Medicine
DX: E66.9 Obesity, unspecified (principal); G47.33 Obstructive sleep apnea (adult) (pediatric); J45.909 Unspecified asthma, uncomplicated
CPT/HCPCS: 99213

== ENCOUNTER → 2025-02-22 09:42 | Outpatient (BNVA) | payer MEDICARE, MEDICAID, SELFPAY | PROVIDERS: PCP Internal Medicine; Visit Provider Internal Medicine | DX: G47.33 Obstructive sleep apnea (adult) (pediatric) (principal); E66.9 Obesity, unspecified; J45.909 Unspecified asthma, uncomplicated; Z68.35 Body mass index [BMI] 35.0-35.9, adult; Z99.89 Dependence on other enabling machines and devices | CPT/HCPCS: 99212 ==

== ENCOUNTER 2025-03-09 15:30 | Outpatient (AMB) | payer MEDICARE, MEDICAID, SELFPAY ==
--- OUTSIDE RECORDS SUMMARY | 2025-03-09 15:32 | XMS_ITS ---
Author Organization [facility] Address [address] [place] [address] Care Team Providers Care Maintenance Person Name Role Phone Kalin STELEE [place] Primary Care Provider Unava ilMary Osman Unavailable [phone] REASON FOR VISIT Balance Encounters Encounter Location Date Provider Diagnosis [address] [address] 11/28/2024 Mary Hartmann Plan Of Treatment Next Appt Details Provider Name:Mary solis, 04/11/2025 10:15:00 AM, [address] [place] [address], [phone], Progress Notes * Fuentes MARTINEZDOB:1 (74 yo M)Acc No.[id number]:11/28/2024 Patient:?Jonathon MARTINEZ :1950???Age:74 Y???Sex:Male Address:[address] [place] [address] * true * Date:? Generated for Printi ng/Faxing/eTransmitting on:?03/09/2025 03:32 PM EDT
--- OUTSIDE RECORDS SUMMARY | 2025-03-09 15:32 | XMS_ITS ---
Author Organization [facility] Address [address] [place] [address] Care Team Providers Care Surgical Nurse Practitioner Name Role Phone Colton Gagnon MD Primary Care Provider Unava ilMary Osman Unavailable [phone] Brown Encounters Encounter Location Date Provider Diagnosis [address] [address] 12/20/2024 Mary Hartmann Plan Of Treatment Next Appt Details Provider Name:Mary solis, 04/11/2025 10:15:00 AM, [address] [place] [address], [address], Progress Notes * MICHELLEFuentesDOB:1 (74 yo M)Acc No.[id number]:12/20/2024 Progress Note Patient:?Jonathon MARTINEZ Provider:?Mary Hartmann DPM :1950???Age:74 Y???Sex:Male Jose e:12/20/2024 Address: [place] Pcp:Colton Gagnon MD Subjective: * Chief Complaints: [...] DPM Date:?0 12/20/2024 Generated for Simran belle/Santa/Sonny on:?03/09/2025 03:32 PM EDT
--- OUTSIDE RECORDS SUMMARY | 2025-03-09 15:32 | XMS_ITS | Patient Health Record ---
Author Organization [facility] Address [address] [facility] [place] [address] Care Team Providers Care Manager Payer Name Role Phone Kalin STEELE, Colton Primary Care Provider Mary Torres Unavailable [phone] Ada Han Unavailable [phone] Allergies No Known Allergies Results Component Value [...] Problem Status W/U Status Risk Notes Problem Other hammer toe(s) (acquired), right foot (M20.41) Active confirmed Problem Acquired hammer toe of left foot (746067881896586 3) Other hammer toe(s) (acquired), left foot (M20.42) Active confirmed Problem Plantar fasciitis of left foot (556606443355987 01) Plantar fasciitis of left foot (M72.2) Active confirmed Problem Interstitial myositis (90873618) Interstitial myositis of left foot (M60.172) Active confirmed Vital Signs Blood pressure diastolic 81 mm Hg 12/26/2024 Height 4zc01ip in 12/26/2024 Blood pressure systolic 125 mm Hg 12/26/2024 Weight 255 lbs 12/26/2024 BMI 35.56 kg/m2 12/26/2024 Procedures Procedure Date Ordered Date Performed Result Body Sit e 31247-QFLXVSU NAIL, 6 OR MORE 09/18/2024 N/A Encounters Encounter Location Date Provider Diagnosis [facility] [address] [address] 09/18/2024 Mary Hartmann Pain in left foot M79.672 ; Plantar fasciitis of left foot M72.2 ; Calcaneal spur, left foot M77.32 ; Interstitial myositis of left foot M60.172 ; Bursitis of left foot M77.52 ; Onychomycosis B35.1 ; Pain in right toe(s) M79.674 and Pain in left toe(s) M79.[address] [facility] [address] [address] 12/26/2024 Ada Han Plantar fasciitis of left foot M72.2 ; Other hammer toe(s) (acquired), right foot M20.41 ; Calcaneal spur, left foot M77.32 ; Interstitial myositis of left foot M60.172 ; Bursitis of left foot M77.52 ; Onychomycosis B35.1 ; Tinea pedis of both feet B35.3 ; Other hammer toe(s) (acquired), left foot M20.42 and DM type 2 with diabetic peripheral neuropathy E11.[address] [facility] [address] [address] 08/30/2024 [facility] [address] [facility] [address] [place] [address] 09/20/2024 Mary Hartmann [facility] [address] [address] 11/28/2024 Mary Hartmann Assessments Encounter Date Diagnosis [...] X ray : Foot, left 3V 09/18/2024 83085-ADZVOWA NAIL, 6 OR MORE 09/18/2024 Next Appt Details Provider Name:Maryedna solis, 04/11/2025 10:15:00 AM, [address] [facility], [place], [address], Insurance Providers Payer Name Payer Address Payer Phone Subscriber Number Group Number Insured Name Patient Relationship to Insured Coverage Start Date Coverage End Date [employer] Medicare [id number] [address] [address] [place] [address] [id number] Fuentes Malik Self - patient is the insured Medical (General) History Medical History History ICD Code Cancer covid-19 High Blood Pressure
--- NOTE | 2025-03-09 15:56 | A.OFFPC_ITS ---
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: No Accompanied by: Self / Same As Patient Allergies seafood Adverse Reaction (Mild, Verified 03/09/25 16:26) Nausea and Vomiting Medication List - Last Reconciled 03/09/25 by Colton Gagnon MD albuterol sulfate 90 mcg/actuation 2 puffs inhalation Q4-6H PRN 30 days blood sugar diagnostic (Labotec Ultra Test strips) As directed- once daily blood-glucose meter (Labotec Verio Flex Start kit) As directed- once daily cholecalciferol (vitamin D3) 50 mcg PO DAILY PRN lancets (CureDMuch Delica Plus Lancet) As directed once daily lisinopril 10 mg PO DAILY 90 days tamsulosin 0.8 mg (2 x 0.4 mg) PO DAILY Tobacco use date assessed: 03/09/25 Fall risk assessment: No Falls in past year Last assessed Fall Risk: 03/09/25 Dental Screening Dental Screen Date: 03/09/25 Did you have a dental visit in the last 12 months?: No Did you have a dental problem in the last 6 months where you did not have access to dental care?: No Was dental information given to patient?: No HPI 4 Months f/u stephane from 12/14/24 HPI Details Patient comes in today for his follow up visit - he has not been back s safia July 2024 as he missed his appointment earlier this year States that he feels okay He denies any headaches or dizziness Denies any chest pains, no SOB No nausea/vomiting, no abdominal pain No change in bowel habits noted He had some follow up labs done back in November 2024 but has no other labs done more recently [facility] Medical History COVID-19 Asthma Vitamin D deficiency Somnolence, daytime Hypotestosteronism Tubular adenoma of colon (~08/20/17) Obesity (BMI 30-39.9) Obstructive sleep apnea hypopnea, severe History of autoimmune thrombocytopenia Type 2 diabetes mellitus without complication Benign essential hypertension Primary prostate adenocarcinoma Synovial cyst of sacral region Asthma Surgical History Status post surgery (~1999) Family History Brother Gallbladder cancer Mother Cancer Social History Household Members: Family Housing: House Alcohol intake: current Alcohol intake frequency: holidays/special occasions only Patient Tobacco Use Status: Former Tobacco user Tobacco use type: Cigarette e-Cigarette/Vaping Use: Never Used Second Hand Smoke Exposure: Yes service: No Current occupational status: disabled Current occupational exposures/hazards: No Cognitive needs: No Hearing needs: No Vision needs: Yes Questionnaire PHQ-9 Over the last 2 weeks, how often have you been bothered by any of the following problems? 1. Little interest or pleasure in doing things: not at all 2. Feeling down, depressed, or hopeless: not at all 3. Trouble falling or staying asleep, or sleeping too much: not at all 4. Feeling tired or having little energy: not at all 5. Poor appetite or overeating: not at all 6. Feeling bad about yourself - or that you are a failure or have let yourself or your family down: not at all 7. Trouble concentrating on things, such as reading the newspaper or watching television: not at all 8. Moving or speaking so slowly that other people could have noticed. Or the opposite - being so fidgety or restless that you have been moving around a lot more than usual: not at all 9. Thoughts that you would be better off or of hurting yourself in some way: not at all Total score: 0 Depression Screening Interpretation: Negative Depression Screening Done: Yes 16048 - PHQ-9 Billing: Yes Source: Developed by Drs. Buzz Camacho, Sheree Long, Edgar Meyers and colleagues, with an educational toro from [employer]. Thrive Questionnaire Date Thrive assessed: 03/09/25 I am a: Patient What is your living situation today?: I have a steady place to live Within the past 12 months, did the food you bought not last and you didn't have the money to get more?: Never true Within the past 12 months, did you worry whether your food would run out before you got money to buy more?: Often true Do you have trouble paying for medicines?: No Do you have trouble getting transportation to medical appointments?: No Do you have trouble paying your heating and electricity bill?: No Do you have trouble taking care of your child, family member or friend?: No Do you have trouble with day-to-day activities such as bathing, preparing meals, shopping, managing finances, etc.?: No Are you currently unemployed and looking for a job?: No Are you interested in more education?: No Please select the resources that you would like help with: None Currently or been in a relationship where the following occur: No concerns reported THRIVE Score: 1 AUDIT C Alcohol Use Questionnaire (AUDIT-C) 1. How often do you have a drink containing alcohol?: Never 3. How often do you have six or more drinks on one occasion?: Never Total Score: 0 Score Reviewed/Action Taken: Yes JIMENEZ-7 AMB Questionnaire JIMENEZ-7 Date JIMENEZ - 7 assessed: 03/09/25 Feeling nervous, anxious, or on edge: 0 = Not at all Not being able to stop or control worryin = Not at all Worrying too much about different things: 0 = Not at all Trouble relaxin = Not at all Being so restless that it is hard to sit still: 0 = Not at all Becoming easily annoyed or irritable: 0 = Not at all Feeling afraid as if something awful might happen: 0 = Not at all Total JIMENEZ-7 score (0-4 normal; 5-9 mild; 10-14 moderate; 15-21 severe): 0 Source: Developed by Drs. Buzz Camacho, Sheree Long, Edgar Meyers and colleagues, with an educational toro from [employer]. Review of Systems Const Denies chills, Denies fatigue, Denies fever(s) and Denies headache(s) ENT Denies dysphagia, Denies dizziness, Denies otalgia, Denies headache(s), Denies neck pain, Denies odynophagia and Denies sore throat Card Denies chest pain, Denies palpitations and Denies dyspnea Resp Denies chest congestion, Denies cough and Denies dyspnea GI Denies abdominal pain, Denies constipation, Denies dysphagia, Denies heartburn, Denies diarrhea, Denies nausea, Denies odynophagia and Denies vomiting Denies difficulty urinating, Denies dysuria, Denies nocturia and Denies urinary frequency Musc Denies back pain and Denies neck pain Skin/Breast Denies rash Neuro Denies dizziness and Denies headache(s) Endo Denies fatigue and Denies palpitations Physical exam (Primary Care) Vital Signs: Last Vital Signs Pulse 71 03/09/25 15:57 BP 128/62 03/09/25 15:57 Pulse Ox 94 03/09/25 15:57 Oxygen Delivery Method Room Air 03/09/25 15:57 BMI result Body Mass Index 36.0 Tobacco/Smoking Status: Tobacco use Status Tobacco use date assessed 03/09/25 03/09/25 16:00 Patient Tobacco Use Status Former Tobacco user 03/09/25 16:00 Tobacco use type Cigarette 03/09/25 16:00 e-Cigarette/Vaping Use Never Used 03/09/25 16:00 PHQ-9: PHQ-9 Score PHQ-9: Total score 0 03/09/25 16:40 Depression Screening Interpretation: Negative Thrive Assessment: Date of Thrive Assessment Date Thrive assessed 03/09/25 03/09/25 16:00 Currently or been in a relationship where the following occur: No concerns reported Const General: no acute distress and alert HENMT Ears: TM's normal bilaterally and EAC's normal Throat: Yes posterior oropharynx normal and Yes tonsils normal (no TP congestion noted) Neck Neck: Yes supple and No lymphadenopathy Thyroid: Thyroid normal Resp Auscultation: clear to auscultation bilaterally, no rales and no wheezes Cardio Rate: regular rate Rhythm: regular rhythm Heart sounds: no murmurs GI Palpation (GI): Soft to palpation and nontender Auscultation: normal bowel sounds General: Yes no CVA tenderness Back/Spine/Pelvis Back: no CVA tenderness Thoracic/Lumbar Spine: No lumbar spinal tenderness Skin Rashes: no rashes Extrem General: Yes no clubbing, cyanosis or edema Results Reviewed Results Reviewed: Laboratory Tests 11/30/24 11/30/24 09:37 09:43 WBC 5.1 Hgb 14.2 Hct 44.8 Plt Count 158 L Sodium 139 Potassium 4.2 Creatinine 1.02 Estimated GFR > 60 Fasting Glucose 160 H Hemoglobin A1c % 6.8 H Calcium 9.6 AST 23 ALT 21 Triglycerides 66 Cholesterol 163 LDL Cholesterol, Calc 89 HDL Cholesterol 61 25-OH Vitamin D Total 31.6 TSH 1.14 Ur Specific Plover 1.020 Urine Protein Negative Urine Glucose (UA) Negative Urine Blood Negative Urine Nitrite Negative Ur Leukocyte Esterase Negative Microalb/Creat Ratio 29.9 H Coding Level of Care Code Est Pt Level 4 (63568) Diagnoses Type 2 diabetes mellitus without complication, without long-term current use of insulin E11.9 Diabetes mellitus mcfp insulin use: without mcfp use Benign essential hypertension I10 Obstructive sleep apnea hypopnea, severe G47.33 Vitamin D deficiency E55.9 Primary prostate adenocarcinoma C61 Hypotestosteronism E34.9 History of autoimmune thrombocytopenia Z86.2 Obesity (BMI 30-39.9) E66.9 Additional Codes PHQ-9 - 69790 - PHQ-9 Billing: Yes ([id number]) Assessment & Plan Assessment & Plan (1) Type 2 diabetes mellitus without complication: Code(s): E11.9 - Type 2 diabetes mellitus without complications Category: Medical Qualifiers: 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: without mcfp use Qualified Code(s): E11.9 - Type 2 diabetes mellitus without complications Plan: His HgbA1c was at 6.8% on his labs done done back in November 2024 (was previously at 6.4% late last year) - goal is at least <7.0%, but preferably < 6.5% Reinforced diabetic diet Patient was taken off Metformin a couple of years ago as his sensor was reportedly showing frequent episodes of hypoglycemia and he has been controlling his diabetes with only diet modification since Follow up with endocrinology as scheduled Will have him recheck his FBS, HgbA1c and labs in 4 months for follow up (2) Benign essential hypertension: Code(s): I10 - Essential (primary) hypertension Category: Medical Plan: Reinforced low sodium diet - goal is systolic BP of at least 130 to 140 mm or less Continue Lisinopril 10 mg QD (3) Obstructive sleep apnea hypopnea, severe: Comment: PATIENT IS A KNOWN CASE OF SEVERE OBSTRUCTIVE SLEEP APNEA WITH TOTAL SLEEP TIME AHI 85 PATIENT ON CPAP , VERY COMPLIANT AND BENEFITTING . PRESSURE SETTING 6-20 CM WI TH FULL FACE MASK. COMPLIANCE DATA COULD NOT BE DOWNLOADED. BUT ACCORDING TO HIM HE IS USING EVERY NIGHT AND IS SLEEPING OK. Code(s): G47.33 - Obstructive sleep apnea (adult) (pediatric) Category: Medical Plan: Continue using his CPAP device when sleeping at night daily Follow up with Sleep Medicine as scheduled (4) Vitamin D deficiency: Code(s): E55.9 - Vitamin D deficiency, unspecified Category: Medical Plan: Continue Vitamin D3 2000 units QD (5) Primary prostate adenocarcinoma: Comment: High-grade disease. External beam radiation with hormones September 2020 Code(s): C61 - Malignant neoplasm of prostate Category: Medical Plan: Patient completed external beam radiation with Dr Hill at [facility] (for a total of 8 weeks) back in 2020 He is currently still on GnRH (Eligard 45 mg Q 6 months) - started in 09/2020 Continue Tamsulosin 0.8 mg Q HS Follow up with urology as scheduled (6) Hypotestosteronism: Code(s): E34.9 - Endocrine disorder, unspecified Category: Medical Plan: His serum testosterone level remained very low when last checked last year - he is advised that this is primarily due to his hormone suppression therapy with E ligard Follow up with urology as scheduled (7) History of autoimmune thrombocytopenia: Code(s): Z86.2 - Personal history of diseases of the blood and blood-forming organs and certain disorders involving the immune mechanism Category: Medical Plan: His platelet count has been stable for a while now with no recent recurrence Will continue to monitor his CBC regularly He has not seen hematology / oncology since 2019 - was reportedly advised to jus t follow up with them on an as-needed basis as his platelet count has been stable for years now (8) Obesity (BMI 30-39.9): Comment: LONGSTANDING GROSS OBESITY. PATIENT IS AWARE OF THIS ISSUE AND HE IS TRYING TO LOSE WEIGHT GRADUALLY. NOW IT IS AT A STANDSTILL. Code(s): E66.9 - Obesity, unspecified Category: Medical Plan: Reinforced diet/exercise as tolerated/lose weight Plan Follow up in 4 months Orders: Orders Complete Blood Count Auto Diff 4 Months D64.9 - Anemia, unspecified UA CC w/rflx Micro + Cult 4 Months R30.0 - Dysuria Vitamin D 25-OH Total 4 Months E55.9 - Vitamin D deficiency, unspecified Comprehensive [place]. Panel Fast 4 Months E78.00 - Pure hypercholesterolemia, unspecified Lipid Panel 4 Months E78.00 - Pure hypercholesterolemia, unspecified Hemoglobin A1c 4 Months E11.9 - Type 2 diabetes mellitus without complications Microalbumin, Random (w Creat) 4 Months E11.9 - Type 2 diabetes mellitus without complications TSH reflex Free T4 4 Months E78.00 - Pure hypercholesterolemia, unspecified
[2025-03-09 15:57] VITALS: BP 128/62; PULSE 71; O2SAT 94; BMI 36.0
== END 2025-03-09 16:35 | disposition home or self-care (01) ==
LOC: HO.HMCH 15:30
PROVIDERS: PCP Internal Medicine; Visit Provider Internal Medicine
DX: E11.9 Type 2 diabetes mellitus without complications (principal); C61 Malignant neoplasm of prostate; I10 Essential (primary) hypertension; G47.33 Obstructive sleep apnea (adult) (pediatric); E55.9 Vitamin D deficiency, unspecified; E34.9 Endocrine disorder, unspecified; Z86.2 Personal history of diseases of the blood and blood-forming organs and certain disorders involving the immune mechanism; E66.9 Obesity, unspecified

== ENCOUNTER → 2025-03-09 15:30 | Outpatient (BNVA) | payer MEDICARE, MEDICAID, SELFPAY | PROVIDERS: PCP Internal Medicine; Visit Provider Internal Medicine | DX: E11.9 Type 2 diabetes mellitus without complications (principal); I10 Essential (primary) hypertension; G47.33 Obstructive sleep apnea (adult) (pediatric); E55.9 Vitamin D deficiency, unspecified; C61 Malignant neoplasm of prostate; E34.9 Endocrine disorder, unspecified; E66.9 Obesity, unspecified; Z68.36 Body mass index [BMI] 36.0-36.9, adult; Z86.2 Personal history of diseases of the blood and blood-forming organs and certain disorders involving the immune mechanism; Z71.3 Dietary counseling and surveillance | CPT/HCPCS: 96127; 99212 ==

== ENCOUNTER 2025-07-25 08:40 | Outpatient (REF) | payer MEDICARE, MEDICAID, SELFPAY ==
--- OUTSIDE RECORDS SUMMARY | 2024-12-20 05:15 | XMS_ITS ---
Author Organization [facility] Address [address] [place] [address] Care Team Providers Care Yarn Cleaner Name Role Phone Colton Gagnon MD Primary Care Provider Unava Mary Martinez Unavailable [phone] Brown Encounters Encounter Location Date Provider Diagnosis [facility] [address] [place] [address] 12/20/2024 Mary Hartmann Plan Of Treatment No Information Progress Notes * Fuentes MONTGOMERYDOB:1 (74 yo M)Acc No.[id number]:12/20/2024 Progress Note Patient: Fuentes KAPOOR Provider: Dejah Hartmann DPM :1950 A ge:74 Y S ex:Male Date:12/20/2024 Address:[address] [facility] Pcp:Colton Gagnon MD Subjective: * Chief Complaints: [...] DPM Date: 0 12/20/2024 Generated for Printi ng/Santa/Nevaitting on: 0 07/25/2025 10:06 AM EDT
--- OUTSIDE RECORDS SUMMARY | 2025-04-11 06:15 | XMS_ITS ---
Author Organization [facility] Address [address] [place] [address] Care Team Providers Care Ceramics Machine Operator Name Role Phone Colton Gagnon MD Primary Care Provider Unava Mary Martinez [facility] [phone] Encounters Encounter Location Date Provider Diagnosis [address] [address] 04/11/2025 Mary Hartmann Plan Of Treatment No Information Progress Notes * Fuentes MONTGOMERYDOB:1 (74 yo M)Acc No.[id number]:04/11/2025 Progress Note Patient: Fuentes KAPOOR Provider: Dejah Hartmann DPM :1950 A ge:74 Y S ex:Male Date:04/11/2025 Address: [address] [facility] Pcp:Colton Gagnon MD Subjective: * Chief Complaints: [...] 0 04/11/2025 Generated for Simran belle/Santa/eTransmitting on: 0 07/25/2025 10:06 AM EDT
[2025-07-25 08:51] LABS: MANUAL DIFF FLAG NO
[2025-07-25 09:13] LABS: Hematocrit 41.6 % (42.0-52.0); Hemoglobin 13.2 g/dl (14.0-18.0); Imm Gran Abs Auto 0.01 X10*3/uL (0.00-0.03); Imm Gran Pct Auto 0.2 % (0.0-0.4); Lymphocytes Absolute Auto 1.0 X10*3/uL (1.2-4.9); Mean Corpuscular HGB Conc 31.7 g/dl (31.0-36.0); Mean Corpuscular Hemoglobin 27.3 pg (27.0-33.0); Mean Corpuscular Volume 86.1 fL (80.0-98.0); NRBC Abs Auto 0.000 X10*3/uL (0.0-0.012); NRBC Pct Auto 0.0 /100WBC (0.0-0.2); Platelet Count 164 X10*3/uL (160-400); Red Blood Count 4.83 X10*6/uL (4.60-5.80); White Blood Count 4.8 X10*3/uL (4.8-10.8)
[2025-07-25 09:21] LABS: Hemoglobin A1C 194.0116 umol/L; Total Hemoglobin (HGBA1C) 3390.3282 umol/L
[2025-07-25 09:36] LABS: Appearance Urine Clear; Glucose Urine UA Negative (Negative); PH 5.5 (5.0-9.0); Specific Gravity - Urine 1.020 (1.005-1.025); UMIC TRIGGER UACC YES
[2025-07-25 09:48] LABS: Alanine Aminotransferase 22 U/L (0-40); Albumin Level 4.5 g/dL (3.5-5.0); Alkaline Phosphatase 51 U/L (39-117); Anion Gap 10 (12-20); Aspartate Amino Transferase 25 U/L (5-37); Blood Urea Nitrogen 24 mg/dL (9-16); Calcium 9.2 mg/dL (8.4-10.2); Carbon Dioxide 27 mmol/L (22-29); Chloride 107 mmol/L (96-108); Cholesterol 137 mg/dL (<200); Estimated Glomerular Filt Rate > 60; HDL Cholesterol 52 mg/dL (>40); Potassium 4.0 mmol/L (3.3-5.1); Sodium 140 mmol/L (135-145); Total Protein 7.7 g/dL (6.5-8.0); Triglycerides 39 mg/dL (<150)
[2025-07-25 10:01] LABS: Prostate Specific Antigen < 0.10 ng/mL (<0.05-4.0)
--- OUTSIDE RECORDS SUMMARY | 2025-07-25 10:07 | XMS_ITS | Patient Health Record ---
Author Organization [facility] Address [address] [place] [address] Care Team Providers Care Liner Installer Name Role Phone Kalin STEELE, Colton Primary Care Provider Mary Torres Unavailable [phone] Ada Han Unavailable [phone] Allergies No Known Allergies Results Component Value Reference Range Notes HEMOGLOBIN A1C (GLYCOHEMOGLO BIN) Reviewed date:12/26/2024 09:13:31 AM Interpretation: Performing Lab: Notes/Report: HEMOGLOBIN A1C % (HH) 6.5 Reason For Referral No Information Medications Medication SIG (Take, Route, Frequency, Duration) Notes Start Date End Date Status Ciclopirox Olamine 0.77 % 1 application Externally Twice a day to skin of feet including between the toes; Duration: 30 days Active Lisinopril Active Cholecalciferol Acti ve Tamsulosin HCl Activ e Extra Depth Orthopedic Shoes (1 Pair) with Customized Heat Molded Multidensity Innersoles (3 Pair) as directed Dx: NIDDM/Polyneuropathy (E11.42), Hammertoe Foot Deformity (M20.41,M20.42), Preulcerative Skin Lesion(s) (L85.1 12/26/2024 Active Night Splint AFO - L1930 1 wear at rest; Duration: 30 days Active Social History Tobacco Use: [...] Problem Acquired hammer toe of right foot (566976095214767 5) Other hammer toe(s) (acquired), right foot (M20.41) Active confirmed Problem Acquired hammer toe of left foot (225678994632289 3) Other hammer toe(s) (acquired), left foot (M20.42) Active confirmed Problem Plantar fasciitis of left foot (801292336556204 01) Plantar fasciitis of left foot (M72.2) Active confirmed Problem Interstitial myositis (13902150) Interstitial myositis of left foot (M60.172) Active confirmed Vital Signs Blood pressure diastolic 81 mm Hg 12/26/2024 Height 4va31oz in 12/26/2024 Blood pressure systolic 125 mm Hg 12/26/2024 Weight 255 lbs 12/26/2024 BMI 35.56 kg/m2 12/26/2024 Procedures Procedure Date Ordered Date Performed Result Body Sit e 87504-IYSTFKG NAIL, 6 OR MORE 09/18/2024 N/A Encounters Encounter Location Date Provider Diagnosis [facility] [address] [address] 09/18/2024 Mary Hartmann Pain in left foot M79.672 ; Plantar fasciitis of left foot M72.2 ; Calcaneal spur, left foot M77.32 ; Interstitial myositis of left foot M60.172 ; Bursitis of left foot M77.52 ; Onychomycosis B35.1 ; Pain in right toe(s) M79.674 and Pain in left toe(s) M79.675 [facility] [address] [address] 12/26/2024 Ada Han Plantar fasciitis of left foot M72.2 ; Other hammer toe(s) (acquired), right foot M20.41 ; Calcaneal spur, left foot M77.32 ; Interstitial myositis of left foot M60.172 ; Bursitis of left foot M77.52 ; Onychomycosis B35.1 ; Tinea pedis of both feet B35.3 ; Other hammer toe(s) (acquired), left foot M20.42 and DM type 2 with diabetic peripheral neuropathy E11.[address] [facility] [address] 08/30/2024 [facility] [address] [place] [address] 09/20/2024 Mary Hartmann [facility] [address] 11/28/2024 [facility] Hart[facility] [address] [place] [address] 04/09/2025 Mary Hartmann Assessments Encounter Date Diagnosis (ICD [...] X ray : Foot, left 3V 09/18/2024 [id number]-[id number] NAIL, 6 OR MORE 09/18/2024 Insurance Providers Payer Name Payer Address Payer Phone Subscriber Number Group Number Insured Name Patient Relationship to Insured Coverage Start Date Coverage End Date [employer] Medicare [id number] [address] [address] [place] [address] [id number] Fuentes Malik Self - patient is the insured Medical (General) History Medical History History ICD Code Cancer covid-19 High Blood Pressure
[2025-07-25 10:14] LABS: Microalbum/Creatinine Ratio Ur 66.3 ug/mg cr (<30)
== END 2025-07-25 08:41 | disposition home or self-care (01) ==
LOC: HO.LAB 08:40
PROVIDERS: Urology; PCP Internal Medicine; Visit Provider Internal Medicine
DX: E11.9 Type 2 diabetes mellitus without complications (principal); E55.9 Vitamin D deficiency, unspecified; C61 Malignant neoplasm of prostate; R30.0 Dysuria; E78.00 Pure hypercholesterolemia, unspecified; D64.9 Anemia, unspecified; Z12.5 Encounter for screening for malignant neoplasm of prostate
CPT/HCPCS: 36415; 80053; 80061; 81001; 82043; 82306; 82570; 83036; 84153; 84443; 85025

== ENCOUNTER 2025-08-02 09:21 | Outpatient (AMB) | payer MEDICARE, MEDICAID, SELFPAY ==
--- OUTSIDE RECORDS SUMMARY | 2024-12-20 05:15 | XMS_ITS ---
Author Organization [facility] Address [address] [place] [address] Care Team Providers Care Surveillance Specialist Name Role Phone Colton Gagnon MD Primary Care Provider Unava Mary Martinez Unavailable [phone] Brown Encounters Encounter Location Date Provider Diagnosis [facility] [address] [place] [address] 12/20/2024 Mary Hartmann Plan Of Treatment No Information Progress Notes * Fuentes MONTGOMERYDOB:1 (74 yo M)Acc No.[id number]:12/20/2024 Progress Note Patient: Fuentes KAPOOR Provider: Dejah Hartmann DPM :1950 A ge:74 Y S ex:Male Date:12/20/2024 Address[address] [facility] Pcp:Colton Gagnon MD Subjective: * Chief Complaints: [...] 12/20/2024 Generated for Printi ng/Santa/Nevaitting on: 0 08/02/2025 10:24 AM EDT
--- OUTSIDE RECORDS SUMMARY | 2025-04-11 06:15 | XMS_ITS ---
Author Organization [facility] Address [address] [place] [address] Care Team Providers Care Buffing Machine Operator Semiautomatic Name Role Phone Colton Gagnon MD Primary Care Provider Unava Mary Martinez [facility] [phone] Encounters Encounter Location Date Provider Diagnosis [address] [address] 04/11/2025 Mary Hartmann Plan Of Treatment No Information Progress Notes * Fuentes MONTGOMERYDOB:1 (74 yo M)Acc No.[id number]:04/11/2025 Progress Note Patient: Fuentes KAPOOR Provider: Dejah Hartmann DPM :1950 A ge:74 Y S ex:Male Date:04/11/2025 Address: [address] [facility] Pcp:Colton Gagnon MD Subjective: * Chief Complaints: [...] 04/11/2025 Generated for Simran belle/Santa/eTransmitting on: 0 08/02/2025 10:24 AM EDT
--- NOTE | 2025-08-02 09:25 | MHC.OFFWIV ---
Intake Vital Signs 08/02/25 09:27 Height 5 ft 11 in Weight 260 lb BMI 36.3 BP 126/60 Blood Pressure Location Lt brachial Position Sitting Pulse 78 Pulse Source Pulse Oximeter Temp 99.3 F Temp Source Oral Pulse Oximetry (%) 92 Oxygen Delivery Method Room Air Intake Visit Reasons: ep shortness of breath Intake Note: pt presents with coughing and SOB since yesterday Patient Tobacco Use Status: Former Tobacco user Allergies seafood Adverse Reaction (Mild, Verified 08/02/25 09:27) Nausea and Vomiting Do you need a note to return to daycare/school/sports/work: No HPI HPI Comments History of Present Illness Details History of Present Illness - The patient is a 74-year-old Icelandic speaking male presenting with his son for shortness of breath. - The shortness of breath began acutely yesterday without any preceding cold symptoms. - The patient reports associated abdominal pain and a rattling noise during breathing. - There is no history of recent illness or leg swelling. - The patient has a history of using a CPAP machine for sleep but reports it was not helpful recently. - The patient also experiences a cough and sore throat, with no congestion or runny nose. - He has an inhaler but he does not have a nebulizer. - He denies fever, chills, abd pain, n/v/d. - He denies smoking or recent travel. - He denies sick contacts. Physical Exam General: Cooperative, healthy appearing, comfortable, no acute distress and well developed Orientation: Patient oriented x3 Limitations: No limitations Head: Normal to inspection Ears: Hearing grossly normal bilaterally Nose: Normal external nose present Face and sinus: Normal facial exam Eyes: Appearance normal, both eyes and all related structures Neck: Normal visual inspection and Yes full ROM Respiratory: Abnormal respiratory effort with rattling noise noted. Clear to auscultation bilaterally. No w/r/r noted. Cardiovascular: Regular rate and rhythm. Normal S1 and S2. No m/r/g noted. GI: Normal to inspection. Soft to palpation and nontender, non-distended. No TTP of the abdomen. No guarding or rebound tenderness noted. Skin: No rashes or lesions noted Extremities: Normal to inspection. No edema noted. Patient was informed and verbally consented to the use of an ambient scribe for clinic note documentation during this visit. [facility] Medical History COVID-19 Asthma Vitamin D deficiency Somnolence, daytime Hypotestosteronism Tubular adenoma of colon (~08/20/17) Obesity (BMI 30-39.9) Obstructive sleep apnea hypopnea, severe History of autoimmune thrombocytopenia Type 2 diabetes mellitus without complication Benign essential hypertension Primary prostate adenocarcinoma Synovial cyst of sacral region Asthma Surgical History Status post surgery (~1999) Family History Brother Gallbladder cancer Mother Cancer Social History Household Members: Family Housing: House Alcohol intake: current Alcohol intake frequency: holidays/special occasions only Patient Tobacco Use Status: Former Tobacco user Tobacco use type: Cigarette e-Cigarette/Vaping Use: Never Used Second Hand Smoke Exposure: Yes service: No Current occupational status: disabled Current occupational exposures/hazards: No Cognitive needs: No Hearing needs: No Vision needs: Yes Review of Systems Const All systems reviewed & are unremarkable except as noted in HPI and below Physical Exam Vital Signs: Last Vital Signs Temp 99.3 F 08/02/25 09:27 Pulse 78 08/02/25 09:27 BP 126/60 08/02/25 09:27 Pulse Ox 92 08/02/25 09:27 Oxygen Delivery Method Room Air 08/02/25 09:27 BMI result Body Mass Index 36.3 Office Procedures Nebulizer Treatment Nebulizer Treatment 92149-Pihqlqbzp/MDI RX initial, or Nebulizer Subsequent Treatment Office Meds ipratropium 0.5 mg-albuterol 3 mg (2.5 mg base)/3 mL nebulization soln Performing Provider: Stacie Glover PA-C Performing Location: [facility] [place] [facility] Administered by: Stacie Glover PA-C on 08/02/25 10:15 Dose Route Admin Location Dispensed Lot Number Expiration Date 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 Hazy opacity at the right lung base which may represent pneumonia. Follow-up is recommended to document resolution. Assessment & Plan Assessment & Plan (1) SOB (shortness of breath): Code(s): R06.02 - Shortness of breath Plan Most likely CAP vs covid vs RSV vs flu vs viral illness will give an nebulizer treatment in the office today plan - Plan includes ordering a chest x-ray to rule out pneumonia or COVID-19. - A respiratory swab will be conducted. - tylenol or motrin as needed - tessalon perles as needed - Augmentin BID for 7 days - Z-yocasta as directed - diet as tolerated - advised the ER if he has worsening SOB, fever, leg edema, etc - follow up with PCP Orders: Orders XR chest 2V Today R05.9 - Cough, unspecified AMB Nebulizer Treatment Today R06.02 - Shortness of breath Resp Pathogen Panel - [facility] [place] Today J06.9 - Acute upper respiratory infection, unspecified Medications: New azithromycin For 250 mg dose pack: take 500 mg today (day 1), then 250 mg for 4 days (days 2-5) PO 6 tabs 0RF amoxicillin-pot clavulanate 875-125 mg 1 tab PO Q12H 14 tabs 0RF benzonatate 100 mg PO bid-tid PRN 21 caps 0RF Cough 7 days albuterol sulfate 90 mcg/actuation 2 puffs inhalation Q6H PRN 8.5 grams 0RF shortness of breath or wheezing or cough Coding Level of Care Code Est Pt Level 4 (56218) Diagnoses SOB (shortness of breath) R06.02 CPT Codes Nebulizer Treatment - Nebulizer Treatment, initial or subsequent: 75571-Zahktlmpr/MDI RX initial, or Nebulizer Subsequent Treatment ([id number])
[2025-08-02 09:27] VITALS: BP 126/60; PULSE 78; TEMP 37.4; O2SAT 92; BMI 36.3
--- OUTSIDE RECORDS SUMMARY | 2025-08-02 10:24 | XMS_ITS | Patient Health Record ---
Author Organization 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 Role Phone Kalin STEELE, Colton Primary Care Provider Mary Torres Unavailable [phone] Ada Han Unavailable [phone] Allergies No Known Allergies Results Component Value [...] Problem Acquired hammer toe of right foot (063706096602251 5) Other hammer toe(s) (acquired), right foot (M20.41) Active confirmed Problem Acquired hammer toe of left foot (535280244349050 3) Other hammer toe(s) (acquired), left foot (M20.42) Active confirmed Problem Plantar fasciitis of left foot (019037439431034 01) Plantar fasciitis of left foot (M72.2) Active confirmed Problem Interstitial myositis (83284935) Interstitial myositis of left foot (M60.172) Active confirmed Vital Signs Blood pressure diastolic 81 mm Hg 12/26/2024 Height 0my22mc in 12/26/2024 Blood pressure systolic 125 mm Hg 12/26/2024 Weight 255 lbs 12/26/2024 BMI 35.56 kg/m2 12/26/2024 Procedures Procedure Date Ordered Date Performed Result Body Sit e 08590-IZNXBGP NAIL, 6 OR MORE 09/18/2024 N/A Encounters Encounter Location Date Provider Diagnosis [facility] [address] [phone] 09/18/2024 Mary Hartmann Pain in left foot M79.672 ; Plantar fasciitis of left foot M72.2 ; Calcaneal spur, left foot M77.32 ; Interstitial myositis of left foot M60.172 ; Bursitis of left foot M77.52 ; Onychomycosis B35.1 ; Pain in right toe(s) M79.674 and Pain in left toe(s) M79.675 [facility] [address] [address] 12/26/2024 Ada Han Plantar fasciitis of left foot M72.2 ; Other hammer toe(s) (acquired), right foot M20.41 ; Calcaneal spur, left foot M77.32 ; Interstitial myositis of left foot M60.172 ; Bursitis of left foot M77.52 ; Onychomycosis B35.1 ; Tinea pedis of both feet B35.3 ; Other hammer toe(s) (acquired), left foot M20.42 and DM type 2 with diabetic peripheral neuropathy E11.[address] [facility] [address] 08/30/2024 [facility] [address] [place] [phone] 09/20/2024 Mary Hartmann [facility] [address] 11/28/2024 [facility] [address] [place] [phone] 04/09/2025 Mary Hartmann Assessments Encounter Date Diagnosis [...] X ray : Foot, left 3V 09/18/2024 [id number] NAIL, 6 OR MORE 09/18/2024 Insurance Providers Payer Name Payer Address Payer Phone Subscriber Number Group Number Insured Name Patient Relationship to Insured Coverage Start Date Coverage End Date [employer] Medicare [id number] [address] [address] [place] [address] [id number] Fuentes Malik Self - patient is the insured Medical (General) History Medical History History ICD Code Cancer covid-19 High Blood Pressure
== END 2025-08-02 10:54 | disposition home or self-care (01) ==
PROVIDERS: PCP Internal Medicine; Visit Provider Physician Assistant Medical
DX: R06.02 Shortness of breath (principal)

== ENCOUNTER 2025-08-02 09:21 | Outpatient (REF) | payer MEDICARE, MEDICAID, SELFPAY ==
--- NOTE | ~2025-08-02 | XR_ITS ---
EXAMINATION: XR CHEST 2 VIEWS HISTORY: R05.9 - Cough, unspecified COMPARISON: There are no prior studies available for comparison. FINDINGS: PA and lateral views of the chest are submitted. There is hazy opacity at the right lung base which may represent early pneumonia. The left lung is clear. There is no pleural effusion, pneumothorax, or pulmonary vascular congestion. The heart is normal in size. There is degenerative disc disease of the spine. XR/XR chest 2V IMPRESSION: Cardiomegaly. Hazy opacity at the right lung base which may represent pneumonia. Follow-up is recommended to document resolution. Electronically signed by: Buzz Walsh MD 08/02/2025 10:38 AM EDT
[2025-08-02 16:15] LABS: Chlamydia pneumoniae PCR Not Detected (Not Detect.); Coronavirus 229E PCR Not Detected (Not Detect.); Coronavirus HKU1 PCR Not Detected (Not Detect.); Coronavirus NL63 PCR Not Detected (Not Detect.); Coronavirus OC43 PCR Not Detected (Not Detect.); RSV PCR Not Detected (Not Detect.); Rhino/Enterovirus PCR Detected (Not Detect.)
[2025-08-02 16:16] LABS: Influenza A H1 PCR Not Detected (Not Detect.); Influenza A H1-2009 PCR Not Detected (Not Detect.); Influenza A H3 PCR Not Detected (Not Detect.); SARS-CoV-2 PCR Not Detected (Not Detect.)
== END 2025-08-02 09:22 | disposition home or self-care (01) ==
LOC: HO.HMGCX 09:21
PROVIDERS: PCP Internal Medicine; Visit Provider Physician Assistant Medical
DX: R06.02 Shortness of breath (principal); R05.9 Cough, unspecified; J06.9 Acute upper respiratory infection, unspecified
CPT/HCPCS: 71046; 87633; 94640

== ENCOUNTER → 2025-08-02 10:26 | Outpatient (BNV) | payer MEDICARE, MEDICAID, SELFPAY | PROVIDERS: PCP Internal Medicine; Visit Provider Radiology Diagnostic Radiology | DX: R05.9 Cough, unspecified (principal) | CPT/HCPCS: 71046 ==

== ENCOUNTER 2025-08-09 08:04 | Outpatient (REF) | payer MEDICARE, MEDICAID, SELFPAY ==
[2025-08-09 09:52] LABS: Prostate Specific Antigen < 0.10 ng/mL (<0.05-4.0)
== END 2025-08-09 08:05 | disposition home or self-care (01) ==
LOC: HO.LAB 08:04
PROVIDERS: PCP Internal Medicine; Visit Provider Urology
DX: Z12.5 Encounter for screening for malignant neoplasm of prostate (principal); C61 Malignant neoplasm of prostate; E11.69 Type 2 diabetes mellitus with other specified complication; N52.1 Erectile dysfunction due to diseases classified elsewhere
CPT/HCPCS: 36415; 84153; 99212

== ENCOUNTER 2025-08-09 08:49 | Outpatient (AMB) | payer MEDICARE, MEDICAID, SELFPAY ==
--- OUTSIDE RECORDS SUMMARY | 2024-12-20 05:15 | XMS_ITS ---
Author Organization [facility] Address [address] [place] [address] Care Team Providers Care Bar Host/Hostess Name Role Phone Colton Gagnon MD Primary Care Provider Unava Mary Martinez Unavailable [phone] Brown Encounters Encounter Location Date Provider Diagnosis [facility] [address] [place] [address] 12/20/2024 Mary Hartmann Plan Of Treatment No Information Progress Notes * Fuentes MONTGOMERYDOB:1 (74 yo M)Acc No.[id number]:12/20/2024 Progress Note Patient: Fuentes KAPOOR Provider: Dejah Hartmann DPM :1950 A ge:74 Y S ex:Male Date:12/20/2024 Address[address] [facility] Pcp:Colton Gagnon MD Subjective: * Chief Complaints: [...] 12/20/2024 Generated for Printi ng/Santa/Nevaitting on: 1 09:17 AM EDT
--- OUTSIDE RECORDS SUMMARY | 2025-04-11 06:15 | XMS_ITS ---
Author Organization [facility] Address [address] [place] [address] Care Team Providers Care Social Security Assessor Name Role Phone Colton Gagnno MD Primary Care Provider Unava Mary Martinez [facility] [phone] Encounters Encounter Location Date Provider Diagnosis [address] [address] 04/11/2025 Mary Hartmann Plan Of Treatment No Information Progress Notes * Fuentes MONTGOMERYDOB:1 (74 yo M)Acc No.[id number]:04/11/2025 Progress Note Patient: Fuentes KAPOOR Provider: Dejah Hartmann DPM :1950 A ge:74 Y S ex:Male Date:04/11/2025 Address: [address] [facility] Pcp:Colton Gagnon MD Subjective: * Chief Complaints: [...] 04/11/2025 Generated for Simran belle/Santa/eTransmitting on: 1 09:17 AM EDT
[2025-08-09 09:12] VITALS: BP 132/66; PULSE 76; O2SAT 97; BMI 35.2
--- NOTE | 2025-08-09 09:12 | A.OFFPC_ITS ---
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 Required: No Accompanied by: Self / Same As Patient Allergies seafood Adverse Reaction (Mild, Verified 08/09/25 09:40) Nausea and Vomiting Medication List - Last Reconciled 08/09/25 by Colton Gagnon MD albuterol sulfate 90 mcg/actuation 2 puffs inhalation Q4-6H PRN albuterol sulfate 90 mcg/actuation 2 puffs inhalation Q6H PRN benzonatate 100 mg PO bid-tid PRN 7 days blood sugar diagnostic (Accu-Chek Guide test strips) As directed- once daily blood-glucose meter (Accu-Chek Guide Me Glucose Meter) As directed- once daily cholecalciferol (vitamin D3) 50 mcg PO DAILY PRN lancets (Accu-Chek Softclix Lancets) As directed- once daily lisinopril 10 mg PO DAILY 90 days tamsulosin 0.8 mg (2 x 0.4 mg) PO DAILY Tobacco use date assessed: 08/09/25 Fall risk assessment: No Falls in past year Last assessed Fall Risk: 08/09/25 Dental Screening Dental Screen Date: 08/09/25 Did you have a dental visit in the last 12 months?: Yes Did you have a dental problem in the last 6 months where you did not have access to dental care?: No Was dental information given to patient?: Patient has dentist HPI [facility] F/U HPI Details Patient comes in today for his follow up visit States that he feels okay He denies any headaches or dizziness Denies any chest pains, no SOB No nausea/vomiting, no abdominal pain No change in bowel habits noted He had his follow up labs done a couple of weeks ago - to discuss his results [facility] Medical History COVID-19 Asthma Vitamin D deficiency Somnolence, daytime Hypotestosteronism Tubular adenoma of colon (~08/20/17) Obesity (BMI 30-39.9) Obstructive sleep apnea hypopnea, severe History of autoimmune thrombocytopenia Type 2 diabetes mellitus without complication Benign essential hypertension Primary prostate adenocarcinoma Synovial cyst of sacral region Asthma Surgical History Status post surgery (~1999) Family History Brother Gallbladder cancer Mother Cancer Social History Household Members: Family Housing: House Alcohol intake: current Alcohol intake frequency: holidays/special occasions only Patient Tobacco Use Status: Former Tobacco user Tobacco use type: Cigarette e-Cigarette/Vaping Use: Never Used Second Hand Smoke Exposure: Yes service: No Current occupational status: disabled Current occupational exposures/hazards: No Cognitive needs: No Hearing needs: No Vision needs: Yes Questionnaire PHQ-9 Over the last 2 weeks, how often have you been bothered by any of the following problems? Depression Screening Interpretation: Negative Depression Screening Done: Yes Source: Developed by Drs. Buzz Camacho, Sheree Long, Edgar Meyers and colleagues, with an educational toro from [employer]. Thrive Questionnaire Date Thrive assessed: 03/09/25 I am a: Patient What is your living situation today?: I have a steady place to live Within the past 12 months, did the food you bought not last and you didn't have the money to get more?: Never true Within the past 12 months, did you worry whether your food would run out before you got money to buy more?: Often true Do you have trouble paying for medicines?: No Do you have trouble getting transportation to medical appointments?: No Do you have trouble paying your heating and electricity bill?: No Do you have trouble taking care of your child, family member or friend?: No Do you have trouble with day-to-day activities such as bathing, preparing meals, shopping, managing finances, etc.?: No Are you currently unemployed and looking for a job?: No Are you interested in more education?: No Please select the resources that you would like help with: None Currently or been in a relationship where the following occur: No concerns reported THRIVE Score: 1 AUDIT C Alcohol Use Questionnaire (AUDIT-C) 1. How often do you have a drink containing alcohol?: Never 3. How often do you have six or more drinks on one occasion?: Never Total Score: 0 JIMENEZ-7 AMB Questionnaire JIMENEZ-7 Date JIMENEZ - 7 assessed: 03/09/25 Source: Developed by Drs. Buzz Camacho, Sheree Long, Edgar Meyers and colleagues, with an educational toro from [employer]. Review of Systems Const Denies chills, Denies fatigue, Denies fever(s) and Denies headache(s) ENT Denies dysphagia, Denies dizziness, Denies otalgia, Denies headache(s), Denies neck pain, Denies odynophagia and Denies sore throat Card Denies chest pain, Denies palpitations and Denies dyspnea Resp Denies chest congestion, Denies cough and Denies dyspnea GI Denies abdominal pain, Denies constipation, Denies dysphagia, Denies heartburn, Denies diarrhea, Denies nausea, Denies odynophagia and Denies vomiting Denies difficulty urinating, Denies dysuria, Denies nocturia and Denies urinary frequency Musc Denies back pain and Denies neck pain Skin/Breast Denies rash Neuro Denies dizziness and Denies headache(s) Endo Denies fatigue and Denies palpitations Physical exam (Primary Care) Vital Signs: Last Vital Signs Pulse 76 08/09/25 09:12 BP 132/66 08/09/25 09:12 Pulse Ox 97 08/09/25 09:12 Oxygen Delivery Method Room Air 08/09/25 09:12 BMI result Body Mass Index 35.2 Tobacco/Smoking Status: Tobacco use Status Tobacco use date assessed 08/09/25 08/09/25 09:20 Patient Tobacco Use Status Former Tobacco user 08/09/25 09:20 Tobacco use type Cigarette 08/09/25 09:20 e-Cigarette/Vaping Use Never Used 08/09/25 09:20 Depression Screening Interpretation: Negative Thrive Assessment: Date of Thrive Assessment Date Thrive assessed 03/09/25 08/09/25 09:20 Currently or been in a relationship where the following occur: No concerns reported Const General: no acute distress and alert HENMT Ears: TM's normal bilaterally and EAC's normal Throat: Yes posterior oropharynx normal and Yes tonsils normal (no TP congestion noted) Neck Neck: Yes supple and No lymphadenopathy Thyroid: Thyroid normal Resp Auscultation: clear to auscultation bilaterally, no rales and no wheezes Cardio Rate: regular rate Rhythm: regular rhythm Heart sounds: no murmurs GI Palpation (GI): Soft to palpation and nontender Auscultation: normal bowel sounds General: Yes no CVA tenderness Back/Spine/Pelvis Back: no CVA tenderness Thoracic/Lumbar Spine: No lumbar spinal tenderness Skin Rashes: no rashes Extrem General: Yes no clubbing, cyanosis or edema Results Reviewed Results Reviewed: Laboratory Tests 07/25/25 07/25/25 08:46 08:51 WBC 4.8 Hgb 13.2 L Hct 41.6 L Plt Count 164 Sodium 140 Potassium 4.0 Creatinine 1.14 Estimated GFR > 60 Fasting Glucose 167 H Hemoglobin A1c % 7.4 H Calcium 9.2 AST 25 ALT 22 Triglycerides 39 Cholesterol 137 LDL Cholesterol, Calc 78 HDL Cholesterol 52 Prostate Specific Ag < 0.10 25-OH Vitamin D Total 28.0 L TSH 1.42 Ur Specific [place] 1.020 Urine Protein Trace Urine Glucose (UA) Negative Urine Blood Trace H Urine Nitrite Negative Ur Leukocyte Esterase Negative Microalb/Creat Ratio 66.3 H Coding Level of Care Code Est Pt Level 4 (62648) Diagnoses Type 2 diabetes mellitus without complication E11.9 Benign essential hypertension I10 Obstructive sleep apnea hypopnea, severe G47.33 Vitamin D deficiency E55.9 Primary prostate adenocarcinoma C61 Hypotestosteronism E34.9 History of autoimmune thrombocytopenia Z86.2 Obesity (BMI 30-39.9) E66.9 Assessment & Plan Assessment & Plan (1) Type 2 diabetes mellitus without complication: Code(s): E11.9 - Type 2 diabetes mellitus without complications Category: Medical Plan: His HgbA1c went up to 7.4% on his labs done a couple of weeks ago (was previously at 6.8% a few months ago) - goal is at least <7.0%, but preferably < 6.5% Reinforced diabetic diet Patient was taken off Metformin a couple of years ago as his sensor was reportedly showing frequent episodes of hypoglycemia and he has been controlling his diabetes with only diet modification since As his diabetes control seems to be steadily getting worse over the past year, will try starting him on Tradjenta 5 mg QD - patient states that he did not like the way Metformin made him feel when he was on the medication Follow up with endocrinology as scheduled Will have him recheck his FBS, HgbA1c and labs in 4 months for follow up (2) Benign essential hypertension: Code(s): I10 - Essential (primary) hypertension Category: Medical Plan: Reinforced low sodium diet - goal is systolic BP of at least 130 to 140 mm or less Continue Lisinopril 10 mg QD (3) Obstructive sleep apnea hypopnea, severe: Comment: PATIENT IS A KNOWN CASE OF SEVERE OBSTRUCTIVE SLEEP APNEA WITH TOTAL SLEEP TIME AHI 85 PATIENT ON CPAP , VERY COMPLIANT AND BENEFITTING . PRESSURE SETTING 6-20 CM WITH FULL FACE MASK. COMPLIANCE DATA COULD NOT BE DOWNLOADED. BUT ACCORDING TO HIM HE IS USING EVERY NIGHT AND IS SLEEPING OK. Code(s): G47.33 - Obstructive sleep apnea (adult) (pediatric) Category: Medical Plan: Continue using his CPAP device when sleeping at night daily Follow up with Sleep Medicine as scheduled (4) Vitamin D deficiency: Code(s): E55.9 - Vitamin D deficiency, unspecified Category: Medical Plan: Continue Vitamin D3 2000 units QD (5) Primary prostate adenocarcinoma: Comment: High-grade disease. External beam radiation with hormones September 2020 Code(s): C61 - Malignant neoplasm of prostate Category: Medical Plan: Patient completed external beam radiation with Dr Hill at [facility] (for a total of 8 weeks) back in 2020 He is currently still on GnRH (Eligard 45 mg Q 6 months) - started in 09/2020 Continue Tamsulosin 0.8 mg Q HS Follow up with urology as scheduled (6) Hypotestosteronism: Code(s): E34.9 - Endocrine disorder, unspecified Category: Medical Plan: His serum testosterone level remained very low when last checked last year - he is advised that this is primarily due to his hormone suppression therapy with Eligard Follow up with urology as scheduled (7) History of autoimmune thrombocytopenia: Code(s): Z86.2 - Personal history of diseases of the blood and blood-forming organs and certain disorders involving the immune mechanism Category: Medical Plan: His platelet count has been stable for a while now with no recent recurrence - was normal at [id number] on his recent labs Will continue to monitor his CBC regularly He has not seen hematology / oncology since 2019 - was reportedly advised to just follow up with them on an as-needed basis as his platelet count has been stable for years now (8) Obesity (BMI 30-39.9): Comment: LONGSTANDING GROSS OBESITY. PATIENT IS AWARE OF THIS ISSUE AND HE IS TRYING TO LOSE WEIGHT GRADUALLY. NOW IT IS AT A STANDSTILL. Code(s): E66.9 - Obesity, unspecified Category: Medical Plan: Reinforced diet/exercise as tolerated/lose weight Plan Follow up in 4 months Orders: Orders Hemoglobin A1c 4 Months E11.9 - Type 2 diabetes mellitus without complications Comprehensive Warner. Panel Fast 4 Months E78.00 - Pure hypercholesterolemia, unspecified Microalbumin, Random (w Creat) 4 Months E11.9 - Type 2 diabetes mellitus without complications UA CC w/rflx Micro + Cult 4 Months R30.0 - Dysuria Vitamin B12 and Folate 4 Months E53.8 - Deficiency of other specified B group vitamins Vitamin D 25-OH Total 4 Months E55.9 - Vitamin D deficiency, unspecified Complete Blood Count Auto Diff 4 Months D64.9 - Anemia, unspecified Lipid Panel 4 Months E78.00 - Pure hypercholesterolemia, unspecified TSH reflex Free T4 4 Months E78.00 - Pure hypercholesterolemia, unspecified Medications: New Tradjenta (linagliptin) 5 mg PO QAM 30 tabs 0RF 30 days NS
--- OUTSIDE RECORDS SUMMARY | 2025-08-09 09:17 | XMS_ITS | Patient Health Record ---
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 Role Phone Kalin STEELE, Colton Primary Care Provider Mary Torres Unavailable [phone] Ada Han Unavailable [phone] Allergies No Known Allergies Results Component Value [...] Problem Acquired hammer toe of right foot (316574380190011 5) Other hammer toe(s) (acquired), right foot (M20.41) Active confirmed Problem Acquired hammer toe of left foot (934270703383183 3) Other hammer toe(s) (acquired), left foot (M20.42) Active confirmed Problem Plantar fasciitis of left foot (555914433255505 01) Plantar fasciitis of left foot (M72.2) Active confirmed Problem Interstitial myositis (66280853) Interstitial myositis of left foot (M60.172) Active confirmed Vital Signs Blood pressure diastolic 81 mm Hg 12/26/2024 Height 7hl39be in 12/26/2024 Blood pressure systolic 125 mm Hg 12/26/2024 Weight 255 lbs 12/26/2024 BMI 35.56 kg/m2 12/26/2024 Procedures Procedure Date Ordered Date Performed Result Body Sit e 23360-RXONFOE NAIL, 6 OR MORE 09/18/2024 N/A Encounters Encounter Location Date Provider Diagnosis [facility] [address] [address] 09/18/2024 Mary Hartmann Pain in left foot M79.672 ; Plantar fasciitis of left foot M72.2 ; Calcaneal spur, left foot M77.32 ; Interstitial myositis of left foot M60.172 ; Bursitis of left foot M77.52 ; Onychomycosis B35.1 ; Pain in right toe(s) M79.674 and Pain in left toe(s) M79.[address] [facility] [address] [address] 12/26/2024 Ada Han Plantar fasciitis of left foot M72.2 ; Other hammer toe(s) (acquired), right foot M20.41 ; Calcaneal spur, left foot M77.32 ; Interstitial myositis of left foot M60.172 ; Bursitis of left foot M77.52 ; Onychomycosis B35.1 ; Tinea pedis of both feet B35.3 ; Other hammer toe(s) (acquired), left foot M20.42 and DM type 2 with diabetic peripheral neuropathy E11.[address] [facility] [address] 08/30/2024 [facility] [address] [place] [address] 09/20/2024 Mary Hartmann [facility] [address] 11/28/2024 [facility] [address] [place] [phone] 04/09/2025 Mary Hartmann Assessments Encounter Date Diagnosis [...] X ray : Foot, left 3V 09/18/2024 [id number] NAIL, 6 OR MORE 09/18/2024 Insurance Providers Payer Name Payer Address Payer Phone Subscriber Number Group Number Insured Name Patient Relationship to Insured Coverage Start Date Coverage End Date [employer] Medicare [id number] [address] [address] [place] [address] [phone] [id number] Fuentes Malik Self - patient is the insured Medical (General) History Medical History History ICD Code Cancer covid-19 High Blood Pressure
== END 2025-08-09 09:51 | disposition home or self-care (01) ==
LOC: HO.HMCH 08:49
PROVIDERS: PCP Internal Medicine; Visit Provider Internal Medicine
DX: E11.9 Type 2 diabetes mellitus without complications (principal); C61 Malignant neoplasm of prostate; E66.9 Obesity, unspecified; Z68.37 Body mass index [BMI] 37.0-37.9, adult; G47.33 Obstructive sleep apnea (adult) (pediatric); I10 Essential (primary) hypertension; E55.9 Vitamin D deficiency, unspecified; E34.9 Endocrine disorder, unspecified; Z86.2 Personal history of diseases of the blood and blood-forming organs and certain disorders involving the immune mechanism

== ENCOUNTER 2025-08-16 09:24 | Outpatient (AMB) | payer MEDICARE, MEDICAID, SELFPAY ==
--- NOTE | 2025-08-16 09:24 | MHC.OFFVIS ---
Intake Visit Reasons: 6m/PSA Intake Note: Patient is present for 6M Telehealth /PSA Urology Medication:TAMSULOSIN Antibiotic Allergy:NONE Blood Thinner:NONE Labs done 07/25/25: PSA <0.10 Computer Art Instructor Required: No Accompanied by: Self / Same As Patient Allergies seafood Adverse Reaction (Mild, Verified 08/16/25 09:25) Nausea and Vomiting HPI Comments Details: Fuentes is a pleasant Polish-speaking male. He is a patient of Dr. Gagnon. He is seen for the following urologic conditions - prostate cancer - erectile dysfunction in setting of diabetes Telemedicine Evaluation 15 min Consultation [employer] Mikayla Video Six-month follow-up Polish translation provided by qualified hospitalist medical director Lab work good Has seen occasional blood on stool Discussed impact from radiation Continues with six-month follow-up out to 10 years Prostate cancer diagnosis September 2020, grade group 4, initial therapy EXBRT with hormones Last GnRH 10/28 Labs PSA 07/30 <0.1 T 91, 11/30 <0.1, 03/30 P <0.1 T 224, 07/31 <0.1 T 269, 01/29 <0.1, 08/01 <0.1, 01/30 <0.1, 09/01 <0.1 Prostate cancer diagnosed by Dr. Nina September 2020 Initial biopsy - Jane 8 multi core Initial therapy - external beam radiation with [facility] GnRH - 09/27, 03/28, 10/28 Staging - 08/27 bone scan negative, CT scan NAD PSA 07/29 <0.1 T 17, 12/30 <0.1 16, 07/30 <0.1 T 91 Associated symptoms erectile dysfunction managed with generic Viagra Therapeutic plan continue Q 6 month surveillance Erectile dysfunction Background diabetes Initiate daily tadalafil PFSH Medical History COVID-19 Asthma Vitamin D deficiency Somnolence, daytime Hypotestosteronism Tubular adenoma of colon (~08/20/17) Obesity (BMI 30-39.9) Obstructive sleep apnea hypopnea, severe History of autoimmune thrombocytopenia Type 2 diabetes mellitus without complication Benign essential hypertension Primary prostate adenocarcinoma Synovial cyst of sacral region Asthma Surgical History Status post surgery (~1999) Family History Brother Gallbladder cancer Mother Cancer Social History Household Members: Family Housing: House Alcohol intake: current Alcohol intake frequency: holidays/special occasions only Patient Tobacco Use Status: Former Tobacco user Tobacco use type: Cigarette e-Cigarette/Vaping Use: Never Used Second Hand Smoke Exposure: Yes service: No Current occupational status: disabled Current occupational exposures/hazards: No Cognitive needs: No Hearing needs: No Vision needs: Yes Review of Systems Const All systems reviewed & are unremarkable except as noted in HPI and below Reports no additional complaints Resp Reports no additional complaints GI Reports no additional complaints Reports as per HPI Musc Reports no additional complaints Physical Exam Telemedicine evaluation Appropriate responses Regular breathing rate and rhythm HEENT Head: Yes normal to inspection Ears: hearing grossly normal bilaterally Eyes General: appearance normal, both eyes and all related structures Neck Neck: Yes normal visual inspection Chest Chest palpation & inspection: normal inspection of the chest Resp Effort & Inspection: normal respiratory effort and able to speak in complete sentences Telehealth Telehealth Telehealth Platform: [employer] Location of provider rendering services: practice address Location of patient: address on file Patient Identification confirmed using: Name, : Yes Telehealth method: video Patient verbally consented to treatment: Yes Patient verbally consented to billing insurance company: Yes Patient informed of any privacy concerns related to visit: Yes Minutes spent on Phone/Video with Pt.: 15 Assessment & Plan Assessment & Plan (1) Primary prostate adenocarcinoma: Comment: High-grade disease. External beam radiation with hormones September 2020 Code(s): C61 - Malignant neoplasm of prostate Category: Medical Plan Six-month follow-up PSA Orders: Orders Prostate Specific Antigen 6 Months C61 - Malignant neoplasm of prostate Patient Instructions: This note is constructed using voice recognition software. While every effort has been made to ensure accuracy jig and fixture maker errors may have been included. Imaging studies, laboratory and physical exam results were discussed and reviewed in detail. No major barriers to patient understanding were identified. An opportunity to ask questions regarding the treatment plan was provided. All questions were answered. The patient expressed understanding and agreement with the above treatment plan. The patient is aware they should contact our office by phone for worsening of their current condition or the appearance of new urologic symptoms. Compliance is encouraged with any medications and followup testing that is ordered. It is a privilege to participate in the urologic care of your patient. If you have any questions or concerns regarding treatment for the above conditions, or other urologic issues, please do not hesitate to contact me. The office telephone contact is [phone]. Sincerely, Dr Stuart Long MD, [facility] - Urology Compassionate Specialist Care for the Genitourinary System Coding Level of Care Code Tele Est Pt Level 3 (21623) Complex EM visit Add On G2211 Diagnoses Primary prostate adenocarcinoma C61
== END 2025-08-16 10:38 | disposition home or self-care (01) ==
LOC: HO.HUSH 09:24
PROVIDERS: PCP Internal Medicine; Visit Provider Urology
DX: C61 Malignant neoplasm of prostate (principal)
CPT/HCPCS: 99213; G2211

== ENCOUNTER 2025-08-29 09:40 | Outpatient (AMB) | payer MEDICARE, MEDICAID, SELFPAY ==
--- OUTSIDE RECORDS SUMMARY | 2024-12-20 05:15 | XMS_ITS ---
Author Organization [facility] Address [address] [place] [address] Care Team Providers Care Finisher Merchant Products Name Role Phone Colton Gagnon MD Primary Care Provider Unava Mary Martinez Unavailable [phone] Brown Encounters Encounter Location Date Provider Diagnosis [facility] [address] [place] [address] 12/20/2024 Mary Hartmann Plan Of Treatment No Information Progress Notes * Fuentes MONTGOMERYDOB:1 (75 yo M)Acc No.[id number]:12/20/2024 Progress Note Patient: Fuentes KAPOOR Provider: Dejah Hartmann DPM :1950 A ge:74 Y S ex:Male Date:12/20/2024 Address:[address] [facility] Pcp:Colton Gagnon MD Subjective: * Chief Complaints: [...] 0 12/20/2024 Generated for Printi ng/Santa/Nevaitting on: 1 11:18 AM EDT
--- OUTSIDE RECORDS SUMMARY | 2025-04-11 06:15 | XMS_ITS ---
Author Organization [facility] Address [address] [place] [address] Care Team Providers Care Lens Marker Name Role Phone Colton Gagnon MD Primary Care Provider Unava Mary Martinez [facility] [phone] Encounters Encounter Location Date Provider Diagnosis [address] [address] 04/11/2025 Mary Hartmann Plan Of Treatment No Information Progress Notes * Fuentes MONTGOMERYDOB:1 (75 yo M)Acc No.[id number]:04/11/2025 Progress Note Patient: Fuentes KAPOOR Provider: Dejah Hartmann DPM :1950 A ge:74 Y S ex:Male Date:04/11/2025 [facility] [address] [facility] Pcp:Colton Gagnon MD Subjective: * Chief Complaints: [...] 04/11/2025 Generated for Simran belle/Santa/eTransmitting on: 1 11:18 AM EDT
[2025-08-29 10:19] VITALS: BP 122/58; PULSE 85; O2SAT 96; BMI 35.0
--- NOTE | 2025-08-29 10:19 | MHC.OFFVIS ---
Vital Signs 08/29/25 10:19 Height 5 ft 11 in Weight 251 lb BMI 35.0 BP 122/58 L Blood Pressure Location Lt brachial Position Sitting Pulse 85 Pulse Source Pulse Oximeter Pulse Oximetry (%) 96 Oxygen Delivery Method Room Air Intake Visit Reasons: Obstructive sleep apnea Intake Note: pt is here for follow up and states he recieved a new cpap, air[facility] 11 [facility] he had pneumonia last month, feeling better, some pain in the back in the lung area. Group Exercise Class Instructor Required: Yes Group Exercise Class Instructor Services: Group Exercise Class Instructor Present Group Exercise Class Instructor Name: Karey SINGH Donor Relations Officer: Donor Relations Officer Present Accompanied by: Employee Allergies seafood Adverse Reaction (Mild, Verified 08/29/25 10:32) Nausea and Vomiting Medication List - Last Reconciled 08/29/25 by Tamera Simon MD albuterol sulfate 90 mcg/actuation 2 puffs inhalation Q6H PRN benzonatate 100 mg PO bid-tid PRN 7 days blood sugar diagnostic (Accu-Chek Guide test strips) As directed- once daily blood-glucose meter (Accu-Chek Guide Me Glucose Meter) As directed- once daily cholecalciferol (vitamin D3) 50 mcg PO DAILY PRN lancets (Accu-Chek Softclix Lancets) As directed- once daily lisinopril 10 mg PO DAILY 90 days tamsulosin 0.8 mg (2 x 0.4 mg) PO DAILY Tradjenta (linagliptin) 5 mg PO QAM 30 days NS Do you need a note to return to daycare/school/sports/work: No HPI HPI Obstructive sleep apnea: Details: THIS 75 YEARS OLD GENTLEMAN IS HERE FOR FOLLOW-UP FOR HIS SLEEP APNEA. HE JUST HAD A NEW CPAP DEVICE, WITH FULLFACE MASK. HE IS USING IT REGULARLY EVERY NIGHT, HE IS KEEPING TRACK OF HOW MANY HOURS HE USES, AND IT IS AROUND 7 HOURS PER NIGHT. HAS SOME AIR LEAK AND HE IS TRYING TO ADJUST THE FULLFACE MASK. WEIGHT HAS NOT CHANGED MUCH . BREATHING IS OKAY. HE NEEDS TO USE ALBUTEROL ONLY ONCE IN A WHILE, AND DOES NOT HAVE ANY RESIDUAL. COUGH AT THIS TIME [facility] Medical History COVID-19 Asthma Vitamin D deficiency Somnolence, daytime Hypotestosteronism Tubular adenoma of colon (~08/20/17) Obesity (BMI 30-39.9) Obstructive sleep apnea hypopnea, severe History of autoimmune thrombocytopenia Type 2 diabetes mellitus without complication Benign essential hypertension Primary prostate adenocarcinoma Synovial cyst of sacral region Asthma Surgical History Status post surgery (~1999) Family History Brother Gallbladder cancer Mother Cancer Social History Household Members: Family Housing: House Alcohol intake: current Alcohol intake frequency: holidays/special occasions only Patient Tobacco Use Status: Former Tobacco user Tobacco use type: Cigarette e-Cigarette/Vaping Use: Never Used Second Hand Smoke Exposure: Yes service: No Current occupational status: disabled Current occupational exposures/hazards: No Cognitive needs: No Hearing needs: No Vision needs: Yes Review of Systems Const All systems reviewed & are unremarkable except as noted in HPI and below Eyes Reports no additional complaints ENT Reports no additional complaints Card Denies chest pain, Denies irregular heart rhythm and Denies leg edema Resp Reports cough (Mild to moderate at this time because of COVID infection) and Denies wheezing GI Reports no additional complaints Reports nocturia Musc Reports no additional complaints Skin/Breast Reports dry skin Neuro Reports no additional complaints Psych Reports no additional complaints Aller/Immun Denies wheezing Physical Exam Vital Signs: Last Vital Signs Pulse 85 08/29/25 10:19 BP 122/58 L 08/29/25 10:19 Pulse Ox 96 08/29/25 10:19 Oxygen Delivery Method Room Air 08/29/25 10:19 BMI result Body Mass Index 35.0 LOOKS GROSSLY OBESE WITH A ROUND FACE AND VERY FAT NECK. Const General: comfortable, no acute distress, alert and awake Orientation/consciousness: patient oriented x3 HEENT Head: Yes normal to inspection General nose exam: No nasal polyps present and No nasal discharge present Face and sinus: Yes sinuses nontender Mouth: oropharynx abnormals (MALLAMPATI CLASS 4) Throat: Yes posterior oropharynx normal Eyes General: appearance normal, both eyes and all related structures Neck Neck: Yes normal visual inspection, Yes no lymphadenopathy, Yes trachea midline, Yes no JVD and Yes other (NECK SIZE 19 INCH) Thyroid: Thyroid normal Chest Chest palpation & inspection: normal inspection of the chest, normal palpation of entire chest wall and no tenderness Resp Effort & Inspection: normal respiratory effort Auscultation: clear to auscultation bilaterally, no crackles, no rales and no wheezes Percussion: percussion normal Cardio Palpation: normal PMI Rate: regular rate Rhythm: regular rhythm Heart sounds: no gallops and no murmurs GI Palpation (GI): Soft to palpation, nontender, No hepatosplenomegaly present, no masses and Other GI palpation findings present (IS GROSSLY OBESE AND PROTUBERANT) Auscultation: normal bowel sounds Back/Spine/Pelvis Thoracic/Lumbar Spine: thoracic and lumbar spine normal to inspection Skin General skin exam: no rashes or lesions noted Neuro General: patient oriented x3 and no focal motor deficits Cranial nerves: Yes CN's II-XII intact bilaterally Extrem General: Yes normal to inspection, Yes no clubbing, cyanosis or edema and Yes no calf tenderness Psych Appearance: grossly normal and well kempt Speech and movement: Normal speech and movement present Assessment & Plan Assessment & Plan (1) Obstructive sleep apnea hypopnea, severe: Comment: PATIENT IS A KNOWN CASE OF SEVERE OBSTRUCTIVE SLEEP APNEA WITH TOTAL SLEEP TIME AHI 85 PATIENT ON CPAP , VERY COMPLIANT AND BENEFITTING . PRESSURE SETTING 6-20 CM WITH FULL FACE MASK. COMPLIANCE DATA COULD NOT BE DOWNLOADED. BUT ACCORDING TO HIM HE IS USING AT LEAST 6-7 HOURS EVERY NIGHT AND IS SLEEPING OK. Code(s): G47.33 - Obstructive sleep apnea (adult) (pediatric) Category: Medical Plan: COMMENDED FOR GOOD COMPLIANCE AND ADVISED TO KEEP ON USING THE CPAP EVERY NIGHT. WE ARE TRYING TO CONTACT THE [employer] AND SEE IF WE CAN GET A DOWNLOAD OF THE COMPLIANCE. (2) Asthma: Comment: MILD INTERMITTENT, DOES NOT NEED TO USE ANY BRONCHODILATORS REGULARLY, BUT LATELY HE IS GETTING SOME WHEEZING EPISODES AT NIGHT. Code(s): J45.909 - Unspecified asthma, uncomplicated Category: Medical Plan: OK TO USE ALBUTEROL 2 PUFFS Q 6 HOURS ONLY P.R.N. Coding Level of Care Code Est Pt Level 3 (04416) Diagnoses Obstructive sleep apnea hypopnea, severe G47.33 Asthma J45.909
--- OUTSIDE RECORDS SUMMARY | 2025-08-29 11:18 | XMS_ITS | Patient Health Record ---
Author Organization [facility] Address [address] [place] [address] Care Team Providers Care Rail Bonder Name Role Phone Kalin STEELE, Colton Primary Care Provider Mary Torres Unavailable [phone] Ada Han Unavailable [phone] Allergies No Known Allergies Results Component Value [...] Problem Acquired hammer toe of right foot (169325785402326 5) Other hammer toe(s) (acquired), right foot (M20.41) Active confirmed Problem Acquired hammer toe of left foot (185288713819186 3) Other hammer toe(s) (acquired), left foot (M20.42) Active confirmed Problem Plantar fasciitis of left foot (649350637717820 01) Plantar fasciitis of left foot (M72.2) Active confirmed Problem Interstitial myositis (86058415) Interstitial myositis of left foot (M60.172) Active confirmed Vital Signs Blood pressure diastolic 81 mm Hg 12/26/2024 Height 4ub93ia in 12/26/2024 Blood pressure systolic 125 mm Hg 12/26/2024 Weight 255 lbs 12/26/2024 BMI 35.56 kg/m2 12/26/2024 Procedures Procedure Date Ordered Date Performed Result Body Sit e 90874-HDJEEOF NAIL, 6 OR MORE 09/18/2024 N/A Encounters Encounter Location Date Provider Diagnosis [facility] [address] [address] 09/18/2024 Mary Hartmann Pain in left foot M79.672 ; Plantar fasciitis of left foot M72.2 ; Calcaneal spur, left foot M77.32 ; Interstitial myositis of left foot M60.172 ; Bursitis of left foot M77.52 ; Onychomycosis B35.1 ; Pain in right toe(s) M79.674 and Pain in left toe(s) M79.675 [facility] [address] [address] 12/26/2024 Ada Han Plantar fasciitis of left foot M72.2 ; Other hammer toe(s) (acquired), right foot M20.41 ; Calcaneal spur, left foot M77.32 ; Interstitial myositis of left foot M60.172 ; Bursitis of left foot M77.52 ; Onychomycosis B35.1 ; Tinea pedis of both feet B35.3 ; Other hammer toe(s) (acquired), left foot M20.42 and DM type 2 with diabetic peripheral neuropathy E11.[address] [facility] [address] 08/30/2024 [facility] [address] [place] [address] 09/20/2024 Mary Hartmann [facility] [address] 11/28/2024 [facility] [address] [place] [address] 04/09/2025 Mary Hartmann Assessments Encounter Date Diagnosis [...] X ray : Foot, left 3V 09/18/2024 [id number] NAIL, 6 OR MORE 09/18/2024 Insurance Providers Payer Name Payer Address Payer Phone Subscriber Number Group Number Insured Name Patient Relationship to Insured Coverage Start Date Coverage End Date [employer] Medicare [id number] [address] [address] [place] [address] [id number] Fuentes Malik Self - patient is the insured Medical (General) History Medical History History ICD Code Cancer covid-19 High Blood Pressure
== END 2025-08-29 10:40 | disposition home or self-care (01) ==
LOC: HO.HPS 09:41
PROVIDERS: PCP Internal Medicine; Visit Provider Internal Medicine
DX: G47.33 Obstructive sleep apnea (adult) (pediatric) (principal); J45.909 Unspecified asthma, uncomplicated
CPT/HCPCS: 99213

== ENCOUNTER → 2025-08-29 09:40 | Outpatient (BNVA) | payer MEDICARE, MEDICAID, SELFPAY | PROVIDERS: PCP Internal Medicine; Visit Provider Internal Medicine | DX: G47.33 Obstructive sleep apnea (adult) (pediatric) (principal); J45.909 Unspecified asthma, uncomplicated | CPT/HCPCS: 99212 ==

== ENCOUNTER 2025-09-24 09:37 | Outpatient (REF) | payer MEDICARE, MEDICAID, SELFPAY ==
[2025-09-24 09:53] LABS: MANUAL DIFF FLAG NO
[2025-09-24 10:42] LABS: Hematocrit 40.9 % (42.0-52.0); Hemoglobin 12.3 g/dl (14.0-18.0); Imm Gran Abs Auto 0.02 X10*3/uL (0.00-0.03); Imm Gran Pct Auto 0.4 % (0.0-0.4); Lymphocytes Absolute Auto 0.8 X10*3/uL (1.2-4.9); Mean Corpuscular HGB Conc 30.1 g/dl (31.0-36.0); Mean Corpuscular Hemoglobin 27.0 pg (27.0-33.0); Mean Corpuscular Volume 89.9 fL (80.0-98.0); NRBC Abs Auto 0.000 X10*3/uL (0.0-0.012); NRBC Pct Auto 0.0 /100WBC (0.0-0.2); Platelet Count 157 X10*3/uL (160-400); Red Blood Count 4.55 X10*6/uL (4.60-5.80); White Blood Count 4.7 X10*3/uL (4.8-10.8)
[2025-09-24 11:37] LABS: Alanine Aminotransferase 24 U/L (0-40); Albumin Level 4.2 g/dL (3.5-5.0); Alkaline Phosphatase 52 U/L (39-117); Anion Gap 12 (12-20); Aspartate Amino Transferase 32 U/L (5-37); Blood Urea Nitrogen 24 mg/dL (9-16); Calcium 9.2 mg/dL (8.4-10.2); Carbon Dioxide 26 mmol/L (22-29); Chloride 105 mmol/L (96-108); Estimated Glomerular Filt Rate > 60; Potassium 4.5 mmol/L (3.3-5.1); Sodium 138 mmol/L (135-145); Total Protein 7.3 g/dL (6.5-8.0)
[2025-09-24 11:41] LABS: Appearance Urine Clear; Glucose Urine UA Negative (Negative); PH 5.5 (5.0-9.0); Specific Gravity - Urine 1.020 (1.005-1.025); UMIC TRIGGER UACC YES
== END 2025-09-24 09:38 | disposition home or self-care (01) ==
LOC: HO.LAB 09:37
PROVIDERS: PCP Internal Medicine; Visit Provider Internal Medicine
DX: R53.83 Other fatigue (principal); R63.5 Abnormal weight gain; R06.09 Other forms of dyspnea; E78.00 Pure hypercholesterolemia, unspecified; D64.9 Anemia, unspecified; E11.9 Type 2 diabetes mellitus without complications; R30.0 Dysuria
CPT/HCPCS: 36415; 80053; 81001; 81003; 83036; 83880; 84443; 85025

== ENCOUNTER 2025-09-26 07:38 | Outpatient (REF) | payer MEDICARE, MEDICAID, SELFPAY ==
--- OUTSIDE RECORDS SUMMARY | 2024-12-20 04:15 | XMS_ITS ---
Author Organization [facility] Address [address] [place] [address] Care Team Providers Care Cruise Counselor Name Role Phone Colton Gagnon MD Primary Care Provider Unava Mary Martinez Unavailable [phone] Brown Encounters Encounter Location Date Provider Diagnosis [facility] [address] [place] [address] 12/20/2024 Mary Hartmann Plan Of Treatment No Information Progress Notes * Fuentes MONTGOMERYDOB:1 (75 yo M)Acc No.[id number]:12/20/2024 Progress Note Patient: Fuentes KAPOOR Provider: Dejah Hartmann DPM :1950 A ge:74 Y S ex:Male Date:12/20/2024 Address:[address] [facility] Pcp:Colton Gagnon MD Subjective: * Chief Complaints: [...] 12/20/2024 Generated for Printi ng/Santa/Sonny on: 1 11/26/2024 03:06 PM EST
--- OUTSIDE RECORDS SUMMARY | 2025-04-11 05:15 | XMS_ITS ---
Author Organization [facility] Address [address] [place] [address] Care Team Providers Care Pad Making Machine Operator Name Role Phone Colton Gagnon MD Primary Care Provider Unava Mary Martinez [facility] [phone] Encounters Encounter Location Date Provider Diagnosis [address] [address] 04/11/2025 Mary Hartmann Plan Of Treatment No Information Progress Notes * Fuentes MONTGOMERYDOB:1 (75 yo M)Acc No.[id number]:04/11/2025 Progress Note Patient: Fuentes KAPOOR Provider: Dejah Hartmann DPM :1950 A ge:74 Y S ex:Male Date:04/11/2025 Address[address] [facility] Pcp:Colton Gagnon MD Subjective: * Chief Complaints: * * Medical History: Objective: * Vitals: Assessment: Plan: * Treatment: * Images: * The named appointment provid er may or may not be the originator of this progress note, and it is not deemed complete until electronically signed by the appointment provider. Sign off status: Pending * Provider: Dejah Hartmann DPM Date: 0 04/11/2025 Generated for Simran belle/Santa/eTransmitting on: 1 11/26/2024 03:07 PM EST
--- NOTE | ~2025-09-26 | XR_ITS ---
EXAMINATION: XR CHEST 2 VIEWS HISTORY: R06.00 - Dyspnea, unspecified COMPARISON: Comparison is made with the prior examination dated 08/02/2025. FINDINGS: PA and lateral views of the chest are submitted. There is mild pulmonary vascular prominence with scattered Agatha B lines and thickening of the fissures, compatible with interstitial edema. There is no pleural effusion or pneumothorax. The heart is enlarged. There is degenerative disc disease of the spine. XR/XR chest 2V IMPRESSION: Cardiomegaly and mild interstitial edema. Electronically signed by: Buzz Walsh MD 09/26/2025 08:08 AM [facility]
--- OUTSIDE RECORDS SUMMARY | 2025-09-26 15:07 | XMS_ITS | Patient Health Record ---
Author Organization [facility] fredi Switzer Address [address] [facility] [place] [address] Care Team Providers Care Customer Account Executive Name Role Phone Kalin STEELE, Colton Primary Care Provider Mary Torres Unavailable [phone] Ada Han Unavailable [phone] Allergies No Known Allergies Reason For Referral No Information Medications Medication [...] Problem Acquired hammer toe of right foot (082653321404227 5) Other hammer toe(s) (acquired), right foot (M20.41) Active confirmed Problem Acquired hammer toe of left foot (149084117683830 3) Other hammer toe(s) (acquired), left foot (M20.42) Active confirmed Problem Plantar fasciitis of left foot (629169071126300 01) Plantar fasciitis of left foot (M72.2) Active confirmed Problem Interstitial myositis (66108410) Interstitial myositis of left foot (M60.172) Active confirmed Vital Signs Blood pressure diastolic 81 mm Hg 12/26/2024 Height 3ol67fu in 12/26/2024 Blood pressure systolic 125 mm Hg 12/26/2024 Weight 255 lbs 12/26/2024 BMI 35.56 kg/m2 12/26/2024 Encounters Encounter [facility] Date [facility] [address] [facility]/26[facility] Ada Han Plantar fasciitis of left foot M72.2 ; Other hammer toe(s) (acquired), right foot M20.41 ; Calcaneal spur, left foot M77.32 ; Interstitial myositis of left foot M60.172 ; Bursitis of left foot M77.52 ; Onychomycosis B35.1 ; Tinea pedis of both feet B35.3 ; Other hammer toe(s) (acquired), left foot M20.42 and DM type 2 with diabetic peripheral neuropathy E11.42 [facility] [address] 11/28/2024 [facility] [address] [address] 04/09/2025 Mary Hartmann Assessments Encounter Date Diagnosis (ICD Code) Assessment Notes Treatment Notes Treatment Clinical Notes Section Notes 12/26/2024 Other hammer toe(s) (acquired), right foot (ICD-10 - M20.41) Patient Educated with: DIABETIC FOOT CARE INSTRUCTIONS.p df (DIABETIC FOOT CARE INSTRUCTIONS.p df) 12/26/2024 Plantar fasciitis of left foot (ICD-10 - M72.2) 12/26/2024 Calcaneal spur, left foot (ICD-10 - M77.32) 12/26/2024 Interstitial myositis of left foot (ICD-10 - M60.172) 12/26/2024 Bursitis of left foot (ICD-10 - M77.52) 12/26/2024 Onychomycosis (ICD-10 - B35.1) 12/26/2024 Tinea pedis of both feet (ICD-10 - B35.3) 12/26/2024 Other hammer toe(s) (acquired), left foot (ICD-10 - M20.42) 12/26/2024 DM type 2 with diabetic peripheral neuropathy (ICD-10 - E11.42) Plan Of Treatment Pending Test Test Name Order Date X ray : Foot, left 3V 09/18/2024 [id number] NAIL, 6 OR MORE 09/18/2024 Insurance Providers Payer Name Payer Address Payer Phone Subscriber Number Group Number Insured Name Patient Relationship to Insured Coverage Start Date Coverage End Date [employer] Medicare [id number] [address] [address] [place] [address] [id number] Fuentes Malik Self - patient is the insured Medical (General) History Medical History History ICD Code Cancer covid-19 High Blood Pressure
== END 2025-09-26 07:39 | disposition home or self-care (01) ==
LOC: HO.XRAY 07:38
PROVIDERS: PCP Internal Medicine; Visit Provider Internal Medicine
DX: R06.00 Dyspnea, unspecified (principal)
CPT/HCPCS: 71046

== ENCOUNTER → 2025-09-26 07:41 | Outpatient (BNV) | payer MEDICARE, MEDICAID, SELFPAY | PROVIDERS: PCP Internal Medicine; Visit Provider Radiology Diagnostic Radiology | DX: I51.7 Cardiomegaly (principal); J81.0 Acute pulmonary edema | CPT/HCPCS: 71046 ==

== ENCOUNTER 2025-09-27 16:05 | Outpatient (AMB) | payer MEDICARE, MEDICAID, SELFPAY ==
--- OUTSIDE RECORDS SUMMARY | 2024-12-20 04:15 | XMS_ITS ---
Author Organization [facility] Address [address] [place] [address] Care Team Providers Care Green Meat Grader Name Role Phone Colton Gagnon MD Primary Care Provider Unava Mary Martinez Unavailable [phone] Brown Encounters Encounter Location Date Provider Diagnosis [facility] [address] [place] [address] 12/20/2024 Mary Hartmann Plan Of Treatment No Information Progress Notes * Fuentes MONTGOMERYDOB:1 (75 yo M)Acc No.[id number]:12/20/2024 Progress Note Patient: Fuentes KAPOOR Provider: Dejah Hartmann DPM :1950 A ge:74 Y S ex:Male Date:12/20/2024 Address[address] [id number] Pcp:Colton Gagnon MD Subjective: * Chief Complaints: [...] 12/20/2024 Generated for Printi ng/Santa/Sonny on: 1 11/27/2024 08:55 PM EST
--- OUTSIDE RECORDS SUMMARY | 2025-04-11 05:15 | XMS_ITS ---
Author Organization [facility] Address [address] [place] [address] Care Team Providers Care Experimental Flight Test Mechanic Name Role Phone Colton Gagnon MD Primary Care Provider Unava Mary Martinez [facility] [phone] Encounters Encounter Location Date Provider Diagnosis [address] [address] 04/11/2025 Mary Hartmann Plan Of Treatment No Information Progress Notes * Fuentes MONTGOMERYDOB:1 (75 yo M)Acc No.[id number]:04/11/2025 Progress Note Patient: Fuentes KAPOOR Provider: Dejah Hartmann DPM :1950 A ge:74 Y S ex:Male Date:04/11/2025 [facility] [facility] Pcp:Colton Gagnon MD Subjective: * Chief Complaints: [...] 04/11/2025 Generated for Simran belle/Santa/eTransmitting on: 1 11/27/2024 08:55 PM EST
--- NOTE | 2025-09-27 16:21 | MHC.PC.OV ---
Vital Signs 09/27/25 16:22 Height 5 ft 11 in Weight 266 lb BMI 37.1 BP 142/72 H Blood Pressure Location Lt brachial Position Sitting Respiration 18 Pulse 94 Pulse Source Pulse Oximeter Temp Source Temporal Artery Scan Pulse Oximetry (%) 97 Oxygen Delivery Method Room Air Intake Visit Reasons: SOB/?CHF Executive Coach Required: Yes Executive Coach Name: [id number]/Bishop Accompanied by: Self / Same As Patient Allergies seafood Adverse Reaction (Mild, Verified 09/27/25 16:36) Nausea and Vomiting Medication List - Last Reconciled 09/27/25 by MEGHAN López albuterol sulfate 90 mcg/actuation 2 puffs inhalation Q6H PRN benzonatate 100 mg PO bid-tid PRN 7 days blood sugar diagnostic (Accu-Chek Guide test strips) As directed- once daily blood-glucose meter (Accu-Chek Guide Me Glucose Meter) As directed- once daily cholecalciferol (vitamin D3) 50 mcg PO DAILY PRN lancets (Accu-Chek Softclix Lancets) As directed- once daily lisinopril 10 mg PO DAILY 90 days tamsulosin 0.8 mg (2 x 0.4 mg) PO DAILY Tradjenta (linagliptin) 5 mg PO QAM 30 days NS Tobacco use date assessed: 09/27/25 Fall risk assessment: No Falls in past year Last assessed Fall Risk: 09/27/25 Dental Screening Dental Screen Date: 09/27/25 Did you have a dental visit in the last 12 months?: No Did you have a dental problem in the last 6 months where you did not have access to dental care?: No Was dental information given to patient?: No HPI HPI Comments History of Present Illness Details History of Present Illness The patient is a 75 year old individual presenting for follow-up for dyspnea, fluid retention, and gastrointestinal symptoms. The patient reports ongoing but slightly improved labored breathing and denies any cough. The patient has plus 3 pitting edema in bilateral lower extremities. His pro BNP is 5526.8, chest x-ray shows mild pulmonary vascular prominence with scattered Agatha B lines and thickening of the fissures, compatible with interstitial edema. The patient a1c 7.2% increased from previous reading; reports stopping Tradjenta due to side effects. The patient reports altered bowel habits, including increased frequency of up to 3-4 times, sometimes consisting of liquid and gas. The patient experiences gas, which can be painful, but denies heartburn or belching. The patient describes the stool as dark brown color and denies seeing any blood. The patient reports that prior to the loose stools he was constipated and he took Metamucil for two days and stopped then he started having more frequent stools that are not regular. Health Maintenance - A lab test is planned in one week to monitor potassium levels due to the initiation of diuretic therapy. - A stool study will be ordered to investigate altered bowel habits. Social History Results [facility] Medical History COVID-19 Asthma Vitamin D deficiency Somnolence, daytime Hypotestosteronism Tubular adenoma of colon (~08/20/17) Obesity (BMI 30-39.9) Obstructive sleep apnea hypopnea, severe History of autoimmune thrombocytopenia Type 2 diabetes mellitus without complication Benign essential hypertension Primary prostate adenocarcinoma Synovial cyst of sacral region Asthma Surgical History Status post surgery (~1999) Family History Brother Gallbladder cancer Mother Cancer Social History Household Members: Family Housing: House Alcohol intake: current Alcohol intake frequency: holidays/special occasions only Patient Tobacco Use Status: Former Tobacco user Tobacco use type: Cigarette e-Cigarette/Vaping Use: Never Used Second Hand Smoke Exposure: Yes service: No Current occupational status: disabled Current occupational exposures/hazards: No Cognitive needs: No Hearing needs: No Vision needs: Yes Questionnaire Thrive Questionnaire Date Thrive assessed: 09/27/25 I am a: Patient What is your living situation today?: I have a steady place to live Within the past 12 months, did the food you bought not last and you didn't have the money to get more?: Never true Within the past 12 months, did you worry whether your food would run out before you got money to buy more?: Often true Do you have trouble paying for medicines?: No Do you have trouble getting transportation to medical appointments?: No Do you have trouble paying your heating and electricity bill?: No Do you have trouble taking care of your child, family member or friend?: No Do you have trouble with day-to-day activities such as bathing, preparing meals, shopping, managing finances, etc.?: No Are you currently unemployed and looking for a job?: No Are you interested in more education?: No Please select the resources that you would like help with: None Currently or been in a relationship where the following occur: No concerns reported THRIVE Score: 1 JIMENEZ-7 AMB Questionnaire JIMENEZ-7 Date JIMENEZ - 7 assessed: 03/09/25 Feeling nervous, anxious, or on edge: 0 = Not at all Not being able to stop or control worryin = Not at all Worrying too much about different things: 0 = Not at all Trouble relaxin = Not at all Being so restless that it is hard to sit still: 0 = Not at all Becoming easily annoyed or irritable: 0 = Not at all Feeling afraid as if something awful might happen: 0 = Not at all Total JIMENEZ-7 score (0-4 normal; 5-9 mild; 10-14 moderate; 15-21 severe): 0 Source: Developed by Drs. Buzz Camacho, Sheree Long, Egdar Meyers and colleagues, with an educational toro from [employer]. Review of Systems Narrative Review of Systems - Respiratory: Reports a sensation of labored breathing which has slightly improved. - Denies cough. - Gastrointestinal: Reports having gas which is sometimes painful, and bowel movements up to 3-4 times a day, which can be liquidy. - Reports dark stools. - Denies blood in stool, heartburn, or belching. Const Reports lethargy Eyes Denies loss of vision ENT Reports no additional complaints Card Denies chest pain, Denies chest pain with activity, Denies claudication, Reports leg edema, Reports dyspnea on exertion and Reports orthopnea Resp Denies chest congestion, Reports cough, Reports dyspnea on exertion and Denies wheezing GI Reports bloating, Reports GI cramping, Reports excessive flatus and Reports loose stools Reports no additional complaints Neuro Denies loss of vision Aller/Immun Denies wheezing Physical exam (Primary Care) Vital Signs: Last Vital Signs Pulse 94 09/27/25 16:22 Resp 18 09/27/25 16:22 BP 142/72 H 09/27/25 16:22 Pulse Ox 97 09/27/25 16:22 Oxygen Delivery Method Room Air 09/27/25 16:22 BMI result Body Mass Index 37.1 Tobacco/Smoking Status: Tobacco use Status Tobacco use date assessed 09/27/25 09/27/25 16:34 Patient Tobacco Use Status Former Tobacco user 09/27/25 16:34 Tobacco use type Cigarette 09/27/25 16:34 e-Cigarette/Vaping Use Never Used 09/27/25 16:34 Thrive Assessment: Date of Thrive Assessment Date Thrive assessed 09/27/25 09/27/25 16:34 Currently or been in a relationship where the following occur: No concerns reported Narrative Physical Exam Const General: cooperative [facility] Head: Yes normal to inspection Ears: hearing grossly normal bilaterally General nose exam: Normal external nose present Face and sinus: Yes normal facial exam Throat: Yes posterior oropharynx normal Eyes Pupils: Equal, round and reactive pupils present Neck Neck: Yes no lymphadenopathy Chest Chest palpation & inspection: no tenderness Resp Auscultation: no wheezes and diminished lung sounds bilateral in the lower lung doyle Cardio Rate: regular rate Rhythm: regular rhythm Heart sounds: S1 normal heart sound present and S2 normal heart sound present GI Inspection: Yes Abdominal wall edema, Yes distended and Yes obesity Palpation (GI): Soft to palpation, not firm, nontender and No hepatosplenomegaly present Auscultation: Hyperactive bowel sounds present Rectal Exam - Male: Yes deferred General: Yes no CVA tenderness Back/Spine/Pelvis Back: no CVA tenderness Skin General skin exam: dry skin Neuro Cranial nerves: Yes Equal, round and reactive pupils present Extrem Right lower extremity: lower leg Details: pitting edema Details: 3+ Left lower extremity: lower leg Details: pitting edema Details: 3+ Psych Affect: normal affect Attitude: cooperative Results Reviewed Results Reviewed: Laboratory Tests 09/24/25 09/24/25 09:43 09:51 WBC 4.7 L RBC 4.55 L Hgb 12.3 L Hct 40.9 L MCV 89.9 MCH 27.0 MCHC 30.1 L RDW 15.4 Plt Count 157 L MPV 12.1 Sodium 138 Potassium 4.5 Chloride 105 Carbon Dioxide 26 Anion Gap 12 BUN 24 H Creatinine 1.11 Estimated GFR > 60 Random Glucose 189 H Estimat Average Glucose 160 Hemoglobin A1c % 7.2 H Calcium 9.2 Total Bilirubin 1.1 H AST 32 ALT 24 Alkaline Phosphatase 52 NT-Pro-B Natriuret Pep 5526.8 H Total Protein 7.3 Albumin 4.2 TSH 1.50 Urine Color Dark Yellow Urine Appearance Clear Urine pH 5.5 Ur Specific [place] 1.020 Urine Protein 300 (3+) H Urine Glucose (UA) Negative Urine Ketones Trace Urine Blood Negative Urine Nitrite Negative Ur Leukocyte Esterase Negative Urine RBC 0-2 Urine WBC 0-5 Ur Squamous Epith Cells 0-2 Hyaline Casts 3-5 Coding Level of Care Code Est Pt Level 4 (89287) Diagnoses Elevated brain natriuretic peptide (BNP) level R79.89 Type 2 diabetes mellitus without complication E11.9 SOB (shortness of breath) R06.02 Constipation, unspecified constipation type K59.00 Constipation type: unspecified constipation type Benign essential hypertension I10 Hypervolemia, unspecified hypervolemia type E87.70 Hypervolemia type: unspecified Time Spent (min) 38 Assessment & Plan Assessment & Plan (1) Elevated brain natriuretic peptide (BNP) level: Code(s): R79.89 - Other specified abnormal findings of blood chemistry Category: Medical (2) Type 2 diabetes mellitus without complication: Code(s): E11.9 - Type 2 diabetes mellitus without complications Category: Medical (3) SOB (shortness of breath): Code(s): R06.02 - Shortness of breath Category: Medical (4) Constipation: Code(s): K59.00 - Constipation, unspecified Category: Medical Qualifiers: Constipation type: unspecified constipation type Qualified Code(s): K59.00 - Constipation, unspecified (5) Benign essential hypertension: Code(s): I10 - Essential (primary) hypertension Category: Medical (6) Fluid overload: Code(s): E87.70 - Fluid overload, unspecified Category: Medical Qualifiers: Hypervolemia type: unspecified Qualified Code(s): E87.70 - Fluid overload, unspecified Plan Plan Patient was informed and verbally consented to the use of an ambient scribe for clinic note documentation during this visit. 1. Fluid Overload The patient is assessed to have a fluid buildup. A prescription for a diuretic, furosemide 40mg daily x 1 week (Lasix), will be provided to help eliminate excess fluid. Recheck bmp in one week. 2. Altered Bowel Habits The patient reports increased frequency of bowel movements, which are sometimes liquid with gas, alongside painful gas. A stool study will be ordered to further evaluate these symptoms. Suspects possible constipation with stool leaking around hard stools. An abdominal X-ray was ordered for further evaluation. 3. Medication Monitoring Due to the initiation of diuretic therapy, lab monitoring is required. A lab test will be ordered for one week from now to check potassium levels, and blood pressure and blood sugar will also be checked. 4. Diabetes Patient self-discontinuing Tradjenta due to self-perceives side effects that might be related. For instance, c/o SOB, which might have been related to current pulmonary edema. Was on metformin in the past without side effects. Metformin 500mg BID ordered. Will recheck fasting glucose and a1c in 4 months. 5. HTN Elevated blood pressure possible related to fluid overload. Reinforced low salt diet. Lasix 40 mg daily x 1 week ordered. Continue lisinopril 10 mg per Discussion Notes I discussed with the patient that I believe there is a buildup of fluid, and I will be prescribing a diuretic (Lasix) to help with this. I explained the need to monitor potassium levels with this medication and that we will repeat blood work in about one week to ensure the level is good. We also reviewed the gastrointestinal symptoms, and I informed the patient that I will order a stool study for further evaluation. Patient Instructions - Take the new water pill, Lasix, as prescribed to help your body get rid of extra fluid. - You will need to get a blood test in about one week to check your potassium levels. - A test on your stool (bowel movement) will be ordered to check for the cause of your stomach issues. - Please check with the electrician front to schedule your lab tests. Orders: Orders Basic Metabolic Panel 1 Week I50.9 - Heart failure, unspecified XR abdomen min 2V 09/27/25 K59.00 - Constipation, unspecified, R10.9 - Unspecified abdominal pain Medications: New furosemide (Lasix) 40 mg PO DAILY 7 tabs 0RF 1 week metformin 500 mg PO BID 60 tabs 3RF
[2025-09-27 16:22] VITALS: BP 142/72; PULSE 94; RESP 18; O2SAT 97; BMI 37.1
--- OUTSIDE RECORDS SUMMARY | 2025-09-27 20:55 | XMS_ITS | Patient Health Record ---
Author Organization [facility] [address] [place] Address [address] [place] [address] Care Team Providers Care Concrete Mason Name Role Phone Kalin STEELE, Colton Primary Care Provider Mary Torres Unavailable [phone] Ada Han Unavailable [phone] Allergies No Known Allergies Reason For Referral [...] Problem Acquired hammer toe of right foot (658617074299166 5) Other hammer toe(s) (acquired), right foot (M20.41) Active confirmed Problem Acquired hammer toe of left foot (629395813259938 3) Other hammer toe(s) (acquired), left foot (M20.42) Active confirmed Problem Plantar fasciitis of left foot (452931739655662 01) Plantar fasciitis of left foot (M72.2) Active confirmed Problem 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) Interstitial myositis of left foot (M60.172) Active confirmed Vital Signs Blood pressure diastolic 81 mm Hg 12/26/2024 Height 0ur73df in 12/26/2024 Blood pressure systolic 125 mm Hg 12/26/2024 Weight 255 lbs 12/26/2024 BMI 35.56 kg/m2 12/26/2024 Encounters Encounter [facility] Date [facility] [address] [facility] Ada Han Plantar fasciitis of left [...] 2 with diabetic peripheral neuropathy E11.[facility] [address] [facility]/28[facility] [address] [address] 04/09/2025 Mary Hartmann Assessments Encounter Date Diagnosis [...] X ray : Foot, left 3V 09/18/2024 [id number] NAIL, 6 OR MORE 09/18/2024 Insurance Providers Payer Name Payer Address Payer Phone Subscriber Number Group Number Insured Name Patient Relationship to Insured Coverage Start Date Coverage End Date [employer] Medicare [id number] [address] [address] [place] [address] [id number] Fuentes Malik Self - patient is the insured Medical (General) History Medical History History ICD Code Cancer covid-19 High Blood Pressure
== END 2025-09-27 17:15 | disposition home or self-care (01) ==
LOC: HO.HMCH 16:06
PROVIDERS: PCP Internal Medicine
DX: R79.89 Other specified abnormal findings of blood chemistry (principal); E11.9 Type 2 diabetes mellitus without complications; R06.02 Shortness of breath; K59.00 Constipation, unspecified; I10 Essential (primary) hypertension; E87.70 Fluid overload, unspecified

== ENCOUNTER → 2025-09-27 16:05 | Outpatient (BNVA) | payer MEDICARE, MEDICAID, SELFPAY | PROVIDERS: PCP Internal Medicine | DX: R79.89 Other specified abnormal findings of blood chemistry (principal); R06.02 Shortness of breath; E11.9 Type 2 diabetes mellitus without complications; K59.00 Constipation, unspecified; I10 Essential (primary) hypertension; E87.70 Fluid overload, unspecified | CPT/HCPCS: 99212 ==

== ENCOUNTER 2025-09-28 09:23 | Outpatient (REF) | payer MEDICARE, MEDICAID, SELFPAY ==
--- OUTSIDE RECORDS SUMMARY | 2024-12-20 04:15 | XMS_ITS ---
Author Organization [facility] Address [address] [place] [address] Care Team Providers Care Examining Chair Assembler Name Role Phone Colton Gagnon MD Primary Care Provider Unava Mary Martinez Unavailable [phone] Brown Encounters Encounter Location Date Provider Diagnosis [facility] [address] [place] [address] 12/20/2024 Mary Hartmann Plan Of Treatment No Information Progress Notes * Fuentes MONTGOMERYDOB:1 (75 yo M)Acc No.[id number]:12/20/2024 Progress Note Patient: Fuentes KAPOOR Provider: Dejah Hartmann DPM :1950 A ge:74 Y S ex:Male Date:12/20/2024 Address[address] [facility] Pcp:Colton Gagnon MD Subjective: * Chief Complaints: [...] 12/20/2024 Generated for Printi ng/Santa/Sonny on: 1 11/28/2024 09:47 AM EST
--- OUTSIDE RECORDS SUMMARY | 2025-04-11 05:15 | XMS_ITS ---
Author Organization [facility] Address [address] [place] [address] Care Team Providers Care Supervisor Special Effects Name Role Phone Colton Gagnon MD Primary Care Provider Unava Mary Martinez [facility] [phone] Encounters Encounter Location Date Provider Diagnosis [address] [address] 04/11/2025 Mary Hartmann Plan Of Treatment No Information Progress Notes * Fuentes MONTGOMERYDOB:1 (75 yo M)Acc No.[id number]:04/11/2025 Progress Note Patient: Fuentes KAPOOR Provider: Dejah Hartmann DPM :1950 A ge:74 Y S ex:Male Date:04/11/2025 Address:[address] [facility] Pcp:Colton Gagnon MD Subjective: * Chief Complaints: [...] 04/11/2025 Generated for Simran belle/Santa/eTransmitting on: 1 11/28/2024 09:48 AM EST
--- NOTE | ~2025-09-28 | XR_ITS ---
EXAMINATION: XR ABDOMEN COMPLETE CLINICAL INDICATION: K59.00 - Constipation, unspecified COMPARISON: Correlated to CT abdomen pelvis dated August 23, 2020. TECHNIQUE: AP view abdomen and pelvis in supine and upright position. of the abdomen. FINDINGS: Limited examination due to patient's body habitus/obesity. There is gas throughout intestine. No intestinal dilatation. Abundant stool. No gross air-fluid levels. Multilevel thoracolumbar spondylosis. Vascular clips overlapping the symphysis pubis. Degenerative changes in the sacroiliac joints and coxofemoral joints. XR/XR abdomen min 2V IMPRESSION: Abundant stool without intestinal obstruction pattern. Electronically signed by: Biju Reynolds MD 09/28/2025 09:52 AM EST
--- OUTSIDE RECORDS SUMMARY | 2025-09-28 09:48 | XMS_ITS | Patient Health Record ---
Author Organization [facility] [address] [place] Address [address] [place] [address] Care Team Providers Care Assisted Living Housekeeper Name Role Phone Kalin STEELE, Colton Primary Care Provider Mary Torres Unavailable [phone] Ada Han Unavailable [phone] Allergies No Known Allergies Reason For Referral [...] Problem Acquired hammer toe of right foot (187986676011591 5) Other hammer toe(s) (acquired), right foot (M20.41) Active confirmed Problem Acquired hammer toe of left foot (115730597211157 3) Other hammer toe(s) (acquired), left foot (M20.42) Active confirmed Problem Plantar fasciitis of left foot (319473505305625 01) Plantar fasciitis of left foot (M72.2) Active confirmed Problem Interstitial myositis (52132845) Interstitial myositis of left foot (M60.172) Active confirmed Vital Signs Blood pressure diastolic 81 mm Hg 12/26/2024 Height [id number] in 12/26/2024 Blood pressure systolic 125 mm Hg 12/26/2024 Weight 255 lbs 12/26/2024 BMI 35.56 kg/m2 12/26/2024 Encounters Encounter [facility] Date [facility] [address] [facility]/26/[facility] Ada Han Plantar fasciitis of left foot M72.2 ; Other hammer toe(s) (acquired), right foot M20.41 ; Calcaneal spur, left foot M77.32 ; Interstitial myositis of left foot M60.172 ; Bursitis of left foot M77.52 ; Onychomycosis B35.1 ; Tinea pedis of both feet B35.3 ; Other hammer toe(s) (acquired), left foot M20.42 and DM type 2 with diabetic peripheral neuropathy E11.42 [facility] [address] 11/28/2024 [facility] [address] [address] 04/09/2025 Mary Hartmann Assessments Encounter Date Diagnosis [...] X ray : Foot, left 3V 09/18/2024 [id number] NAIL, 6 OR MORE 09/18/2024 Insurance Providers Payer Name Payer Address Payer Phone Subscriber Number Group Number Insured Name Patient Relationship to Insured Coverage Start Date Coverage End Date [employer] Medicare [id number] [address] [address] [place] [address] [id number] Fuentes Malik Self - patient is the insured Medical (General) History Medical History History ICD Code Cancer covid-19 High Blood Pressure
== END 2025-09-28 09:24 | disposition home or self-care (01) ==
LOC: HO.XRAY 09:23
PROVIDERS: PCP Internal Medicine; Visit Provider Internal Medicine
DX: R10.9 Unspecified abdominal pain (principal); K59.00 Constipation, unspecified
CPT/HCPCS: 74019

== ENCOUNTER → 2025-09-28 09:28 | Outpatient (BNV) | payer MEDICARE, MEDICAID, SELFPAY | PROVIDERS: PCP Internal Medicine; Visit Provider Radiology Diagnostic Radiology | DX: K59.00 Constipation, unspecified (principal) | CPT/HCPCS: 74019 ==

== ENCOUNTER → 2025-10-02 09:46 | Outpatient (REF) | payer MEDICARE, MEDICAID, SELFPAY ==
--- NOTE | 2025-10-02 09:50 | CA_ITS ---
Transthoracic Echocardiogram Patient (Last, First, Middle): Fuentes Malik, Gender: M Date of : 1950 Age: 75 Procedure Date: 10/02/2025 Procedure Type: Transthoracic Echocardiogram Location: OP Height: 180.34 cm Weight: 120.66 kg BSA: 2.38 m2 Heart Rate: bpm BP: 130 / 72 mmHg Under Ground Miner: TO Referring MD: Colton Gagnon MD Symptoms: R06.09 - Other forms of dyspnea Study Quality: Fair/Contrast ECG Rhythm: Sinus Conclusions: - The left ventricular systolic function is severely decreased. The calculated ejection fraction is 21% by biplane method. - No obvious valvular pathology seen on this study. - Moderate to severe pulmonary hypertension is present. Findings Procedure Information Contrast agent, definity, is being given per protocol without apparent complications. Left Ventricle Severely increased left ventricular cavity size. There is mildly increased left ventricular wall thickness. The left ventricular systolic function is severely decreased. The calculated ejection fraction is 21% by biplane method. There is severe global hypokinesis. There is a flattened septum in systole consistent with right ventricular pressure overload. Diastolic function is indeterminate on the basis of available data. Wall Motion Rest Echo Findings The mid anteroseptal segment is akinetic. Right Ventricle Moderately increased right ventricular cavity size. There is normal right ventricular systolic function. Atria Moderate biatrial enlargement. Aortic Valve There is mild calcification of the aortic valve. There is no aortic valve stenosis. There is trace (trivial) aortic valve regurgitation. Mitral Valve There is mild mitral annular calcification. There is mild mitral valve regurgitation. There is no mitral valve stenosis. Pulmonic Valve The pulmonic valve is likely normal. Tricuspid Valve There is mild tricuspid valve regurgitation. Moderate to severe pulmonary hypertension is present. Great Vessels The asc aorta is normal in size. Venous The inferior vena cava is dilated and collapses less than 50% with inspiration. Pericardium/Pleural There is no evidence of pericardial effusion. Prior Study Comparison No prior study available for comparison. Recommendations, Care & Conclusions No obvious valvular pathology seen on this study. Measurements 2D Linear Measurements IVSd: 1.02 0.6-0.9/0.6-1.0 cm LVIDd: 6.87 3.9-5.3/4.2-5.9 cm LVIDd Index: 2.89 2.4-3.2/2.2-3.1 cm/m2 LVIDs: 6.50 2.0-3.6 cm LVPWd: 1.15 0.7-1.1 cm LA Diam: 4.80 2.7-3.8/3.0-4.0 cm LAIDs Index: 2.02 1.5-2.3 cm/m2 LV Mass: 431.10 67-162/88-224 g LV Mass Index: 181.14 43-95/49-115 g/m2 LVOT Diam: 2.50 3.0+(-)1.3 cm 2D Systolic Function EF 4C: 26.80 >55% EF 2C: 16.30 >55% EF BiP: 20.80 >55% Mitral Valve MV Pk E: 0.79 MV Decel Time: 160.00 E'Lateral: 6.59 E'Medial: 3.81 E/E' Med: 20.80 E/E' Lat: 12.00 PHT: 47.00 MVA PHT: 4.68 Decel Simpson: 4.96 Aortic Valve AoV Pk Jose: 1.34 AoV Mn Jose: 0.98 AoV VTI: 0.27 AoV Pk Grad: 7.00 Aov Mn Grad: 4.00 GLADYS Cont.VTI: 2.79 LVOT LVOT Pk Jose: 0.79 LVOT Mn Jose: 0.56 LVOT VTI: 0.15 LVOT Pk Grad: 2.00 LVOT Mn Grad: 1.00 LVOT Diam: 2.50 LVOT Area: 4.91 Diastolic Function MV Pk E: 0.79 E'Medial: 3.81 E/E' Med: 20.80 E' Laterial: 6.59 E/E' Lat: 12.00 Right Ventricle TAPSE (mm): 23.60 TVS' Jose: 11.10 Tricuspid Valve TR Pk Jose: 3.53 TR Pk Grad: 50.00 RA Press: 15.00 RVSP: 65.00 Great Vessels Aorta Sinus of Valsalva: 4.14 2.0-3.[address] [place]: 3.57 1.7-3.4 cm Ao Asc: 3.90 2.1-3.4 cm Updated in Other Vendor System with Status of Final Royce Lyons MD electronically signed on 10/02/2025 12:45:26 PM with status of Final
[2025-10-02 12:47] LABS: Anion Gap 13 (12-20); Blood Urea Nitrogen 27 mg/dL (9-16); Calcium 9.6 mg/dL (8.4-10.2); Carbon Dioxide 30 mmol/L (22-29); Chloride 102 mmol/L (96-108); Estimated Glomerular Filt Rate 54; Potassium 4.1 mmol/L (3.3-5.1); Sodium 141 mmol/L (135-145)
== END ==
LOC: HO.CARD 09:46
PROVIDERS: PCP Internal Medicine; Visit Provider Internal Medicine
DX: R06.09 Other forms of dyspnea (principal); R79.89 Other specified abnormal findings of blood chemistry
CPT/HCPCS: 36415; 80048; 93306; Q9957

== ENCOUNTER → 2025-10-02 09:50 | Outpatient (BNV) | payer MEDICARE, MEDICAID, SELFPAY | PROVIDERS: PCP Internal Medicine; Visit Provider Internal Medicine | DX: I27.20 Pulmonary hypertension, unspecified (principal) | CPT/HCPCS: 93306 ==

== ENCOUNTER 2025-10-08 14:11 | Outpatient (AMB) | payer MEDICARE, MEDICAID, SELFPAY ==
[2025-10-08 14:14] VITALS: BP 120/66; PULSE 64; BMI 36.6
--- NOTE | 2025-10-08 14:14 | A.OFFVIS_ITS ---
Vital Signs 10/08/25 14:14 Height 5 ft 11 in Weight 262 lb 5.601 oz BMI 36.6 BP 120/66 Blood Pressure Location Lt brachial Position Sitting Pulse 64 Pulse Source Monitor Intake Visit Reasons: abnormal echo Kids Club Attendant Required: Yes Kids Club Attendant Services: Kids Club Attendant Offered & Declined Accompanied by: Daughter Allergies seafood Adverse Reaction (Mild, Verified 09/27/25 16:36) Nausea and Vomiting Medication List - Last Reconciled 10/08/25 by Royce Lyons MD albuterol sulfate 90 mcg/actuation 2 puffs inhalation Q6H PRN benzonatate 100 mg PO bid-tid PRN 7 days blood sugar diagnostic (Accu-Chek Guide test strips) As directed- once daily blood-glucose meter (Accu-Chek Guide Me Glucose Meter) As directed- once daily carvedilol (Coreg) 3.125 mg PO BID 90 days cholecalciferol (vitamin D3) 50 mcg PO DAILY PRN dapagliflozin propanediol (Farxiga) 10 mg PO DAILY docusate sodium (Colace) 100 mg PO BID 14 days furosemide (Lasix) 40 mg PO DAILY 90 days lancets (Accu-Chek Softclix Lancets) As directed- once daily metformin 500 mg PO BID sacubitril-valsartan 24-26 mg (Entresto) 1 tab PO BID 90 days sennosides (Senna Lax) 8.6 mg PO BEDTIME PRN tamsulosin 0.8 mg (2 x 0.4 mg) PO DAILY HPI Comments Details: Fuentes is here for consultation regarding shortness of breath. Per patient, started few weeks back. Denies any previous history of coronary disease or myocardial infarction or cardiomyopathy or in fact any other cardiac issues. Seems to obesity, obstructive sleep apnea, diabetes and hypertension at baseline. His PCP had started him on diuretics and after that, he is feeling better. Shortness of breath is much improved now. No exertional anginal-type symptoms. [facility] Medical History COVID-19 Asthma Vitamin D deficiency Somnolence, daytime Hypotestosteronism Tubular adenoma of colon (~08/20/17) Obesity (BMI 30-39.9) Obstructive sleep apnea hypopnea, severe History of autoimmune thrombocytopenia Type 2 diabetes mellitus without complication Benign essential hypertension Primary prostate adenocarcinoma Synovial cyst of sacral region Asthma Surgical History Status post surgery (~1999) Family History (Updated 10/08/25 @ 14:28 by Annie Wylie) Brother Gallbladder cancer Mother Cancer Father High blood pressure Social History (Updated 10/08/25 @ 14:29 by Annie Wylie) Household Members: Family Housing: House Alcohol intake: former Patient Tobacco Use Status: Former Tobacco user Tobacco use type: Cigarette e-Cigarette/Vaping Use: Never Used Second Hand Smoke Exposure: Yes service: No Current occupational status: disabled Current occupational exposures/hazards: No Cognitive needs: No Hearing needs: No Vision needs: Yes Review of Systems Const Denies weakness ENT Reports dizziness Card Denies chest pain, Denies chest pain with activity, Denies syncope, Denies rapid heart rate, Denies pedal edema, Denies edema, Reports leg edema, Denies lightheadedness, Denies palpitations, Reports dyspnea, Denies dyspnea on e xertion and Denies orthopnea Resp Denies cough, Reports dyspnea and Denies dyspnea on exertion GI Denies hematochezia and Denies change in stool character Musc Denies abnormal gait, Denies muscle cramps, Denies muscle weakness, Denies numbness, Denies radiating pain into limb and Denies tingling Neuro Denies abnormal gait, Reports dizziness, Denies syncope, Denies numbness, Denies tingling and Denies weakness Endo Denies palpitations Physical Exam Vital Signs: Last Vital Signs Pulse 64 10/08/25 14:14 BP 120/66 10/08/25 14:14 BMI result Body Mass Index 36.6 Const General: comfortable and no acute distress Orientation/consciousness: patient oriented x3 HEENT Other: Unremarkable Head: Yes normal to inspection Neck Neck: Yes normal visual inspection Chest Chest palpation & inspection: normal inspection of the chest Resp Auscultation: clear to auscultation bilaterally Cardio Palpation: normal PMI Heart sounds: S1 normal heart sound present, S2 normal heart sound present, no gallops, no murmurs and no rubs GI Palpation (GI): Soft to palpation Back/Spine/Pelvis Other: unremarkable Skin General skin exam: no rashes or lesions noted Neuro General: patient oriented x3 Extrem General: Yes normal to inspection Psych Mental Status: mental status grossly normal Office Procedures EKG Details: EKG with sinus rhythm at 64/Min; sinus arrhythmias; DC prolongation to 240 milliseconds; right bundle-branch block; PVCs vs escape beats. 34967-[id number], Complete Assessment & Plan Assessment & Plan (1) Acute congestive heart failure: Code(s): I50.9 - Heart failure, unspecified Category: Medical Plan In the echocardiogram, severely increased right ventricular cavity size with severe LV dysfunction and ejection fraction of 21%. No significant valvular findings. [id number]-rg-[id number] pulmonary hypertension. Findings discussed with patient and family. He needs guideline based medical therapy to be optimized. He already has conduction system disease and hence will not be able tolerate much beta-blockers. Try a small dose of carvedilol. Stop lisinopril. After about 2 days, start Entresto. We discussed about this specifically. Start Farxiga. In a few weeks' time, we will also plan on starting spironolactone presuming labs stay stable. Otherwise, due to risk factors as well as the severe cardiomyopathy, he needs a diagnostic catheterization to assess for any obstructive CAD. We discussed about this as well and they are agreeable. We will schedule this in a few weeks' time due to scheduling issues and additionally would prefer him to be euvolemic and stable for the procedure. Discussion Notes I discussed with the patient and the patient's family that the recent heart ultrasound indicates the heart is weak and not pumping effectively. I explained the necessity of investigating for underlying blockages in the heart's arteries, which could be the cause of the weak heart muscle, especially given the patient's age. I recommended a coronary angiogram, explaining that it involves going through the wrist into the heart to inject dye and check for blockages. I informed them that this procedure would likely be scheduled for November. I advised a change in medications to better support heart function. I instructed the patient to stop taking lisinopril immediately due to cough and to start a new medication on Wednesday, allowing for a two-day gap. I confirmed that the patient should continue the daily furosemide (water pill). We will have a follow-up visit in one month, and I instructed them to call me if the patient experiences any worsening shortness of breath in the interim. Patient was informed and verbally consented to the use of an ambient scribe for clinic note documentation during this visit. Orders: Orders Cardiac Cath LT Diagnostic Today I25.10 - Atherosclerotic heart disease of [place] coronary artery without angina pectoris Complete Blood Count no Diff Today I10 - Essential (primary) hypertension Prothrombin Time INR Today I25.10 - Atherosclerotic heart disease of [place] coronary artery without angina pectoris Basic Metabolic Panel Today I50.9 - Heart failure, unspecified Medications: New dapagliflozin propanediol (Farxiga) 10 mg PO DAILY 90 tabs 3RF carvedilol (Coreg) must administer with a meal/food 3.125 mg PO BID 180 tabs 1RF 90 days sacubitril-valsartan 24-26 mg (Entresto) 1 tab PO BID 180 tabs 1RF 90 days Changed From furosemide (Lasix) 40 mg PO DAILY 1 week 30 tabs 0RF To furosemide (Lasix) 40 mg PO DAILY 90 tabs 1RF 90 days Discontinued lisinopril Discontinued Reason: Doctor's Order 10 mg PO DAILY 90 days 90 tabs 1RF Patient Instructions: - Stop taking your Lisinopril medication immediately. - You will start a new heart medication on Wednesday, after being off Lisinopril for two days. - Continue to take your water pill (Furosemide) every day. - Continue all your other regular medications as prescribed. - We will schedule a heart test called an angiogram for November to check for blockages in your heart. - You will have a follow-up appointment in one month. - If you become more short of breath, call the office right away or seek emergency care. Coding Level of Care Code New Pt Level 5 (45516) Complex visit Add On G2211 Diagnoses Acute congestive heart failure I50.9 CPT Codes EKG - CPT: 21743-[id number], Complete ([id number])
== END 2025-10-08 15:04 | disposition home or self-care (01) ==
LOC: HO.HCS 14:12
PROVIDERS: PCP Internal Medicine; Visit Provider Internal Medicine
DX: I50.9 Heart failure, unspecified (principal)
CPT/HCPCS: 93010; 99214; G2211

== ENCOUNTER → 2025-10-08 14:11 | Outpatient (BNVA) | payer MEDICARE, MEDICAID, SELFPAY | PROVIDERS: PCP Internal Medicine; Visit Provider Internal Medicine | DX: I25.10 Atherosclerotic heart disease of native coronary artery without angina pectoris (principal); I50.9 Heart failure, unspecified; R93.1 Abnormal findings on diagnostic imaging of heart and coronary circulation | CPT/HCPCS: 93005; 99212 ==

== ENCOUNTER 2025-11-02 08:50 | Outpatient (REF) | payer MEDICARE, MEDICAID, SELFPAY ==
--- OUTSIDE RECORDS SUMMARY | 2024-12-20 04:15 | XMS_ITS ---
Author Organization [facility] Address [address] [place] [address] Care Team Providers Care Search Engine Optimization Manager Name Role Phone Colton Gagnon MD Primary Care Provider Unava Mary Martinez Unavailable [phone] Brown Encounters Encounter Location Date Provider Diagnosis [facility] [address] [place] [address] 12/20/2024 Mary Hartmann Plan Of Treatment No Information Progress Notes * Fuentes MONTGOMERYDOB:1 (75 yo M)Acc No.[id number]:12/20/2024 Progress Note Patient: Fuentes KAPOOR Provider: Dejah Hartmann DPM :1950 A ge:74 Y S ex:Male Date:12/20/2024 Address[address] [facility] Pcp:Colton Gagnon MD Subjective: * Chief Complaints: * [address] Brown[address] * Medical History: Objective: * Vitals: Assessment: Plan: * Treatment: * Images: * The named appointment provid er may or may not be the originator of this progress note, and it is not deemed complete until electronically signed by the appointment provider. Sign off status: Pending * Provider: Dejah Hartmann DPM Date: 0 12/20/2024 Generated for Printi ng/Santa/Sonny on: 1 01/03/2025 08:54 AM EST
--- OUTSIDE RECORDS SUMMARY | 2025-04-11 05:15 | XMS_ITS ---
Author Organization [facility] Address [address] [place] [address] Care Team Providers Care Animal Control Supervisor Name Role Phone Colton Gagnon MD Primary Care Provider Unava Mary Martinez [facility] [phone] Encounters Encounter Location Date Provider Diagnosis [address] [address] 04/11/2025 Mary Hartmann Plan Of Treatment No Information Progress Notes * Fuentes MONTGOMERYDOB:1 (75 yo M)Acc No.[id number]:04/11/2025 Progress Note Patient: Fuentes KAPOOR Provider: Dejah Hartmann DPM :1950 A ge:74 Y S ex:Male Date:04/11/2025 [facility] [address] [facility] Pcp:Colton Gagnon MD Subjective: * Chief Complaints: [...] 04/11/2025 Generated for Simran belle/Santa/eTransmitting on: 1 01/03/2025 08:54 AM EST
--- OUTSIDE RECORDS SUMMARY | 2025-11-02 08:54 | XMS_ITS | Patient Health Record ---
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 Name Role Phone Kalin STEELE, Colton Primary Care Provider Mary Torres Unavailable [phone] Ada Han Unavailable [phone] Allergies No Known Allergies Results Component Value Reference Range Notes HEMOGLOBIN A1C (GLYCOHEMOGLO BIN) Reviewed date:10/11/2025 03:52:25 PM Interpretation: Performing Lab: Notes/Report: HEMOGLOBIN A1C % (HH) 7.2 Reason For Referral No Information Medications Medication [...] Problem Acquired hammer toe of right foot (946339969200844 5) Other hammer toe(s) (acquired), right foot (M20.41) Active confirmed Problem Acquired hammer toe of left foot (263279614643325 3) Other hammer toe(s) (acquired), left foot (M20.42) Active confirmed Problem Plantar fasciitis of left foot (206758632548474 01) Plantar fasciitis of left foot (M72.2) Active confirmed Problem 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 Vital Signs Blood pressure diastolic 81 mm Hg 12/26/2024 Height 3ww19qs in 12/26/2024 Blood pressure systolic 125 mm Hg 12/26/2024 Weight 255 lbs 12/26/2024 BMI 35.56 kg/m2 12/26/2024 Encounters Encounter Location Date Provider Diagnosis [address] [address] 12/26/2024 Ada Benjamína Plantar fasciitis of left foot M72.2 ; Other hammer toe(s) (acquired), right foot M20.41 ; Calcaneal spur, left foot M77.32 ; Interstitial myositis of left foot M60.172 ; Bursitis of left foot M77.52 ; Onychomycosis B35.1 ; Tinea pedis of both feet B35.3 ; Other hammer toe(s) (acquired), left foot M20.42 and DM type 2 with diabetic peripheral neuropathy E11.[address] [facility] [address] 11/28/2024 [facility] [address] [place] [phone] 04/09/2025 [facility] [address] 10/11/2025 Mary Hartmann Assessments Encounter Date Diagnosis (ICD [...] X ray : Foot, left 3V 09/18/2024 [id number] NAIL, 6 OR MORE 09/18/2024 Insurance Providers Payer Name Payer Address Payer Phone Subscriber Number Group Number Insured Name Patient Relationship to Insured Coverage Start Date Coverage End Date [employer] Medicare [id number] [address] [address] [place] [address] [phone] [id number] Fuentes Malik Self - patient is the insured Medical (General) History Medical History History ICD Code Cancer covid-19 High Blood Pressure
[2025-11-02 09:29] LABS: Hematocrit 46.8 % (42.0-52.0); Hemoglobin 14.4 g/dl (14.0-18.0); Mean Corpuscular HGB Conc 30.8 g/dl (31.0-36.0); Mean Corpuscular Hemoglobin 26.3 pg (27.0-33.0); Mean Corpuscular Volume 85.4 fL (80.0-98.0); NRBC Abs Auto 0.000 X10*3/uL (0.0-0.012); NRBC Pct Auto 0.0 /100WBC (0.0-0.2); Platelet Count 143 X10*3/uL (160-400); Red Blood Count 5.48 X10*6/uL (4.60-5.80); White Blood Count 4.5 X10*3/uL (4.8-10.8)
[2025-11-02 09:34] LABS: INTERNATIONAL NORM RATIO 1.0 (0.9-1.1); Prothrombin Time 11.9 SEC (11.2-13.5)
[2025-11-02 10:13] LABS: Anion Gap 13 (12-20); Blood Urea Nitrogen 34 mg/dL (9-16); Calcium 9.2 mg/dL (8.4-10.2); Carbon Dioxide 24 mmol/L (22-29); Chloride 107 mmol/L (96-108); Estimated Glomerular Filt Rate 46; Potassium 4.3 mmol/L (3.3-5.1); Sodium 140 mmol/L (135-145)
== END 2025-11-02 08:51 | disposition home or self-care (01) ==
LOC: HO.LAB 08:50
PROVIDERS: PCP Internal Medicine; Visit Provider Internal Medicine
DX: I11.0 Hypertensive heart disease with heart failure (principal); I50.9 Heart failure, unspecified; I25.10 Atherosclerotic heart disease of native coronary artery without angina pectoris
CPT/HCPCS: 36415; 80048; 85027; 85610